=== PATIENT | male | born 1940 | race Caucasian/White ===

== ENCOUNTER → 2018-05-09 11:51 | Outpatient (CLI) | payer MEDICARE, BC, SELFPAY ==
--- NOTE | 2018-05-09 11:59 | XR_ITS ---
XR shoulder RT min 2V HISTORY: ITS.REASON: RT SHOULDER PAIN ORDERING PHYSICIAN: Renny Lee MD PATIENT AGE: 77 years Comparison: None FINDINGS: No fracture or dislocation. No lytic or blastic change. No significant arthritic change. There is minimal cortical irregularity of the greater tuberosity. Pleural-parenchymal opacification with pleural thickening is noted on the right with blunting of the right CP angle. There are no previous exams available for comparison. IMPRESSION: 1. Cortical irregularity of the greater tuberosity which may be seen with rotator cuff disease 2. Chronic changes of the right lung
== END ==
PROVIDERS: PCP Family Medicine; Visit Provider Family Medicine
DX: M25.511 Pain in right shoulder (principal)
CPT/HCPCS: 73030

== ENCOUNTER → 2019-12-23 13:37 | Outpatient (CLI) | payer MEDICARE, BC, SELFPAY ==
--- NOTE | 2019-12-23 | CA_ITS ---
APPROVED REPORT Left Lower Extremity Venous Study for DVT. [employer]: CT Indications Lower Extremity Pain: Left DVT of Lower Extremity: Left Vein Imaging CFV (L): compressive, spontaneous, phasic, augmentation SFJ (L): compressive, spontaneous, phasic, augmentation FEM (L): compressive, spontaneous, phasic, augmentation POP (L): compressive, spontaneous, phasic, augmentation DFV (L): compressive, spontaneous, phasic, augmentation PTV (L): compressive, spontaneous, phasic, augmentation GSV (L): compressive, spontaneous, phasic, augmentation SSV (L): compressive, spontaneous, phasic, augmentation Peroneals (L):compressive, spontaneous, phasic, augmentation GAS (L): compressive, spontaneous, phasic, augmentation Findings LLE negative for DVT/SVT. Vessels fully compressible. No reflux noted. Conclusion LLE negative for DVT/SVT. Vessels fully compressible. No reflux noted. Electronically signed by : Dominic Joya MD 12/23/2019 17:24:28
== END ==
PROVIDERS: PCP Family Medicine; Visit Provider Nurse Practitioner
DX: M79.662 Pain in left lower leg (principal)
CPT/HCPCS: 93971

== ENCOUNTER → 2020-01-13 09:11 | Outpatient (CLI) | payer MEDICARE, BC, SELFPAY ==
--- NOTE | 2020-01-13 | CA_ITS ---
APPROVED REPORT EXAM: Comprehensive 2D, Doppler, and color-flow Echocardiogram Tip Inserter: Daya Chery RT(R) Ht: 5 ft 8 in Wt: 148lbs BSA: 1.80 BP: 145/82 mmHg Indications: Palpitations, edema, HTN, SÁNCHEZ, hyperlipidemia, hx of CABG, pacemaker 2D Dimensions LVOT 1.93 cm (M/F) 1.5-2.5 M-Mode Dimensions RVDd 2.51 cm (0.9-2.6) LVDd 5.46 cm (3.5-5.7) LVDs 4.87 cm (3.5-5.7) IVSd 0.78 cm (0.6-1.1) PWd 0.78 cm (0.6-1.1) EF (Teich) 23.30% FS 10.80% EDV (Teich) 145.00 mL ESV (Teich) 111.20 mL LV Diastology E/A Ratio 3.24 Mitral Valve MV A Velocity 38.00 (40-130 cm/s) Left Ventricle Left atrium is moderately enlarged, left ventricle is mildly dilated, mild concentric left ventricular hypertrophy, reduced left ventricular systolic function, visually estimated ejection fraction 30%, there is marked hypokinesis involving the mid to distal septum, anterior, anterior apical and anterolateral wall. Grade 2 diastolic dysfunction seen with tissue Doppler evidence of raise left atrial pressure. Right Ventricle Right atrium and right ventricle are normal size and contractility, there is pacemaker leads in right ventricle. Aortic Valve Aortic valve is thickened and calcified without Doppler evidence of aortic stenosis, there is mild aortic insufficiency. Mitral Valve Mitral valve leaflets are minimally thickened, there is no mitral stenosis, there is moderate mitral regurgitation. Tricuspid Valve Tricuspid valve is grossly normal, there is mild tricuspid regurgitation, tricuspid regurgitation jet velocity is inadequate for calculation of the right ventricular systolic pressure. Pulmonic Valve Pulmonic valve is poorly visualized. Great Vessels Aortic root is normal size. Pericardium No significant pericardial effusion noted. Conclusion 1. Moderately in the left atrium, mildly dilated left ventricle, mild concentric left ventricular hypertrophy, severely reduced left ventricular systolic function, visually estimated ejection fraction 30% with segmental wall motion abnormality described above, grade 2 diastolic dysfunction seen with tissue Doppler evidence of raise left atrial pressure. 2. Thickened and calcified aortic valve without aortic stenosis, there is mild aortic insufficiency. 3. Moderate mitral and mild tricuspid regurgitation. 4. No significant pericardial effusion noted. Electronically signed by : Daniel Bryan, 01/14/2020 13:44:42
--- NOTE | 2020-01-13 09:58 | XR_ITS ---
PROCEDURE: XR TIBIA FIBULA LT 2V CLINICAL INDICATION: PAIN IN LT CALF COMPARISON: No exams were available for comparison FINDINGS: No fracture or dislocation. No lytic or blastic change. There is normal mineralization. The joint spaces are well-preserved. No significant degenerative/arthritic changes. No erosive changes evident. Other findings:Small clip is present along the medial distal calf with small clips also noted along the medial proximal CT. IMPRESSION: No acute findings. Dictated by: Dominic Joya MD 01/13/2020 16:36 Dominic Joya MD in [place] 01/13/2020 16:36
== END ==
PROVIDERS: PCP Family Medicine; Visit Provider Nurse Practitioner
DX: I25.5 Ischemic cardiomyopathy (principal); I50.22 Chronic systolic (congestive) heart failure; M79.662 Pain in left lower leg
CPT/HCPCS: 73590; 93306

== ENCOUNTER → 2020-03-14 10:55 | Outpatient (CLI) | payer MEDICARE, BC, SELFPAY ==
--- NOTE | 2020-03-14 11:14 | ECG_ITS ---
APPROVED REPORT Exam: Resting ECG HR:69 bpm ECG Measurements Heart Rate 69 AXES SD 368 P -29 QRSd 102 QRS 29 QT 420 T -68 QTc 450 Conclusion Sinus rhythm with sinus arrhythmia with 1st degree AV block ST/T-wave changes are unchanged since 2009 Abnormal ECG Electronically signed by : Jose Ryan, 03/14/2020 19:08:20
== END ==
PROVIDERS: PCP Family Medicine; Visit Provider Physician Assistant
DX: I48.0 Paroxysmal atrial fibrillation (principal)
CPT/HCPCS: 93005

== ENCOUNTER → 2021-01-27 08:23 | Outpatient (CLI) | payer MEDICARE, BC, SELFPAY | PROVIDERS: PCP Family Medicine; Visit Provider Family Medicine | DX: I50.22 Chronic systolic (congestive) heart failure (principal) | CPT/HCPCS: 93306 ==

== ENCOUNTER → 2021-10-25 06:14 | Outpatient (CLI) | payer MEDICARE, BC, SELFPAY ==
[2021-10-24 21:38] LABS: Alanine Aminotransferase 22 U/L (12-78); Albumin Level 3.7 g/dl (3.5-5.0); Albumin/Globulin Ratio 1.1 (1.1-1.8); Alkaline Phosphatase 189 U/L (38-126); Anion Gap 13.3 mEq/L (5-15); Aspartate Amino Transferase 40 U/L (17-59); Bilirubin,Total 1.2 mg/dl (0.2-1.3); Blood Urea Nitrogen 34 mg/dl (9-20); Carbon Dioxide 26 mmol/L (22.0-30.0); Chloride 101 mmol/L (98-107); Estimated Glomerular Filt Rate 48 ml/min (>60); GFR (African American) 59 ML/MIN (>60); Globulin 3.4 g/dL (1.3-3.2); Glucose 131 mg/dl (74-100); Potassium 4.3 mmoL/L (3.5-5.1); Sodium 136 mmol/L (136-145); Total Protein,Serum 7.1 g/dl (6.3-8.2)
== END ==
PROVIDERS: PCP Family Medicine; Visit Provider Family Medicine
DX: I50.23 Acute on chronic systolic (congestive) heart failure (principal)
CPT/HCPCS: 80053

== ENCOUNTER → 2021-11-17 12:54 | Outpatient (CLI) | payer MEDICARE, BC, SELFPAY ==
[2021-11-17 19:09] LABS: Anion Gap 14.5 mEq/L (5-15); Calcium 9.2 mg/dl (8.4-10.2); Carbon Dioxide 28 mmol/L (22.0-30.0); Chloride 92 mmol/L (98-107); Estimated Glomerular Filt Rate 41 ml/min (>60); GFR (African American) 50 ML/MIN (>60); Glucose 111 mg/dl (74-100); Potassium 3.5 mmoL/L (3.5-5.1); Sodium 131 mmol/L (136-145)
[2021-11-17 19:30] LABS: Blood Urea Nitrogen 57 mg/dl (9-20)
== END ==
PROVIDERS: PCP Family Medicine; Visit Provider Family Medicine
DX: N28.9 Disorder of kidney and ureter, unspecified (principal)
CPT/HCPCS: 80048

== ENCOUNTER 2021-11-27 17:12 | Inpatient (IN) | payer MEDICARE, BC, SELFPAY ==
[2021-11-27] VITALS (19 sets, daily range): BP systolic 93–169; BP diastolic 65–100; PULSE 69–107; RESP 16–29; TEMP 34.9–35.7; O2SAT 92–100; BMI 22.8; BMI 23.7; BMI 20.7
--- NOTE | 2021-11-27 | IR_ITS ---
APPROVED REPORT Patient Location: Emergent Contract Attorney: MALLORY Damon RT (R) PROCEDURES Left heart catheterization Left ventriculogram Selective coronary angiogram Drug-eluting stent deployment to the proximal and mid LAD Drug-eluting stent deployment to the proximal circumflex artery Drug-eluting stent deployment to the first obtuse marginal artery Angioplasty to the second obtuse marginal artery INDICATION Presumed acute ST elevation myocardial infarction, Coronary artery disease, Cardiogenic shock SCAI INDICATION Clinical history gentleman with history of AICD and apparent ischemic heart disease presents with recalcitrant abdominal discomfort nausea and diaphoresis. EKG was nondiagnostic however suggestive for an acute ischemic event given clinical presentation and the wide QRS. Based on patient's diaphoresis it was felt this patient was experiencing an ST elevation. This was the presumed diagnosis by both the emergency room physician as well as interventional cardiology. Because of this patient was acutely taken to the [facility] for planned percutaneous intervention. Informed consent was obtained prior to the procedure. COMPLICATIONS NONE Estimated Blood Loss: LESS THAN 10 ML TECHNIQUE One percent lidocaine used to anesthetize the right anterior aspect of the wrist. The right radial artery was accessed via the Seldinger technique. A 6 English sheath was placed in the right radial artery. 2.5 mg of verapamil, 800 mcg of nitroglycerin, 1mg Lidocaine and 5000 U Heparin were given through the arterial sheath. The papa catheter was also used to perform left heart catheterization, left ventriculogram and selective coronary angiogram. At the end of the diagnostic angiogram therapeutic heparin was administered. Patient had vitals consistent with cardiogenic shock as well as severe LV dysfunction. The LAD was critically diseased as was the first obtuse marginal artery. Therapeutic heparin was administered giving a therapeutic ACT and a Choice PT extra-support wire was placed down the LAD a 3 mm x 22 mm resolute [place] stent was deployed at 20 kinga in the proximal LAD. A 3.25 x 8 mm noncompliant balloon was then placed proximal in the LAD and deployed at 24 kinga. This did not reduce the stenosis all the way therefore 3.5 x 8 mm noncompliant balloon was then deployed at 24 and then 28 kinga further reducing the stenosis. KYLE-3 flow was restored. Distal to the stent lesion was still identified therefore a 2.5 x 22 mm resolute Washington stent was then placed distal to the first stent yet still overlapping it and deployed at 18 kinga. The balloon was brought back and deployed at 30 kinga to post dilate the 2 stents. After achieving excellent results the wire was placed into the first obtuse marginal artery where primary stenting could not be performed. A 2 mm balloon was used to predilate the stenosis followed by a 2.5 mm noncompliant balloon. This allowed placement of a 3 mm x 22 mm resolute Delfin stent to be deployed in the proximal circumflex artery. Following this additional dilatation was made and then a 2.5 x 12 mm resolute Delfin stent was then placed in the first obtuse marginal artery and deployed at 18 kinga. The balloon was brought back at the ostium and deployed at 24 kinga to post dilate. The LAD wire was pulled back and placed into the second obtuse marginal artery where a 2.5 x 12 mm compliant balloon was then deployed at 15 kinga to post dilate. KYLE-3 flow was present down all 3 vessels the LAD circumflex artery first and second obtuse marginal artery. After achieving excellent angiograph results it was decided to terminate the procedure due to wide patency of all vessels and excellent results. The pa
--- NOTE | 2021-11-27 17:10 | ECG_ITS ---
APPROVED REPORT Exam: Resting ECG HR:70 bpm ECG Measurements Heart Rate 70 AXES VA 340 P 233 QRSd 232 QRS -76 QT 525 T 97 QTc 545 Conclusion ELECTRONIC ATRIAL PACEMAKER ELECTRONIC VENTRICULAR PACEMAKER ABNORMAL RHYTHM ECG INTERPRETATION BASED ON A DEFAULT AGE OF 40 YEARS UNCONFIRMED REPORT Electronically signed by : Jose Ryan MD 11/28/2021 16:49:56
--- NOTE | 2021-11-27 17:14 | PC.NURSE ---
survey instrument operator paging dr. ashford
--- NOTE | 2021-11-27 17:18 | XR_ITS ---
PROCEDURE INFORMATION: Exam: XR Chest Exam date and time: 11/27/21 05:35 PM Age: 81 years old Clinical indication: Other: Syncope TECHNIQUE: Imaging protocol: Radiologic exam of the chest. Views: 1 view. COMPARISON: ABDPELW/O CT ABD PELVIS W/O CONTRAST 12/01/16 06:35 AM FINDINGS: Tubes, catheters and devices: Left subclavian pacemaker leads overlie the right atrium and right ventricle. Lungs: Biapical fibronodular scarring right greater than left. Pleuroparenchymal scarring in both lung bases. Pleural spaces: Pleural calcifications. Heart/Mediastinum: CABG. Cardiomegaly without overt CHF. Bones/joints: Unremarkable. IMPRESSION: 1. Pleuroparenchymal scarring in both lung bases. Pleural calcifications. 2. CABG. Cardiomegaly without overt CHF.
--- NOTE | 2021-11-27 17:19 | PC.NURSE ---
LUZ KLEIN speaking with Dr. Kapadia at this time.
--- NOTE | 2021-11-27 17:22 | PC.NURSE ---
Per ER MD obtain repeat EKG after soduim bicarbonate and calcium gluconate
[2021-11-27 17:35] LABS: Basophils % 0.4 % (0.1-2.0); Eosinophils # 0.1 K/mm3 (0.0-0.4); Eosinophils % 2.8 % (0.1-12.0); Hematocrit 30.9 % (42.0-52.0); Hemoglobin 9.7 g/dL (14.1-18.0); Lymphocytes # 0.9 K/mm3 (0.7-4.5); Mean Corpuscular HGB Conc 31.4 g/dL (31.8-35.4); Mean Corpuscular Volume 86.2 fl (80-94); Mean Platelet Volume 8.2 fl (7.4-10.4); Monocytes # 0.3 K/mm3 (0.1-1.0); Monocytes % 7.1 % (1.7-9.3); Neutrophils # 3.3 K/mm3 (1.8-7.8); Neutrophils % 70.8 % (37.0-80.0); Platelet Count 200 K/mm3 (142-424); Red Blood Count 3.59 M/mm3 (4.60-6.20); White Blood Count 4.7 K/mm3 (4.8-10.8)
[2021-11-27 17:42] LABS: Chloride 98 mmol/L (98-107); Potassium 3.7 mmoL/L (3.5-5.1); Sodium 135 mmol/L (136-145)
[2021-11-27 17:45] LABS: Alanine Aminotransferase 25 U/L (12-78); Albumin/Globulin Ratio 1.1 (1.1-1.8); Alkaline Phosphatase 190 U/L (38-126); Anion Gap 14.7 mEq/L (5-15); Aspartate Amino Transferase 50 U/L (17-59); Bilirubin,Total 1.6 mg/dl (0.2-1.3); Blood Urea Nitrogen 48 mg/dl (9-20); Carbon Dioxide 26 mmol/L (22.0-30.0); Estimated Glomerular Filt Rate 32 ml/min (>60); GFR (African American) 39 ML/MIN (>60); Globulin 3.6 g/dL (1.3-3.2); Total Protein,Serum 7.6 g/dl (6.3-8.2)
[2021-11-27 17:46] LABS: Calcium 8.9 mg/dl (8.4-10.2); Glucose 142 mg/dl (74-100)
--- NOTE | 2021-11-27 17:47 | HMH.EDGENADL ---
Discharge Plan Disposition Patient Disposition: Admitted As Inpatient Chief Complaint: Syncope Discharge ED Provider: Wood Ho General Adult HPI General Chief complaint: Syncope Stated complaint: found unresponsive outside Time Seen by Provider: 11/27/21 17:15 Mode of Arrival: EMS Source of Information: EMS Limitations: Altered Mental Status History of Present Illness HPI narrative: This is a 81-year-old male with history of ACS status post AICD placement, CABG, currently on Eliquis, CHF, ischemic cardiomyopathy presenting with syncopal episode. Per EMS, patient walked outside had syncopal episode around 1600, 1 hour prior to arrival. found patient, called EMS. On EMS arrival, patient was confused, but arousable. Patient denies any memory of anything that happened. EMS states the patient had epistaxis on arrival, but that resolved with pressure. Patient was quickly brought to the [facility] for further evaluation. On arrival, patient had period of unresponsiveness for approximately 30 to 45 seconds, but maintained a pulse and was confused shortly thereafter again. Related Data Home Medications Medication Instructions Recorded Confirmed apixaban 5 mg tablet (Eliquis) 5 mg PO BID 10/18/21 11/17/21 aspirin 81 mg tablet,delayed 81 mg PO DAILY 10/18/21 11/17/21 release atorvastatin 10 mg tablet 10 mg PO DAILY 10/18/21 11/17/21 carvedilol 12.5 mg tablet 12.5 mg PO BID 10/18/21 11/17/21 lisinopril 20 mg tablet 20 mg PO DAILY 10/18/21 11/17/21 Previous Rx's Medication Instructions Recorded benzonatate 150 mg capsule 150 mg PO TID PRN common cold 03/30/18 cough #14 caps furosemide 20 mg tablet 40 mg PO DAILY #60 tabs 10/24/21 metolazone 2.5 mg tablet 2.5 mg PO DAILY edema #30 tabs 10/24/21 Allergies Allergy/AdvReac Type Severity Reaction Status Date / Time No Known Allergies Allergy Verified 11/20/21 13:52 [facility] Medical History (Updated 11/27/21 @ 20:58 by Wood Ho MD) Sinusitis Social History (System 11/20/21 @ 13:52 by Hugo López) Smoking Status: Never smoker alcohol intake: current substance use type: denies use current occupational status: retired ROS Obtained: Yes unobtainable due to mental status Physical Exam General General appearance: in no apparent distress Comment: Tired, but arousable. Diaphoretic Head Head exam: normocephalic, normal inspection and other (Blood dried in right nostril, but no evidence of nasal septal hematoma) Eye Eye exam: Present normal appearance, PERRL and EOMI ENT ENT exam: Present normal exam, normal oropharynx, mucous membranes moist, TM's normal bilaterally and normal external ear exam Neck Neck exam: Present normal inspection, full ROM and trachea midline; Absent meningismus or lymphadenopathy Chest Chest inspection: Present normal inspection, symmetric chest wall rise and other (AICD left upper outer chest); Absent tenderness Respiratory Respiratory exam: Present normal lung sounds bilaterally; Absent respiratory distress Cardiovascular Cardiovascular exam: Present regular rate and normal rhythm; Absent JVD Abdominal Exam Abdominal exam: Present soft, tenderness (Diffusely, no rebound, rigidity, or guarding) and normal bowel sounds; Absent distention, guarding, rebound or rigidity Abdominal tenderness: Present epigastrium Extremities Exam Extremities exam: Present normal inspection, full ROM and normal capillary refill; Absent calf tenderness Back Exam Back exam: Present normal inspection; Absent tenderness Neurological Exam Neurological exam: Present alert; Absent oriented X3 (Oriented only to person and place) Psychiatric Psychiatric exam: Present normal affect and normal mood Skin Skin exam: Present warm, dry, intact and normal color Lymphatic Lymphatic Findings: no adenopathy Medical Decision Making Medical Records Medical records reviewed: Yes I reviewed the patient's medical records. Chencho [place]
--- NOTE | 2021-11-27 17:49 | CT_ITS ---
PROCEDURE INFORMATION: Exam: CT Cervical Spine Without Contrast Exam date and time: 11/27/21 05:55 PM Age: 81 years old Clinical indication: Injury or trauma; Other: Syncope; Additional info: Fall, on eliquis TECHNIQUE: Imaging protocol: Computed tomography of the cervical spine without contrast. Radiation optimization: All CT scans at this facility use at least one of these dose optimization techniques: automated exposure control; mA and/or kV adjustment per patient size (includes targeted exams where dose is matched to clinical indication); or iterative reconstruction. COMPARISON: CT HEAD/BRAIN WO CON 11/27/21 05:53 PM FINDINGS: Bones/joints: Reversal of usual cervical lordosis at C2-C3. C2-C3: No significant disc protrusion. No severe spinal canal stenosis. No significant neural foraminal narrowing. C3-C4: No significant disc protrusion. No severe spinal canal stenosis. No significant neural foraminal narrowing. C4-C5: No significant disc protrusion. No severe spinal canal stenosis. No significant neural foraminal narrowing. C5-C6: Disc space narrowing C5-C6. No significant disc protrusion. No severe spinal canal stenosis. No significant neural foraminal narrowing. C6-C7: Disc space narrowing C6-C7. No significant disc protrusion. No severe spinal canal stenosis. No significant neural foraminal narrowing. C7-T1: No significant disc protrusion. No severe spinal canal stenosis. No significant neural foraminal narrowing. Lungs: Lung apices are normal. Soft tissues: Unremarkable. IMPRESSION: 1. No acute traumatic findings. 2. Degenerative changes appear chronic.
--- NOTE | 2021-11-27 17:49 | CT_ITS ---
PROCEDURE INFORMATION: Exam: CT Head Without Contrast Exam date and time: 11/27/21 05:53 PM Age: 81 years old Clinical indication: Injury or trauma; Other: Syncope; Additional info: AMS, fall, on eliquis TECHNIQUE: Imaging protocol: Computed tomography of the head without contrast. Radiation optimization: All CT scans at this facility use at least one of these dose optimization techniques: automated exposure control; mA and/or kV adjustment per patient size (includes targeted exams where dose is matched to clinical indication); or iterative reconstruction. COMPARISON: No relevant prior studies available. FINDINGS: Brain: Periventricular and subcortical small vessel ischemic changes. Mild atrophy associated. No acute hemorrhage, mass effect, midline shift, or extra-axial fluid collection. Cerebral ventricles: No ventriculomegaly. Paranasal sinuses: Visualized sinuses are unremarkable. No fluid levels. Mastoid air cells: Visualized mastoid air cells are well aerated. Bones/joints: Unremarkable. No acute fracture. Soft tissues: Unremarkable. IMPRESSION: No acute intracranial abnormality.
[2021-11-27 17:54] LABS: NT Pro Brain Natriuretic Pep. 4080 pg/mL (0-450)
--- NOTE | 2021-11-27 17:57 | PC.NURSE ---
pt to CT via stretcher
[2021-11-27 17:58] LABS: Troponin I 0.03 ng/ml (0.00-0.034)
--- NOTE | 2021-11-27 18:10 | ECG_ITS ---
APPROVED REPORT Exam: Resting ECG HR:70 bpm ECG Measurements Heart Rate 70 AXES DE 346 P 236 QRSd 235 QRS -71 QT 529 T 98 QTc 549 Conclusion ELECTRONIC ATRIAL PACEMAKER ELECTRONIC VENTRICULAR PACEMAKER ABNORMAL RHYTHM ECG UNCONFIRMED REPORT Electronically signed by : Jose Ryan MD 11/28/2021 16:49:50
[2021-11-27 18:12] LABS: Creatinine Clearance Estimated 31 mL/min (50-200)
--- NOTE | 2021-11-27 18:16 | PC.NURSE ---
LUZ KLEIN speaking with dr ashford again at this time
[2021-11-27 18:18] LABS: Coronavirus 19, PCR Not Detected (NotDetected); Influenza A, PCR Not Detected (NotDetected); Influenza B, PCR Not Detected (NotDetected)
--- NOTE | 2021-11-27 18:19 | PC.NURSE ---
NIKITA Rosas calling for slab conditioner supervisor team.
--- NOTE | 2021-11-27 18:20 | PC.NURSE ---
pt placed in gown, pads placed on pt, bilateral groins shaved to prepare for hearth cath. Pt tolerated well. PT belonging placed in bag and given to .
--- NOTE | 2021-11-27 18:22 | PC.NURSE ---
1819: Spoke with Lainey Kumar RN to notify of STEMI. 1820: Spoke with Teresita Mckinley RN to notify of STEMI. 1821: Spoke with MASON Devlin to notify of STEMI.
--- NOTE | 2021-11-27 18:23 | PC.NURSE ---
Bala Ayers for ER MD
--- NOTE | 2021-11-27 18:30 | PC.NURSE ---
Warm blankets given, for low rectal temp
--- NOTE | 2021-11-27 18:41 | PC.NURSE ---
spoke with at this time, states to hold on heparin, brillinta and aspirin at this time until after heart cath in done
--- NOTE | 2021-11-27 18:50 | PC.NURSE ---
pt taken to pie bakery laborer per HS and myself. escorted to cath waiting area.
[2021-11-27 20:09] LABS: CATHL Activated Clotting Time > 400 SEC (74-125)
--- NOTE | 2021-11-27 20:38 | PC.NURSE ---
report taken from cardiac catheterization technician RN Liliana, asked if still needed ordered troponins when pt arrives to room RN said can discontinue them, awaiting pt's arrival to 217
--- NOTE | 2021-11-27 20:42 | PC.NURSE ---
PT ARRIVED TO FLOOR VIA STRETCHER FROM HEAD STOCK TRANSFER CLERK [id number]
--- NOTE | 2021-11-27 20:45 | PC.NURSE ---
temperature 94.8 rectal, placed rl hugger on pt with warm blankets and increased room temperature on thermostat
--- NOTE | 2021-11-27 21:02 | PC.NURSE ---
Sarina Galaviz home [phone], cell [phone] Marcellus Galaviz son [phone]
--- NOTE | 2021-11-27 21:30 | PC.NURSE ---
took 3mL air out of tracelet, but started bleeding so put the 3mL air back in tracelet
--- NOTE | 2021-11-27 22:00 | PC.NURSE ---
took 3mL air out of tracelet, but started bleeding so put the 3mL air back in tracelet
--- NOTE | 2021-11-27 23:00 | PC.NURSE ---
took 2 mL air out of tracelet, but started bleeding so put the 2mL air back in tracelet
[2021-11-28] VITALS (15 sets, daily range): BP systolic 90–116; BP diastolic 55–76; PULSE 69–95; RESP 20–31; TEMP 36.1–36.8; O2SAT 90–99; BMI 20.3
--- NOTE | 2021-11-28 01:19 | PC.NURSE ---
oral temperature 98.1, removed rl lucas from pt
[2021-11-28 06:43] LABS: Basophils % 0.3 % (0.1-2.0); Eosinophils % 0.7 % (0.1-12.0); Hematocrit 28.4 % (42.0-52.0); Lymphocytes # 0.9 K/mm3 (0.7-4.5); Mean Corpuscular HGB Conc 30.6 g/dL (31.8-35.4); Mean Corpuscular Hemoglobin 26.4 pg (27.0-31.2); Mean Corpuscular Volume 86.3 fl (80-94); Mean Platelet Volume 8.4 fl (7.4-10.4); Monocytes # 0.5 K/mm3 (0.1-1.0); Monocytes % 8.9 % (1.7-9.3); Neutrophils # 4.4 K/mm3 (1.8-7.8); Platelet Count 166 K/mm3 (142-424); Red Cell Distribution Width 15.2 % (11.5-17.5); White Blood Count 5.9 K/mm3 (4.8-10.8)
[2021-11-28 06:46] LABS: Hemoglobin 8.7 g/dL (14.1-18.0)
--- NOTE | 2021-11-28 07:25 | EXP.PHA.VTE ---
[facility] VTE Monitoring Patient Demographics Admission date: 11/27/21 Report Date: 11/28/21 Time: 07:25 Patient Allergies No Known Allergies Allergy (Verified 11/20/21 13:52) Height: 1.83 m Weight: 68.266 kg Current Active Problems (Updated 11/27/21 @ 20:58 by Wood Ho MD) Systolic CHF with reduced left ventricular function, NYHA class 3 (Chronic) Cardiogenic shock (Acute) VTE Risk Labs: VTE Related Lab Results Hgb 8.7 g/dL (14.1-18.0) L D 11/28/21 05:57 Hct 28.4 % (42.0-52.0) L 11/28/21 05:57 Plt Count 166 K/mm3 (142-424) 11/28/21 05:57 BUN 48 mg/dl (9-20) H 11/27/21 17:22 Creatinine 2.00 mg/dl (0.66-1.25) H 11/27/21 17:22 Estimated Creat Clear 31 mL/min (50-200) 11/27/21 17:22 Prophylaxis VTE Prophylaxis Ordered?: Yes Types of VTE Prophylaxis: TEDS Knee High Location of Applied Device: Bilateral Lower Extremeties
[2021-11-28 07:50] LABS: Chloride 96 mmol/L (98-107); Potassium 3.5 mmoL/L (3.5-5.1); Sodium 134 mmol/L (136-145)
[2021-11-28 07:53] LABS: Anion Gap 14.5 mEq/L (5-15); Blood Urea Nitrogen 50 mg/dl (9-20); Calcium 9.3 mg/dl (8.4-10.2); Carbon Dioxide 27 mmol/L (22.0-30.0); Creatinine Clearance Estimated 26 mL/min (50-200); Estimated Glomerular Filt Rate 30 ml/min (>60); GFR (African American) 37 ML/MIN (>60); Glucose 111 mg/dl (74-100)
--- NOTE | 2021-11-28 09:06 | EXP.ACUTE.PN ---
Subjective *Date: 11/28/21 *Time: 09:18 Interval history: The chart is reviewed especially with regards to cardiology consultation and cardiac catheterization. He seems to be comfortable this morning. He shows a paced heart rhythm. He is not short of breath. He has no pain. Medical Exam Vital signs and Labs for Last 24 Hours: Temp Pulse Resp BP Pulse Ox 97.8 F 70 22 99/62 L 94 L 11/28/21 04:00 11/28/21 08:00 11/28/21 06:00 11/28/21 06:00 11/28/21 08:00 Laboratory Results - last 24 hr 11/27/21 17:22: WBC 4.7 L, RBC 3.59 L, Hgb 9.7 L, Hct 30.9 L, MCV 86.2, MCH 27.0, MCHC 31.4 L, RDW 15.0, Plt Count 200, MPV 8.2, Neut % (Auto) 70.8, Lymph % (Auto) 19.0, [place] % (Auto) 7.1, Eos % (Auto) 2.8, Baso % (Auto) 0.4, Neut # (Auto) 3.3, Lymph # (Auto) 0.9, Screven # (Auto) 0.3, Eos # (Auto) 0.1, Baso # (Auto) 0.0 11/27/21 17:22: Sodium 135 L, Potassium 3.7, Chloride 98, Carbon Dioxide 26, Anion Gap 14.7, BUN 48 H, Creatinine 2.00 H, Estimated Creat Clear 31, Estimated GFR 32 L, Est GFR ( Amer) 39 L, Glucose 142 H, Calcium 8.9, Total Bilirubin 1.6 H, AST 50, ALT 25, Alkaline Phosphatase 190 H, Troponin I 0.03, NT-Pro-B Natriuret Pep 4080 H, Total Protein 7.6, Albumin 4.0, Globulin 3.6 H, Albumin/Globulin Ratio 1.1 11/27/21 17:22: SARS-CoV-2 (PCR) Not detected, Influenza A Untype (PCR) Not detected, Influenza Type B (PCR) Not detected 11/27/21 19:21: Activated Clotting Time > 400 H* 11/28/21 05:57: WBC 5.9 D, RBC 3.30 L, Hgb 8.7 L D, Hct 28.4 L, MCV 86.3, MCH 26.4 L, MCHC 30.6 L, RDW 15.2, Plt Count 166, MPV 8.4, Neut % (Auto) 74.0, Lymph % (Auto) 16.0, [place] % (Auto) 8.9, Eos % (Auto) 0.7, Baso % (Auto) 0.3, Neut # (Auto) 4.4, Lymph # (Auto) 0.9, Screven # (Auto) 0.5, Eos # (Auto) 0.0, Baso # (Auto) 0.0 11/28/21 05:57: Sodium 134 L, Potassium 3.5, Chloride 96 L, Carbon Dioxide 27, Anion Gap 14.5, BUN 50 H, Creatinine 2.10 H, Estimated Creat Clear 26, Estimated GFR 30 L, Est GFR ( Amer) 37 L, Glucose 111 H D, Calcium 9.3 I & O for Labs for Last 24 Hours: Intake & Output 11/25/21 11/26/21 11/27/21 11/28/21 11:59 11:59 11:59 11:59 Intake Total 120 / 120 Output Total 1275 / 1275 Balance -1155 / -1155 Weight 150 lb 8 oz Head: normal inspection Eyes: other (Normal) ENT: mucous membranes moist Neck: full ROM and other (Neck veins are visible because he is thin.) Respiratory: CTA bilaterally and rales (Fibrotic bibasilar) Cardiac: Reg Rate and Rhythm (Paced rhythm) and Systolic Murmur (Aortic) GI: soft and tenderness Extremities: edema Skin: intact (Dressing in place on the right wrist) Neuro: alert, awake and oriented x 3 Assessment and Plan *Assessment and plan (1) Syncope: Status: Acute Qualifiers: Syncope type: unspecified Qualified Code(s): R55 - Syncope and collapse Category: Medical Code(s): R55 - Syncope and collapse (2) Presence of combination internal cardiac defibrillator (ICD) and pacemaker: Status: Chronic Category: Medical Code(s): Z95.810 - Presence of automatic (implantable) cardiac defibrillator (3) Ischemic cardiomyopathy: Status: Chronic Category: Medical Code(s): I25.5 - Ischemic cardiomyopathy (4) Cardiogenic shock: Status: Acute Category: Medical Code(s): R57.0 - Cardiogenic shock (5) History of coronary artery bypass graft: Status: Chronic Category: Surgical Code(s): Z95.1 - Presence of aortocoronary bypass graft (6) Localized edema: Problem details: Continue present diuretic regimen. 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
--- NOTE | 2021-11-28 09:55 | EXP.CARD.CON ---
History of Present Illness History of Present Illness Consult date: 11/28/21 Requesting physician: Any Hedrick Chief complaint: syncope Additional Medical History:: Past Medical HX: - CAD S/p CAB - PAF on Eliquis - Chronic systolic heart failure with AICD in place. Sees Dr. Ochoa - HTN [facility] 11/27/2021 IMPRESSION Critical two-vessel coronary disease involving the proximal LAD and circumflex artery along with obtuse marginal artery Successful stenting the proximal to mid LAD critical disease reduced to 0% with 2 contiguous drug-eluting stents Successful stenting the proximal circumflex artery severe disease reduced to 0% followed by additional stenting into the first obtuse marginal artery reducing the critical subtotal occlusion to 0% Successful angioplasty of the second obtuse marginal artery reducing a jailed 90% stenosis to 0% Critical left ventricular dysfunction with severely elevated LVEDP and severe regional wall motion abnormality PLAN 1. Supportive care which should include dual antiplatelet therapy 2. Avoidance of IV fluids due to GENNA and cardiogenic shock 3. Brilinta 90 twice daily plus aspirin 81 mg daily 4. Supportive care 5. Depending on the results of the creatinine tomorrow it would be reasonable to start patient on Entresto while carefully monitoring creatinine levels 6. Recommend renal duplex to evaluate for renal artery stenosis 7. Echocardiogram in the morning 8. Low-dose beta-blockers once hemodynamically stable 9. Gentle diuresis due to critically elevated LVEDP.? I do anticipate the EDP will improve now that patient has been revascularized and LV dysfunction should hopefully improved from acute stenting 10. LDL less than 55 to be achieved with high intensity statin History of present illness: ER note: -This is a 81-year-old male with extensive cardiac history who is presenting with syncopal episode.? On arrival, patient normotensive, nontachycardic, alert, disoriented, has no recollection of the event.? Moving all extremities spontaneously, pupils equal and reactive to light.? Differential includes intracranial hemorrhage, cardiogenic shock, [place], PE, pneumothorax, arrhythmia, medication induced, intoxication, withdrawal, among others.? Given patient's EKG differences from most recent, cardiology consulted for evaluation.? Recommended treatment for hyperkalemia empirically with calcium gluconate 2 g, as well as 25 mill equivalent bicarb.? Patient was given these medications and repeat EKG was obtained.? Repeat EKG similar to initial without evidence of STEMI, but ventricularly paced rhythm, wide complex.? Patient has GENNA with creatinine of 2 up from 1.4 baseline, mildly uremic at 48.? BUN 4100, initial troponin 0.03.? [facility] was activated per cardiology recommendations prior to rest of labs and imaging resulting.? Patient transferred to [facility] and admitted for urgent intervention.? See cardiology note for further description and characterization of patient's likely cardiogenic shock. Cardiology consult note: - 81 year old male with above past medical hx presented to ER with above complaint of syncope. Upon presentation to ER patient's EKG showed a vpaced wide complex rhythm. Patient was taken to [facility] were he recieved stenting to LAD and Circ with angioplasty to the second obtuse marginal artery. EF was noted to be 15% and LVEDP was severely elevated at 50. Patient currently has as [employer] Dual Chamber AICD in place. This morning patient denies chest pain but reports soa. CT head negative for acute process. Repeat echo pending Labs: Creatinine 2.0 on admit, today 2.10 WBC 5.9 HBG 8.7 Sodium 134 Potassium 3.5 PFSH PFSH Medical History (Updated 11/28/21 @ 10:27 by No Abbasi, NITISH) Cholecystectomy planned Sinusitis Surgical History (Updated 11/28/21 @ 10:27 by No Abbasi, NITISH) History of inguinal hernia repair Hx of CABG Hx of transurethral resection of prostate Famil
--- NOTE | 2021-11-28 09:56 | EXP.HP ---
History of Present Illness *Admission Date: 11/27/21 *History of present illness: HPI narrative: This is a 81-year-old male with history of ACS status post AICD placement, CABG, currently on Eliquis, CHF, ischemic cardiomyopathy presenting with syncopal episode.? Per EMS, patient walked outside had syncopal episode around 1600, 1 hour prior to arrival.? found patient, called EMS.? On EMS arrival, patient was confused, but arousable.? Patient denies any memory of anything that happened.? EMS states the patient had epistaxis on arrival, but that resolved with pressure.? Patient was quickly brought to the [facility] for further evaluation.? On arrival, patient had period of unresponsiveness for approximately 30 to 45 seconds, but maintained a pulse and was confused shortly thereafter again. Medical Decision Narrative: This is a 81-year-old male with extensive cardiac history who is presenting with syncopal episode.? On arrival, patient normotensive, nontachycardic, alert, disoriented, has no recollection of the event.? Moving all extremities spontaneously, pupils equal and reactive to light.? Differential includes intracranial hemorrhage, cardiogenic shock, [place], PE, pneumothorax, arrhythmia, medication induced, intoxication, withdrawal, among others.? Given patient's EKG differences from most recent, cardiology consulted for evaluation.? Recommended treatment for hyperkalemia empirically with calcium gluconate 2 g, as well as 25 mill equivalent bicarb.? Patient was given these medications and repeat EKG was obtained.? Repeat EKG similar to initial without evidence of STEMI, but ventricularly paced rhythm, wide complex.? Patient has GENNA with creatinine of 2 up from 1.4 baseline, mildly uremic at 48.? BUN 4100, initial troponin 0.03.? Skidder was activated per cardiology recommendations prior to rest of labs and imaging resulting.? Patient transferred to [facility] and admitted for urgent intervention.? See cardiology note for further description and characterization of patient's likely cardiogenic shock. The above as per ER documentation. left cardiac cath 11/27/2021: IMPRESSION Critical two-vessel coronary disease involving the proximal LAD and circumflex artery along with obtuse marginal artery Successful stenting the proximal to mid LAD critical disease reduced to 0% with 2 contiguous drug-eluting stents Successful stenting the proximal circumflex artery severe disease reduced to 0% followed by additional stenting into the first obtuse marginal artery reducing the critical subtotal occlusion to 0% Successful angioplasty of the second obtuse marginal artery reducing a jailed 90% stenosis to 0% Critical left ventricular dysfunction with severely elevated LVEDP and severe regional wall motion abnormality This a.m. patient denies chest pain and shortness of breath. 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 He would like to go home. He currently is eating breakfast and enjoying.. PFSH PFSH Medical History (Updated 11/28/21 @ 10:27 by No Abbasi APRN) Cholecystectomy planned Sinusitis Surgical History (Updated 11/28/21 @ 10:27 by No Abbasi APRN) History of inguinal hernia repair Hx of CABG Hx of transurethral resection of prostate Family History (Updated 11/28/21 @ 10:18 by Pepper Garcia APRN) Diabetes Coronary artery disease Stroke Social History Smoking Status: Never smoker alcohol intake: current substance use type: denies use current occupational status: retired Travel in the last 8 weeks: None Review of Systems Constitutional Constitutional: Denies frequent falls, Denies headache(s) and Reports weakness Eyes Eyes: Denies change in vision (wears glasses) ENT Ears, Nose, Mouth, and Throat: Denies dizziness, Denies otalgia, Denies headache(s), Denies sore throat and Denies vertigo *Cardiovascular Cardiovascular: Denies suzanne
--- NOTE | 2021-11-28 10:08 | CA_ITS ---
APPROVED REPORT EXAM: Comprehensive 2D, Doppler, and color-flow Echocardiogram [facility] Teacher: Anne Arreaga, RCS, RVS Ht: 6 ft 0 in Wt: 150lbs BSA: 1.88 BP: 99/62 mmHg Indications: CAD, STEMI-11/27 LAD STENTS, CABG, PACER, CHF, MURMURS 2D Dimensions LVDd 5.67 cm LVEF (Visual) 7.10 % LVDs 5.49 cm LA Volume 124.80 mL Aortic Root 2.69 cm LA Volume Index 66.00 mL/m2 (M/F) 16-34 Left Atrium 4.54 cm LVOT 1.91 cm (M/F) 1.5-2.5 M-Mode Dimensions RVDd 4.50 cm (0.9-2.6) LA Diam 4.99 cm (1.9-4.0) LVDd 6.00 cm (3.5-5.7) Ao Diam 2.87 cm (2.0-3.7) LVDs 5.18 cm (3.5-5.7) IVSd 0.71 cm (0.6-1.1) PWd 0.75 cm (0.6-1.1) EF (Teich) 28.70% EPSs 2.58 cm FS 13.70% EDV (Teich) 180.00 mL TAPSE 0.99 (<1.7) ESV (Teich) 128.40 mL LV Diastology E Decel Time 107.00 (160-240 msec) E/A Ratio 1.45 MED E' 3.80 (< 7 cm/sec) MED A' 4.70 cm/s E'/MED E' Ratio 29.76 (>14) LAT E' 6.20 (<10 cm/sec) LAT A' 7.40 cm/s E/LAT E' Ratio 18.24 (>14) Aortic Valve LVOT Max 72.00 (70-110 cm/s) LVOT VTI 12.83 cm AoV Peak Erick. 222.00 (50-130 cm/s) AO Peak GR. 19.80 mmHg AO Mean GR. 10.20 (<5 mmHg) AO VTI 41.12 (18-25 cm) KAT (VTI) 0.89 (2.5-4.5 cm2) Mitral Valve MV A Velocity 78.00 (40-130 cm/s) E/A Ratio 1.45 MV Decel. Time 107.00 (160-240 ms) MV Mean Gr. 2.50 (<2mmHg) Pulmonary Valve PV Peak Velocity 56.00 (50-150 cm/s) SD End VMAX 226.00 cm/s Tricuspid Valve TR P. Velocity 357.00 cm/s RAP Estimate 10.00 mmHg RVSP 61.10 mmHg Left Ventricle Left atrium is moderately enlarged, left ventricle is moderately dilated, severe left ventricular systolic dysfunction, estimated ejection fraction 20%, left ventricle is globally hypokinetic, grade 2 diastolic dysfunction seen with tissue Doppler evidence of raise left atrial pressure. Doppler evidence of low cardiac output state is also seen. Right Ventricle Right atrium and right ventricle moderately enlarged, contractility of the right ventricle is mildly reduced, there is a AICD lead seen in the right ventricle. Aortic Valve Aortic valve is thickened and calcified leaflets continue to display mobility, the aortic outflow velocity is mildly increased with mean gradient across aortic valve of 10 mmHg, however the valve area is calculated at 0.9 cm??? likely due to low cardiac output state. There is no significant aortic insufficiency. Mitral Valve Mitral valve leaflets are minimally thickened, there is mild mitral regurgitation. Tricuspid Valve Tricuspid valve is minimally thickened, there is severe tricuspid regurgitation, calculated right ventricular systolic pressure 61 mmHg. Pulmonic Valve Pulmonic valve is poorly visualized. Great Vessels Aortic root is normal size. Inferior vena cava is dilated without significant inspiratory collapse. Pericardium No significant pericardial effusion noted. Conclusion 1. Biatrial enlargement, dilated left ventricle, severe reduced left ventricular systolic function, estimated ejection fraction 20%, left ventricle is globally hypokinetic. Grade 2 diastolic dysfunction seen with tissue Doppler evidence of intraventricular pressure. 2. Thickened and calcified aortic valve leaflet continues to display mobility, valve area is calculated at 0.9 cm???, this is likely secondary to low cardiac output state, unlikely severe aortic stenosis. 3. Mild mitral and severe tricuspid regurg
--- NOTE | 2021-11-28 10:33 | PC.NURSE ---
Rounded on pt, cleaned and straightened room. Echo being performed at this time, no needs voiced at this time.
--- NOTE | 2021-11-28 10:44 | CA_ITS ---
FINAL REPORT TECHNIQUE: Grayscale, color Doppler and duplex Doppler ultrasound of the kidneys, aorta and renal arteries was performed. Multiple velocities were measured. CLINICAL HISTORY: hilda, CAD, Dilated cardiomyopathy with EF %20. Hypotensive FINDINGS: Aorta velocity: 45 cm/sec Right kidney: 11.7 cm. No evidence of hydronephrosis or mass. Right intrarenal RI: 0.83 Right renal artery velocity: 134 cm/sec. Right RAR (Renal artery-Aortic Ratio): 2.93 Left Kidney: 11.9 cm. No evidence of hydronephrosis or mass. Left intrarenal RI: 0.78 Left renal artery velocity: 122 cm/sec. Left RAR (Renal Artery-Aortic Ratio): 2.67 Note is made of a small to moderate amount of ascites in the right upper quadrant. IMPRESSION: No evidence of significant renal artery stenosis. Small to moderate amount of right upper quadrant ascites. CT angiogram or postcontrast MR angiogram would be more sensitive for evaluation of possible renal artery stenosis. Reviewed, Interpreted and Dictated by Jonathon Valladares III, MD Transcribed by Raza Bean Authenticated and [facility]
--- NOTE | 2021-11-28 11:39 | PC.NURSE ---
spoke with admissions to relay patient had been step down since admission.
--- NOTE | 2021-11-28 12:09 | HMH.PHAINT1 ---
Pharmacy Intervention Comments: MEDICATION RECONCILIATION COMPLETED ON PATIENT USING EXTERNAL FILL HISTORY FROM PHARMACY AND LIST FROM [facility] OFFICE. -GENA SARGENTD
--- NOTE | 2021-11-28 14:09 | PC.NURSE ---
rounded on patient. extensive teaching with patient and family over medications, side effects and cost. encouraged them to not just quit medications because of cost, to speak with md about other options. educated on the first 30 days of brilinta we give, and this nurse ensured clinic pharmacy had this order. educated on post cath wrist care. encouraged them to ring out with any other questions. warm blanket obtained for patient.
--- NOTE | 2021-11-28 14:46 | PC.NURSE ---
called cardiology office to request diet order for pt.
--- NOTE | 2021-11-28 18:05 | PC.NURSE ---
pt has had family present all shift. nad noted. lungs are clear, bowel sounds are active in all quads. no drainage or hematoma noted at cath site. pt is a/o x4 pt is a standby when ambulating. pt is compliant with asking for assistance to walking to the restroom.
[2021-11-29] VITALS: BP 107/54; PULSE 70; PULSE 71; RESP 18; TEMP 36.7; O2SAT 97
[2021-11-29 04:00] VITALS: BP 115/67; PULSE 70; RESP 16; TEMP 36.6; O2SAT 96
[2021-11-29 04:08] VITALS: BMI 23.6
--- NOTE | 2021-11-29 07:04 | EXP.HP ---
History of Present Illness *Admission Date: 11/27/21 *History of present illness: HPI narrative: This is a 81-year-old male with history of ACS status post AICD placement, CABG, currently on Eliquis, CHF, ischemic cardiomyopathy presenting with syncopal episode.? Per EMS, patient walked outside had syncopal episode around 1600, 1 hour prior to arrival.? found patient, called EMS.? On EMS arrival, patient was confused, but arousable.? Patient denies any memory of anything that happened.? EMS states the patient had epistaxis on arrival, but that resolved with pressure.? Patient was quickly brought to the [facility] for further evaluation.? On arrival, patient had period of unresponsiveness for approximately 30 to 45 seconds, but maintained a pulse and was confused shortly thereafter again. Medical Decision Narrative: This is a 81-year-old male with extensive cardiac history who is presenting with syncopal episode.? On arrival, patient normotensive, nontachycardic, alert, disoriented, has no recollection of the event.? Moving all extremities spontaneously, pupils equal and reactive to light.? Differential includes intracranial hemorrhage, cardiogenic shock, [place], PE, pneumothorax, arrhythmia, medication induced, intoxication, withdrawal, among others.? Given patient's EKG differences from most recent, cardiology consulted for evaluation.? Recommended treatment for hyperkalemia empirically with calcium gluconate 2 g, as well as 25 mill equivalent bicarb.? Patient was given these medications and repeat EKG was obtained.? Repeat EKG similar to initial without evidence of STEMI, but ventricularly paced rhythm, wide complex.? Patient has GENNA with creatinine of 2 up from 1.4 baseline, mildly uremic at 48.? BUN 4100, initial troponin 0.03.? Executive [facility] was activated per cardiology recommendations prior to rest of labs and imaging resulting.? Patient transferred to [facility] and admitted for urgent intervention.? See cardiology note for further description and characterization of patient's likely cardiogenic shock. The above as per ER documentation. left cardiac cath 11/27/2021: IMPRESSION Critical two-vessel coronary disease involving the proximal LAD and circumflex artery along with obtuse marginal artery Successful stenting the proximal to mid LAD critical disease reduced to 0% with 2 contiguous drug-eluting stents Successful stenting the proximal circumflex artery severe disease reduced to 0% followed by additional stenting into the first obtuse marginal artery reducing the critical subtotal occlusion to 0% Successful angioplasty of the second obtuse marginal artery reducing a jailed 90% stenosis to 0% Critical left ventricular dysfunction with severely elevated LVEDP and severe regional wall motion abnormality This a.m. patient denies chest pain and shortness of breath. 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 He would like to go home. He currently is eating breakfast and enjoying.. PFSH PFSH Medical History (Updated 11/28/21 @ 10:27 by No Abbasi APRN) Cholecystectomy planned Sinusitis Surgical History (Updated 11/28/21 @ 10:27 by No Abbasi APRN) History of inguinal hernia repair Hx of CABG Hx of transurethral resection of prostate Family History (Updated 11/28/21 @ 10:18 by Pepper Garcia APRN) Diabetes Coronary artery disease Stroke Social History Smoking Status: Never smoker alcohol intake: current substance use type: denies use current occupational status: retired Travel in the last 8 weeks: None Review of Systems Constitutional Constitutional: Denies frequent falls, Denies headache(s) and Reports weakness ENT Ears, Nose, Mouth, and Throat: Denies dizziness, Denies headache(s) and Denies vertigo *Cardiovascular Cardiovascular: Reports syncope *Neurologic Neurologic: Reports system reviewed and no additional complaints, exc
[2021-11-29 08:00] VITALS: BP 114/46; PULSE 70; PULSE 73; RESP 16; TEMP 36.9; O2SAT 91
--- NOTE | 2021-11-29 08:50 | EXP.ACUTE.PN ---
Subjective *Date: 11/29/21 *Time: 08:51 Interval history: The patient did not sleep that well, but is stable and ready for discharge. He had an eco yesterday that showed EF=20% which is c/w past history. Apparently it was done AFTER the cath. Will need outpatient follow-up cath. Entresto has not been initiated. BTW:I did see and examine the patient yesterday 11/28/21, but at this time it seems that addendums to notes are not possible through the revised Expanse System. Medical Exam Vital signs and Labs for Last 24 Hours: Temp Pulse Resp BP Pulse Ox 98.4 F 70 16 114/46 L 91 L 11/29/21 08:00 11/29/21 08:00 11/29/21 08:00 11/29/21 08:00 11/29/21 08:00 I & O for Labs for Last 24 Hours: Intake & Output 11/26/21 11/27/21 11/28/21 11/29/21 11:59 11:59 11:59 11:59 Intake Total 480 / 480 480 / 480 Output Total 1974 / 1974 1300 / 1300 Balance -1495 / -1495 -820 / -820 Weight 150 lb 8 oz 155 lb 11.2 oz Head: normocephalic ENT: mucous membranes moist Neck: normal inspection Respiratory: decreased breath sounds and rales (fibrotic basilar) Cardiac: Reg Rate and Rhythm (paced) GI: soft and tenderness Extremities: edema (controlled with support stockings) Skin: intact Neuro: Grossly Intact Assessment and Plan *Assessment and plan (1) Syncope: Status: Acute Qualifiers: Syncope type: unspecified Qualified Code(s): R55 - Syncope and collapse Category: Medical Code(s): R55 - Syncope and collapse (2) Systolic CHF with reduced left ventricular function, NYHA class 3: Status: Chronic Category: Medical Code(s): I50.20 - Unspecified systolic (congestive) heart failure (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 Status: Chronic Category: Medical Code(s): R60.0 - Localized edema (5) History of coronary artery bypass graft: Status: Chronic Category: Surgical Code(s): Z95.1 - Presence of aortocoronary bypass graft (6) Presence of combination internal cardiac defibrillator (ICD) and pacemaker: Status: Chronic Category: Medical Code(s): Z95.810 - Presence of automatic (implantable) cardiac defibrillator (7) Ischemic cardiomyopathy: Status: Chronic Category: Medical Code(s): I25.5 - Ischemic cardiomyopathy (8) Status post left heart catheterization: Status: Acute Category: Medical Code(s): Z98.890 - Other specified postprocedural states (9) Stented coronary artery: Status: Acute Category: Surgical Code(s): Z95.5 - Presence of coronary angioplasty implant and graft Plan Cardiology following; documented plan as below: PLAN 1. Supportive care which should include dual antiplatelet therapy 2. Avoidance of IV fluids due to GENNA and cardiogenic shock 3. Brilinta 90 twice daily plus aspirin 81 mg daily 4. Supportive care 5. Depending on the results of the creatinine tomorrow it would be reasonable to start patient on Entresto while carefully monitoring creatinine levels 6. Recommend renal duplex to evaluate for renal artery stenosis 7. Echocardiogram in the morning 8. Low-dose beta-blockers once hemodynamically stable 9. Gentle diuresis due to critically elevated LVEDP.? I do anticipate the EDP will improve now that patient has been revascularized and LV dysfunction should hopefully improved from acute stenting 10. LDL less than 55 to be achieved with high intensity statin Has FU appt with Dr. Lowry 12/01/2021 Assessment and plan all Dx Plan of Treatment: Discharge today, appt next week in [place].
--- NOTE | 2021-11-29 09:32 | PC.NURSE ---
notified lab that CMP was entered @ 9am. Cardiology waiting for Cr results before making med adjustments so that PCP can discharge home.
[2021-11-29 10:14] LABS: Chloride 96 mmol/L (98-107); Potassium 3.8 mmoL/L (3.5-5.1); Sodium 135 mmol/L (136-145)
[2021-11-29 10:16] LABS: Alanine Aminotransferase 29 U/L (12-78); Aspartate Amino Transferase 56 U/L (17-59); Blood Urea Nitrogen 47 mg/dl (9-20); Creatinine Clearance Estimated 31 mL/min (50-200); Estimated Glomerular Filt Rate 36 ml/min (>60); GFR (African American) 44 ML/MIN (>60)
[2021-11-29 10:17] LABS: Albumin Level 4.1 g/dl (3.5-5.0); Albumin/Globulin Ratio 1.1 (1.1-1.8); Alkaline Phosphatase 157 U/L (38-126); Anion Gap 13.8 mEq/L (5-15); Bilirubin,Total 2.4 mg/dl (0.2-1.3); Calcium 9.9 mg/dl (8.4-10.2); Carbon Dioxide 29 mmol/L (22.0-30.0); Globulin 3.8 g/dL (1.3-3.2); Glucose 133 mg/dl (74-100); Total Protein,Serum 7.9 g/dl (6.3-8.2)
--- NOTE | 2021-11-29 10:28 | EXP.CARD.PN ---
Subjective Subjective Date: 11/29/21 Time: 08:00 Principal diagnosis: stemi Interval history: Doing well, denies chest pain or soa. Creatinine has improved to 1.80. BP 114/46, pulse 70 Exam Data for Last 24 hours Vital signs and Labs for Last 24 Hours: Temp Pulse Resp BP Pulse Ox 98.4 F 70 16 114/46 L 91 L 11/29/21 08:00 11/29/21 08:00 11/29/21 08:00 11/29/21 08:00 11/29/21 08:00 Laboratory Results - last 24 hr 11/29/21 : Sodium 135 L, Potassium 3.8, Chloride 96 L, Carbon Dioxide 29, Anion Gap 13.8, BUN 47 H, Creatinine 1.80 H, Estimated Creat Clear 31, Estimated GFR 36 L, Est GFR ( Amer) 44 L, Glucose 133 H, Calcium 9.9, Total Bilirubin 2.4 H, AST 56, ALT 29, Alkaline Phosphatase 157 H, Total Protein 7.9, Albumin 4.1, Globulin 3.8 H, Albumin/Globulin Ratio 1.1 I & O for Last 24 hours: Intake & Output 11/26/21 11/27/21 11/28/21 11/29/21 23:59 23:59 23:59 23:59 Intake Total 720 / 720 240 / 240 Output Total 525 / 525 2150 / 2150 600 / 600 Balance -525 / -525 -1430 / -1430 -360 / -360 Weight 153 lb 5 oz 150 lb 8 oz 155 lb 11.2 oz Constitutional Constitutional: no acute distress *Routine Respiratory Exam Respiratory: Present CTA bilaterally and symmetric chest movement *Routine Cardiovascular Exam Cardiovascular: Present RRR, Normal S1 and Normal S2 *Routine Abdominal Exam Abdominal: Present soft and normoactive bowel sounds; Absent tenderness *Routine Extremities Exam Extremities: Present full ROM and normal capillary refill; Absent edema *Routine Skin Exam Skin: Present intact, dry and warm Detailed Neck Exam: Thyroids Thyroid: Absent bruit Progress Note: A&P Assessment and plan (1) Syncope: Status: Acute (2) Systolic CHF with reduced left ventricular function, NYHA class 3: Status: Chronic (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 Status: Chronic (5) History of coronary artery bypass graft: Status: Chronic (6) Presence of combination internal cardiac defibrillator (ICD) and pacemaker: Status: Chronic (7) Ischemic cardiomyopathy: Status: Chronic (8) Status post left heart catheterization: Status: Acute (9) Stented coronary artery: Status: Acute Assessment and Plan Assessment and Plan for All Diagnoses:: CAD s/p stenting and CABG -Continue Aspirin 81mg QD, Brilinta 90mg BID, Crestor 40mg QD. BP too low for BB at this time. Cardiogenic Shock-resolved -Currently stable. BP 104/66, heart rate 70. No fluids due to Elevated LVEDP 11/29- BP improved to 114/46. Chronic systolic heart failure NYHA III-IV -Per Dr. Kapadia patient needs BiVentricular AICD (LVEF is 15, QRs 235). I spoke with Dr. Ochoa's EP professional benefits sales consultant, patient currently has Biot[employer] Dual Chamber AICD. He has follow up with Dr. Ochoa on Dec 01 to discuss upgrade. -BP too low for arb/arni/BB/diuretics at this time. -Echo at [facility] December 2020 EF 20%. During [facility] EF 15 percent. Repeat echo today 11/28/2021 EF 20, global hypokinsis, mild to mod MR. 11/29- With improvement of BP and creatinine can start arni, bb, and diuretics. Severely Elevated LVEDP -LVEDP 50 -Lasix and aldactone PAF -Vpaced currently -Continue eliquis at lower renal adjusted dose 2.5mg BID GENNA -Creatinine up to 2.10 today, avoid nephrotoxic agents -Renal artery ultrasound negative. 11/29- Improved to 1.80 CV stable for dc home. Please have patient follow up with Dr. Ochoa for discussion of upgrade to biventricular AICD. Has appointment with him Dec 01. Continue cardiac meds as below. Needs follow up with our office in 2 weeks. We will add aldactone at that time based on labs. CMP prior to follow up. Aspirin 81mg QD Brilinta 90mg BID atorvastatin 40mg QD Eliquis 2.5mg BID Lasix 40 QD Entresto BID-Hold for systolic < 110 Coreg 3.125 BID
--- NOTE | 2021-11-29 10:34 | HMH.PHACL ---
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 PATIENT VERBALIZED UNDERSTANDING AND HAD NO QUESTIONS AT THIS TIME. -LILY GARCIA, PHARMD
--- NOTE | 2021-11-29 12:14 | PC.NURSE ---
arrived to take pt home
--- NOTE | 2021-11-29 20:12 | EXP.DC.SUM ---
General Admission date:: 11/27/21 Discharge date: 11/29/21 HPI HPI HPI: This is a 81-year-old male with history of ACS status post AICD placement, CABG, currently on Eliquis, CHF, ischemic cardiomyopathy presenting with syncopal episode.? Per EMS, patient walked outside had syncopal episode around 1600, 1 hour prior to arrival.? found patient, called EMS.? On EMS arrival, patient was confused, but arousable.? Patient denies any memory of anything that happened.? EMS states the patient had epistaxis on arrival, but that resolved with pressure.? Patient was quickly brought to the [facility] for further evaluation.? On arrival, patient had period of unresponsiveness for approximately 30 to 45 seconds, but maintained a pulse and was confused shortly thereafter again. Medical Decision Narrative: This is a 81-year-old male with extensive cardiac history who is presenting with syncopal episode.? On arrival, patient normotensive, nontachycardic, alert, disoriented, has no recollection of the event.? Moving all extremities spontaneously, pupils equal and reactive to light.? Differential includes intracranial hemorrhage, cardiogenic shock, MS, PE, pneumothorax, arrhythmia, medication induced, intoxication, withdrawal, among others.? Given patient's EKG differences from most recent, cardiology consulted for evaluation.? Recommended treatment for hyperkalemia empirically with calcium gluconate 2 g, as well as 25 mill equivalent bicarb.? Patient was given these medications and repeat EKG was obtained.? Repeat EKG similar to initial without evidence of STEMI, but ventricularly paced rhythm, wide complex.? Patient has GENNA with creatinine of 2 up from 1.4 baseline, mildly uremic at 48.? BUN 4100, initial troponin 0.03.? Avionics Electronics Technician was activated per cardiology recommendations prior to rest of labs and imaging resulting.? Patient transferred to Avionics Electronics Technician and admitted for urgent intervention.? See cardiology note for further description and characterization of patient's likely cardiogenic shock. The above as per ER documentation. left cardiac cath 11/27/2021: IMPRESSION Critical two-vessel coronary disease involving the proximal LAD and circumflex artery along with obtuse marginal artery Successful stenting the proximal to mid LAD critical disease reduced to 0% with 2 contiguous drug-eluting stents Successful stenting the proximal circumflex artery severe disease reduced to 0% followed by additional stenting into the first obtuse marginal artery reducing the critical subtotal occlusion to 0% Successful angioplasty of the second obtuse marginal artery reducing a jailed 90% stenosis to 0% Critical left ventricular dysfunction with severely elevated LVEDP and severe regional wall motion abnormality In the a.m. patient denied chest pain and shortness of breath.? 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 He would like to go home.? He currently was eating breakfast and enjoying.. Hospital Course Hospital Course Hospital Course: Patient was taken directly to the Avionics Electronics Technician from the emergency room where he received stenting to the LAD and circumflex with angioplasty to the second obtuse marginal artery. Ejection fraction was noted to be 50%; left ventricular end-diastolic pressure was severely elevated at 50. Patient was noted to have a Biot[employer] dual-chamber AICD in place. CT of the head was negative for acute process. CARDIOLOGY PLAN FOLLOWS: 1. Supportive care which should include dual antiplatelet therapy 2. Avoidance of IV fluids due to GENNA and cardiogenic shock 3. Brilinta 90 twice daily plus aspirin 81 mg daily 4. Supportive care 5. Depending on the results of the creatinine tomorrow it would be reasonable to start patient on Entresto while carefully monitoring creatinine levels 6. Recommend renal duplex to evaluate for renal artery stenosis 7. Echocardiogram in the morning 8. Low-dose beta-blockers once hemodynamically stable 9. Gentle d
--- NOTE | 2021-11-30 13:25 | CARE MANAGER ---
Contacted patient related to hospital discharge. 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 He denies any questions or concerns. LM Olson
== END 2021-11-29 12:32 | disposition home or self-care (01) | DRG 246 ==
LOC: ER 18:22 → CATHLAB 18:26 → 2ND 18:32
PROVIDERS: Nurse Practitioner; Admitting Provider Family Medicine; Emergency Provider Emergency Medicine; PCP Family Medicine; Referring Provider Internal Medicine; Visit Provider Family Medicine
PROC: 027237Z Dilation of Coronary Artery, Three Arteries with Four or More Drug-eluting Intraluminal Devices, Percutaneous Approach (ICD-10-PCS; principal; 2021-11-27 18:40)
DX: I21.3 ST elevation (STEMI) myocardial infarction of unspecified site (principal); R57.0 Cardiogenic shock; I50.22 Chronic systolic (congestive) heart failure; N17.9 Acute kidney failure, unspecified; I25.10 Atherosclerotic heart disease of native coronary artery without angina pectoris; Z95.810 Presence of automatic (implantable) cardiac defibrillator; I25.5 Ischemic cardiomyopathy; Z95.1 Presence of aortocoronary bypass graft; Z79.01 Long term (current) use of anticoagulants; I48.0 Paroxysmal atrial fibrillation; Z95.5 Presence of coronary angioplasty implant and graft; Z79.899 Other long term (current) drug therapy; I34.0 Nonrheumatic mitral (valve) insufficiency
CPT/HCPCS: 36415; 70450; 71045; 72125; 80048; 80053; 83880; 84484; 85025; 85347; 92920; 92928; 92929; 92941; 93005; 93306; 93458; 93976; 99152; 99153; 99285; C1725; C1769; C1874; C1876; C9600; C9601; C9606; C9803; J1644; J2405; Q9967; U0003; U0005

== ENCOUNTER → 2021-12-05 07:29 | Outpatient (CLI) | payer MEDICARE, BC, SELFPAY ==
[2021-12-05 20:39] LABS: Alanine Aminotransferase 22 U/L (12-78); Albumin Level 3.4 g/dl (3.5-5.0); Alkaline Phosphatase 160 U/L (38-126); Anion Gap 8.9 mEq/L (5-15); Aspartate Amino Transferase 42 U/L (17-59); Bilirubin,Total 1.8 mg/dl (0.2-1.3); Blood Urea Nitrogen 26 mg/dl (9-20); Calcium 8.8 mg/dl (8.4-10.2); Carbon Dioxide 32 mmol/L (22.0-30.0); Chloride 94 mmol/L (98-107); Estimated Glomerular Filt Rate 58 ml/min (>60); GFR (African American) 70 ML/MIN (>60); Globulin 3.4 g/dL (1.3-3.2); Glucose 109 mg/dl (74-100); Potassium 3.9 mmoL/L (3.5-5.1); Sodium 131 mmol/L (136-145); Total Protein,Serum 6.8 g/dl (6.3-8.2)
[2021-12-05 20:41] LABS: Basophils % 0.5 % (0.1-2.0); Eosinophils # 0.1 K/mm3 (0.0-0.4); Eosinophils % 1.4 % (0.1-12.0); Hematocrit 29.7 % (42.0-52.0); Hemoglobin 9.3 g/dL (14.1-18.0); Lymphocytes # 1.1 K/mm3 (0.7-4.5); Mean Corpuscular HGB Conc 31.4 g/dL (31.8-35.4); Mean Corpuscular Hemoglobin 27.2 pg (27.0-31.2); Mean Corpuscular Volume 86.9 fl (80-94); Mean Platelet Volume 9.1 fl (7.4-10.4); Monocytes # 0.6 K/mm3 (0.1-1.0); Monocytes % 9.4 % (1.7-9.3); Neutrophils # 4.7 K/mm3 (1.8-7.8); Neutrophils % 71.7 % (37.0-80.0); Platelet Count 287 K/mm3 (142-424); Red Blood Count 3.42 M/mm3 (4.60-6.20); White Blood Count 6.5 K/mm3 (4.8-10.8)
== END ==
PROVIDERS: PCP Family Medicine; Visit Provider Family Medicine
DX: I50.20 Unspecified systolic (congestive) heart failure (principal)
CPT/HCPCS: 80053; 85025

== ENCOUNTER 2021-12-18 15:15 | Inpatient (IN) | payer MEDICARE, BC, SELFPAY ==
[2021-12-18] VITALS (25 sets, daily range): BP systolic 79–154; BP diastolic 42–69; PULSE 69–80; RESP 15–20; TEMP 36.7–37.1; O2SAT 95–100; BMI 22.4
[2021-12-18 14:18] LABS: Chloride 89 mmol/L (98-107); Potassium 4.5 mmoL/L (3.5-5.1); Sodium 127 mmol/L (136-145)
[2021-12-18 14:21] LABS: Alanine Aminotransferase 22 U/L (12-78); Albumin Level 3.5 g/dl (3.5-5.0); Alkaline Phosphatase 135 U/L (38-126); Anion Gap 18.5 mEq/L (5-15); Aspartate Amino Transferase 43 U/L (17-59); Bilirubin,Direct 0.9 mg/dl (0.0-0.4); Bilirubin,Indirect 0.5 mg/dL (0.0-0.9); Bilirubin,Total 1.4 mg/dl (0.2-1.3); Bilirubin,Unconjugated 0.5 mg/dL (0.0-1.1); Blood Urea Nitrogen 70 mg/dl (9-20); Calcium 8.9 mg/dl (8.4-10.2); Carbon Dioxide 24 mmol/L (22.0-30.0); Estimated Glomerular Filt Rate 39 ml/min (>60); GFR (African American) 47 ML/MIN (>60); Glucose 112 mg/dl (74-100); Total Protein,Serum 6.8 g/dl (6.3-8.2)
[2021-12-18 14:22] LABS: Magnesium 1.9 mg/dl (1.6-2.3)
[2021-12-18 14:28] LABS: Basophils % 0.3 % (0.1-2.0); Eosinophils % 0.2 % (0.1-12.0); Lymphocytes # 1.1 K/mm3 (0.7-4.5); Lymphocytes % 15.7 % (10-50); Mean Corpuscular HGB Conc 32.1 g/dL (31.8-35.4); Mean Corpuscular Hemoglobin 27.9 pg (27.0-31.2); Mean Corpuscular Volume 86.8 fl (80-94); Mean Platelet Volume 9.2 fl (7.4-10.4); Monocytes # 0.4 K/mm3 (0.1-1.0); Monocytes % 5.7 % (1.7-9.3); Neutrophils # 5.3 K/mm3 (1.8-7.8); Neutrophils % 78.1 % (37.0-80.0); Platelet Count 268 K/mm3 (142-424); Red Blood Count 2.25 M/mm3 (4.60-6.20); Red Cell Distribution Width 17.9 % (11.5-17.5); White Blood Count 6.7 K/mm3 (4.8-10.8)
[2021-12-18 14:54] LABS: Hemoglobin 6.3 g/dL (14.1-18.0)
[2021-12-18 14:55] LABS: Hematocrit 19.5 % (42.0-52.0)
--- NOTE | 2021-12-18 15:27 | PC.NURSE ---
patient arrived to floor from admissions in wheelchair
[2021-12-18 15:51] LABS: Coronavirus 19, PCR Not Detected (NotDetected); Influenza A, PCR Not Detected (NotDetected); Influenza B, PCR Not Detected (NotDetected)
--- NOTE | 2021-12-18 15:54 | XR_ITS ---
FINAL REPORT CLINICAL HISTORY: sob COMPARISON: November 27, 2021 FINDINGS: Moderate cardiomegaly is noted. There is a left subclavian pacemaker. There has been prior median sternotomy. There is patchy airspace opacity in the right lung base. There is abnormal pleural thickening in the inferior portions of the bilateral hemant thoraces. IMPRESSION: No change in patchy right lung base opacity and abnormal pleural thickening in the inferior bilateral hemant thoraces. Reviewed, Interpreted and Dictated by Dane Quinn MD Transcribed by Raza Bean Authenticated and . [facility]
--- NOTE | 2021-12-18 16:01 | EXP.CARD.PN ---
Subjective Subjective Date: 12/18/21 Time: 16:01 Principal diagnosis: anemia Exam Data for Last 24 hours Vital signs and Labs for Last 24 Hours: Temp Pulse Resp BP Pulse Ox 98.1 F 70 20 100/55 L 95 12/18/21 15:56 12/18/21 15:56 12/18/21 15:56 12/18/21 15:56 12/18/21 15:56 Laboratory Results - last 24 hr 12/18/21 13:43: WBC 6.7, RBC 2.25 L, Hgb 6.3 L*, Hct 19.5 L*, MCV 86.8, MCH 27.9, MCHC 32.1, RDW 17.9 H, Plt Count 268, MPV 9.2, Neut % (Auto) 78.1, Lymph % (Auto) 15.7, Woods % (Auto) 5.7, Eos % (Auto) 0.2, Baso % (Auto) 0.3, Neut # (Auto) 5.3, Lymph # (Auto) 1.1, Woods # (Auto) 0.4, Eos # (Auto) 0.0, Baso # (Auto) 0.0 12/18/21 13:43: Sodium 127 L, Potassium 4.5, Chloride 89 L, Carbon Dioxide 24, Anion Gap 18.5 H, BUN 70 H, Creatinine 1.70 H, Estimated GFR 39 L, Est GFR ( Amer) 47 L, Glucose 112 H, Calcium 8.9, Magnesium 1.9, Total Bilirubin 1.4 H, Direct Bilirubin 0.9 H, Conjugated Bilirubin 0.0, Indirect Bilirubin 0.5, Unconjugated Bilirubin 0.5, AST 43, ALT 22, Alkaline Phosphatase 135 H, Total Protein 6.8, Albumin 3.5 I & O for Last 24 hours: Intake & Output 12/16/21 12/17/21 12/18/21 12/19/21 11:59 11:59 11:59 11:59 Output Total 0 / 0 Balance 0 / 0 Weight 147 lb 5 oz Progress Note: A&P Assessment and plan (1) Bloody stools: Status: Acute (2) Anemia: Status: Acute (3) Dyspnea: Status: Acute (4) Jaundice: Status: Acute (5) Pale: Status: Acute (6) CAD (coronary artery disease): Status: Acute (7) Chronic systolic heart failure: Status: Acute (8) AICD (automatic cardioverter/defibrillator) present: Status: Acute (9) Elevated left ventricular end-diastolic pressure (LVEDP): Status: Acute (10) Hyperlipidemia: Status: Acute (11) Hypertension: Status: Acute (12) Ischemic cardiomyopathy: Status: Chronic (13) Presence of combination internal cardiac defibrillator (ICD) and pacemaker: Status: Chronic Assessment and Plan Assessment and Plan for All Diagnoses:: Patient here for sob Denies cp & pressure Has had excessive sweating Bowels not moving good SOB with activity & when laying down Dizziness & lightheadedness when laying down Swelling stomach, feet & legs Denies numbness Fatigue-all he wants to do is sleep Lack of energy CAD is present and likely stable. ROXY to LAD, circ, and first OM, severely elevated LVEDP. Hx of CABG. DAPT with ASA and Brilinta. BP low. Patient weight up 11 lbs A-fib is pacing.A/C with Eliquis. AICD in place and followed by Dr. Evans, he recently saw him last Saturday (12.01.21) and he did not discuss the upgrade of the device with the patient. Will leave this up to Violeta. Chronic systolic heart failure NYHA class II is stable, EF 20% LDL goal is < 55, LDL is not on file. Pale,jaundice, states he is having black stools, dyspnea. PLAN: BMP/CBC/Thyroid profile/Liver Lipid Profile Stop Lasix Start Torsemide 40 mg daily Stop Eliquis Addendum: Hgb 6.3 Hct 19.5 Cr 1.7 Na+ 127 Will admit the patient to the hospital for anemia and CHF. Discussed admission with Ryley who is agreeable in admitting pt. Will type and cross 4 units PRBCs. Transfuse 3 units. 1 unit on hold. Milrinone drip at 0.125 Lasix 40 mg IV BID. IV PPI CXR Occult stool studies and iron studies. RTC in 1 week from admission
[2021-12-18 16:12] LABS: Reticulocyte % (Auto) 6.2 % (0.9-3.2)
--- NOTE | 2021-12-18 16:19 | EXP.HP ---
History of Present Illness *Admission Date: 12/18/21 *Reason for visit:: Anemia; shortness of breath. *History of present illness: Mr. Galaviz is an 81-year-old male patient with an extensive cardiac history to include a massive heart attack in 2000 cardiac bypass surgery x2, pacemaker with defibrillator, recent admission to [facility] with cardiac cath on 11/27/2021 with placement of several stents with angioplasty, chronic systolic heart failure, ischemic cardiomyopathy, who presented to the office of Dr. Kapadia, contestant coordinator, with progressive shortness of breath and leg edema and stomach swelling. He denies shortness of breath. He reported having black stools, nausea but no vomiting. He has not been eating or drinking well. He started wearing his PAULINE hose again today after being off for about 3 to 4 days. He has had a decreased in urinary output at home. He also describes along with his increasing shortness of breath, dizziness, sweating, fatigue and wanting to sleep all the time with no energy. With exam in the office of Dr. Kapadia he was found to have had an 11 pound weight gain. Blood pressure was 90/46. O2 sats were 100% on room air. He had lab work done which showed hemoglobin of 6.3 and hematocrit of 19.5, creatinine was 1.7 and sodium was low at 127. Thus he was directly admitted to the services of Dr. Hedrick for administration of blood and diuresis. Cardiology will continue to follow. 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 Myocardial Infarction PAF (paroxysmal atrial fibrillation) Sinusitis Syncope Surgical History AICD (automatic cardioverter/defibrillator) present History of inguinal hernia repair Hx of CABG Hx of transurethral resection of prostate Family History Other Coronary artery disease Diabetes Stroke Social History Smoking Status: Never smoker alcohol intake: current substance use type: denies use current occupational status: retired Travel in the last 8 weeks: None Review of Systems Constitutional Constitutional: Reports excessive sweating, Reports fatigue, Denies frequent falls, Denies headache(s), Reports poor appetite, Reports lethargy, Reports weakness and Reports weight gain Eyes Eyes: Reports change in vision ENT Ears, Nose, Mouth, and Throat: Reports dizziness, Denies otalgia, Denies headache(s) and Denies sore throat *Cardiovascular Cardiovascular: Denies chest pain, Reports dyspnea, Reports leg edema, Reports lightheadedness, Reports orthopnea and Denies syncope *Respiratory Respiratory: Reports cough, Reports dyspnea and Denies hemoptysis *Gastrointestinal Gastrointestinal: Denies abdominal pain, Denies dyspepsia, Denies hematemesis, Denies hematochezia, Reports melena, Reports nausea and Denies vomiting *Genitourinary Genitourinary: Denies difficulty urinating *Musculoskeletal Musculoskeletal: Denies abnormal gait and Reports muscle weakness *Neurologic Neurologic: Denies abnormal gait, Denies abnormal speech, Denies convulsions, Reports dizziness, Denies frequent falls, Denies headache(s), Denies syncope and Reports weakness Endocrine Endocrine: Reports excessive sweating and Reports fatigue Meds Home Medications and Allergies Home Medications Medication Instructions Recorded Confirmed Type aspirin 81 mg tablet,delayed 81 mg PO DAILY HEART HEALTH 10/18/21 12/18/21 History release atorvastatin 40 mg tablet 40 mg PO DAILY #30 tabs 11/29/21 12/18/21 Rx carvedilol 3.125 mg tablet 3.125 mg PO BID #60 tabs 11/29/21 12/18/21 Rx
[2021-12-18 18:30] LABS: Iron 25 ug/dL (49-181)
[2021-12-18 18:39] LABS: Total Iron Binding Capacity 318 ug/dL (261-462)
[2021-12-18 19:06] LABS: Ferritin 32.7 ng/ml (17.9-464)
[2021-12-18 19:40] LABS: Vitamin B12 773 pg/mL (239-931)
[2021-12-18 20:21] LABS: Folate > 20.00 ng/mL
[2021-12-19] VITALS (31 sets, daily range): BP systolic 79–101; BP diastolic 36–58; PULSE 68–76; RESP 16–22; TEMP 36.3–37.1; O2SAT 94–98; BMI 23.8; BMI 23.7
[2021-12-19 03:29] LABS: Basophils % 0.3 % (0.1-2.0); Eosinophils # 0.1 K/mm3 (0.0-0.4); Eosinophils % 1.5 % (0.1-12.0); Hematocrit 26.7 % (42.0-52.0); Lymphocytes % 12.4 % (10-50); Mean Corpuscular HGB Conc 33.1 g/dL (31.8-35.4); Mean Corpuscular Hemoglobin 29.3 pg (27.0-31.2); Mean Corpuscular Volume 88.3 fl (80-94); Mean Platelet Volume 8.9 fl (7.4-10.4); Monocytes # 0.8 K/mm3 (0.1-1.0); Monocytes % 9.5 % (1.7-9.3); Neutrophils # 6.2 K/mm3 (1.8-7.8); Neutrophils % 76.3 % (37.0-80.0); Platelet Count 224 K/mm3 (142-424); Red Blood Count 3.02 M/mm3 (4.60-6.20); Red Cell Distribution Width 16.7 % (11.5-17.5); White Blood Count 8.1 K/mm3 (4.8-10.8)
[2021-12-19 03:35] LABS: Chloride 91 mmol/L (98-107); Sodium 126 mmol/L (136-145)
[2021-12-19 03:36] LABS: Hemoglobin 8.8 g/dL (14.1-18.0)
[2021-12-19 03:38] LABS: Blood Urea Nitrogen 71 mg/dl (9-20); Calcium 8.4 mg/dl (8.4-10.2); Carbon Dioxide 23 mmol/L (22.0-30.0); Chol/HDL Ratio 5.1 (1-3.5); Cholesterol 76 mg/dl (140-200); Creatinine Clearance Estimated 31 mL/min (50-200); Estimated Glomerular Filt Rate 39 ml/min (>60); GFR (African American) 47 ML/MIN (>60); Glucose 99 mg/dl (74-100); HDL Cholesterol 15 mg/dl (40-60); Triglycerides 65 mg/dl (30-150); VLDL Cholesterol 13 mg/dL (0-40)
[2021-12-19 03:48] LABS: Direct LDL Cholesterol 46.36 mg/dL (100-129)
--- NOTE | 2021-12-19 07:55 | EXP.PHA.VTE ---
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) CAD (coronary artery disease) (Acute) Chronic systolic heart failure (Acute) AICD (automatic cardioverter/defibrillator) present (Acute) Elevated left ventricular end-diastolic pressure (LVEDP) (Acute) Hyperlipidemia (Acute) Hypertension (Acute) Stented coronary artery (Acute) Status post left heart catheterization (Acute) History of coronary artery bypass graft (Chronic) Presence of combination internal cardiac defibrillator (ICD) and pacemaker (Chronic) Ischemic cardiomyopathy (Chronic) VTE Risk Labs: VTE Related Lab Results Hgb 8.8 g/dL (14.1-18.0) L D 12/19/21 03:25 Hct 26.7 % (42.0-52.0) L 12/19/21 03:25 Plt Count 224 K/mm3 (142-424) 12/19/21 03:25 BUN 71 mg/dl (9-20) H 12/19/21 03:25 Creatinine 1.70 mg/dl (0.66-1.25) H 12/19/21 03:25 Estimated Creat Clear 31 mL/min (50-200) 12/19/21 03:25 Was VTE Risk Assessment Performed: Yes VTE Score: 5 VTE Risk Level: Low Risk Prophylaxis VTE Prophylaxis Ordered?: Yes Types of VTE Prophylaxis: TEDS Knee High Location of Applied Device: Bilateral Lower Extremeties
--- NOTE | 2021-12-19 08:46 | EXP.PN ---
Subjective *Date: 12/20/21 *Time: 16:22 Interval history: Patient states he is feeling somewhat better this morning. He has less dizziness and shortness of breath. He has walked to the bathroom and tolerated the ambulation better. He did have a stool this morning and color was black. He denies chest pain. He did sleep a little bit at intervals between nursing checks while receiving 3 units of packed red blood cells. Hemoglobin this morning is 8.8 with a hematocrit of 26.7. Blood chemistries show sodium of 126 with a potassium of 4. BUN is 71 with a creatinine of 1.7. Iron is low at 25. Chest x-ray yesterday showed no change in patchy right lung base opacity and abnormal pleural thickening in the inferior bilateral hemothoraces. Patient remains on milrinone drip. Systolic blood pressure is in the 80s and low 90s. Exam Data for Last 24 hours Vital signs and Labs for Last 24 Hours: Temp Pulse Resp BP Pulse Ox 97.9 F 70 18 80/54 L 96 12/19/21 04:00 12/19/21 06:00 12/19/21 06:00 12/19/21 06:00 12/19/21 06:00 Laboratory Results - last 24 hr 12/18/21 13:43: WBC 6.7, RBC 2.25 L, Hgb 6.3 L*, Hct 19.5 L*, MCV 86.8, MCH 27.9, MCHC 32.1, RDW 17.9 H, Plt Count 268, MPV 9.2, Neut % (Auto) 78.1, Lymph % (Auto) 15.7, [place] % (Auto) 5.7, Eos % (Auto) 0.2, Baso % (Auto) 0.3, Neut # (Auto) 5.3, Lymph # (Auto) 1.1, [place] # (Auto) 0.4, Eos # (Auto) 0.0, Baso # (Auto) 0.0 12/18/21 13:43: Sodium 127 L, Potassium 4.5, Chloride 89 L, Carbon Dioxide 24, Anion Gap 18.5 H, BUN 70 H, Creatinine 1.70 H, Estimated GFR 39 L, Est GFR ( Amer) 47 L, Glucose 112 H, Calcium 8.9, Magnesium 1.9, Total Bilirubin 1.4 H, Direct Bilirubin 0.9 H, Conjugated Bilirubin 0.0, Indirect Bilirubin 0.5, Unconjugated Bilirubin 0.5, AST 43, ALT 22, Alkaline Phosphatase 135 H, Total Protein 6.8, Albumin 3.5 12/18/21 13:48: Blood Type Confirm O Positive 12/18/21 15:45: SARS-CoV-2 (PCR) Not detected, Influenza A Untype (PCR) Not detected, Influenza Type B (PCR) Not detected 12/18/21 16:05: Retic Count (auto) 6.2 H 12/18/21 16:05: Iron 25 L, TIBC 318, Iron Saturation 7.82820 L, Ferritin 32.7, Vitamin B12 773, Folate > 20.00 12/18/21 16:05: Blood Type O Positive, Antibody Screen Negative, Crossmatch (AHG) See Detail 12/19/21 03:25: Triglycerides 65, Cholesterol 76 L, LDL Cholesterol Direct 46.36 L, VLDL Cholesterol 13, HDL Cholesterol 15 L, Cholesterol/HDL Ratio 5.1 H 12/19/21 03:25: WBC 8.1, RBC 3.02 L D, Hgb 8.8 L D, Hct 26.7 L, MCV 88.3, MCH 29.3, MCHC 33.1, RDW 16.7, Plt Count 224, MPV 8.9, Neut % (Auto) 76.3, Lymph % (Auto) 12.4, [place] % (Auto) 9.5 H, Eos % (Auto) 1.5, Baso % (Auto) 0.3, Neut # (Auto) 6.2, Lymph # (Auto) 1.0, [place] # (Auto) 0.8, Eos # (Auto) 0.1, Baso # (Auto) 0.0 12/19/21 03:25: Sodium 126 L, Potassium 4.0, Chloride 91 L, Carbon Dioxide 23, Anion Gap 16.0 H, BUN 71 H, Creatinine 1.70 H, Estimated Creat Clear 31, Estimated GFR 39 L, Est GFR ( Amer) 47 L, Glucose 99, Calcium 8.4 I & O for Last 24 hours: Intake & Output 12/16/21 12/17/21 12/18/21 12/19/21 11:59 11:59 11:59 11:59 Intake Total 1368 / 1368 Output Total 1100 / 1100 Balance 268 / 268 Weight 157 lb Constitutional Constitutional: no acute distress and thin Comments: Sitting up in the bed and color is a little better this morning. *Routine Respiratory Exam Respiratory: Present crackles (Few bibasilar crackles) and diminished air movement *Routine Cardiovascular Exam Cardiovascular: Present RRR (Monitor showing paced rhythm) *Routine Abdominal Exam Abdominal: Present soft and normoactive bowel sounds Comments: Abdomen is rounded *Routine Extremities Exam Extremities: Present edema and PAULINE stockings *Routine Neurological Exam Neurological: Present alert and oriented X3 Assessment and Plan *Assessment and plan (1) Melena: Status: Acute Category: Medical Code(s): K92.1 - Melena (2) Anemia: Status: Acute Category: Medical Co
[2021-12-19 09:10] LABS: Basophils % 0.2 % (0.1-2.0); Eosinophils # 0.2 K/mm3 (0.0-0.4); Eosinophils % 1.9 % (0.1-12.0); Hematocrit 26.4 % (42.0-52.0); Hemoglobin 8.8 g/dL (14.1-18.0); Lymphocytes # 0.9 K/mm3 (0.7-4.5); Lymphocytes % 10.1 % (10-50); Mean Corpuscular HGB Conc 33.2 g/dL (31.8-35.4); Mean Corpuscular Hemoglobin 29.2 pg (27.0-31.2); Mean Corpuscular Volume 87.7 fl (80-94); Mean Platelet Volume 8.4 fl (7.4-10.4); Monocytes # 0.8 K/mm3 (0.1-1.0); Monocytes % 8.9 % (1.7-9.3); Neutrophils # 6.7 K/mm3 (1.8-7.8); Neutrophils % 78.9 % (37.0-80.0); Platelet Count 219 K/mm3 (142-424); White Blood Count 8.5 K/mm3 (4.8-10.8)
--- NOTE | 2021-12-19 09:25 | EXP.ACUTE.PN ---
Subjective *Date: 12/19/21 *Time: 09:25 Interval history: The patient received 3 units of packed red blood cells last night. He has a fourth available. He states that he feels better. On exam he does have some bibasilar rales and some leg edema. He needs some Lasix this morning and should receive the additional unit of packed red blood cells. Medical Exam Vital signs and Labs for Last 24 Hours: Temp Pulse Resp BP Pulse Ox 97.7 F 70 18 80/54 L 96 12/19/21 08:00 12/19/21 06:00 12/19/21 06:00 12/19/21 06:00 12/19/21 06:00 Laboratory Results - last 24 hr 12/18/21 13:43: WBC 6.7, RBC 2.25 L, Hgb 6.3 L*, Hct 19.5 L*, MCV 86.8, MCH 27.9, MCHC 32.1, RDW 17.9 H, Plt Count 268, MPV 9.2, Neut % (Auto) 78.1, Lymph % (Auto) 15.7, [place] % (Auto) 5.7, Eos % (Auto) 0.2, Baso % (Auto) 0.3, Neut # (Auto) 5.3, Lymph # (Auto) 1.1, [place] # (Auto) 0.4, Eos # (Auto) 0.0, Baso # (Auto) 0.0 12/18/21 13:43: Sodium 127 L, Potassium 4.5, Chloride 89 L, Carbon Dioxide 24, Anion Gap 18.5 H, BUN 70 H, Creatinine 1.70 H, Estimated GFR 39 L, Est GFR ( Amer) 47 L, Glucose 112 H, Calcium 8.9, Magnesium 1.9, Total Bilirubin 1.4 H, Direct Bilirubin 0.9 H, Conjugated Bilirubin 0.0, Indirect Bilirubin 0.5, Unconjugated Bilirubin 0.5, AST 43, ALT 22, Alkaline Phosphatase 135 H, Total Protein 6.8, Albumin 3.5 12/18/21 13:48: Blood Type Confirm O Positive 12/18/21 15:45: SARS-CoV-2 (PCR) Not detected, Influenza A Untype (PCR) Not detected, Influenza Type B (PCR) Not detected 12/18/21 16:05: Retic Count (auto) 6.2 H 12/18/21 16:05: Iron 25 L, TIBC 318, Iron Saturation 7.01821 L, Ferritin 32.7, Vitamin B12 773, Folate > 20.00 12/18/21 16:05: Blood Type O Positive, Antibody Screen Negative, Crossmatch (AHG) See Detail 12/19/21 03:25: Triglycerides 65, Cholesterol 76 L, LDL Cholesterol Direct 46.36 L, VLDL Cholesterol 13, HDL Cholesterol 15 L, Cholesterol/HDL Ratio 5.1 H 12/19/21 03:25: WBC 8.1, RBC 3.02 L D, Hgb 8.8 L D, Hct 26.7 L, MCV 88.3, MCH 29.3, MCHC 33.1, RDW 16.7, Plt Count 224, MPV 8.9, Neut % (Auto) 76.3, Lymph % (Auto) 12.4, [place] % (Auto) 9.5 H, Eos % (Auto) 1.5, Baso % (Auto) 0.3, Neut # (Auto) 6.2, Lymph # (Auto) 1.0, [place] # (Auto) 0.8, Eos # (Auto) 0.1, Baso # (Auto) 0.0 12/19/21 03:25: Sodium 126 L, Potassium 4.0, Chloride 91 L, Carbon Dioxide 23, Anion Gap 16.0 H, BUN 71 H, Creatinine 1.70 H, Estimated Creat Clear 31, Estimated GFR 39 L, Est GFR ( Amer) 47 L, Glucose 99, Calcium 8.4 12/19/21 09:02: WBC 8.5, RBC 3.00 L, Hgb 8.8 L, Hct 26.4 L, MCV 87.7, MCH 29.2, MCHC 33.2, RDW 17.0, Plt Count 219, MPV 8.4, Neut % (Auto) 78.9, Lymph % (Auto) 10.1, [place] % (Auto) 8.9, Eos % (Auto) 1.9, Baso % (Auto) 0.2, Neut # (Auto) 6.7, Lymph # (Auto) 0.9, [place] # (Auto) 0.8, Eos # (Auto) 0.2, Baso # (Auto) 0.0 I & O for Labs for Last 24 Hours: Intake & Output 12/16/21 12/17/21 12/18/21 12/19/21 11:59 11:59 11:59 11:59 Intake Total 1608 / 1608 Output Total 1100 / 1100 Balance 508 / 508 Weight 157 lb Head: Present normocephalic Neck: Present normal inspection (No JVD noted) Respiratory: Present decreased breath sounds and rales (Bibasilar); Absent respiratory distress Cardiac: Present Reg Rate and Rhythm (Pacemaker) GI: Present soft; Absent tenderness or rigidity Rectal (male): Present deferred (male): Present deferred Extremities: Present edema (2+) Skin: Present intact Neuro: Present alert, awake and oriented x 3 Assessment and Plan *Assessment and plan (1) Anemia: Status: Acute Category: Medical Code(s): D64.9 - Anemia, unspecified (2) 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
--- NOTE | 2021-12-19 10:33 | PC.NURSE ---
Addendum entered by Lena Reynolds RN 12/19/21 14:12: [id number] called office for to see if Dr Hedrick had been given message about LAsix for pt. staff states that they will call back. [phone] called office about message about lasix. per staff wants pt to have a total of 80mg lasix. Original Note: called and clarified with Dr Hedrick if he wanted the pt to have 40mg or 80mg of lasix this am. message left with office [phone]
--- NOTE | 2021-12-19 10:55 | EXP.CARD.CON ---
History of Present Illness History of Present Illness Consult date: 12/19/21 Requesting physician: Any Hedrick Chief complaint: soa, melena, weakness, abnormal labs Additional Medical History:: Past medical Hx - CAD S/p CABG and stenting - PAF on Eliquis - Chronic systolic heart failure with AICD in place. Sees Dr. Ochoa -?[facility] 11/27/2021 IMPRESSION Critical two-vessel coronary disease involving the proximal LAD and circumflex artery along with obtuse marginal artery Successful stenting the proximal to mid LAD critical disease reduced to 0% with 2 contiguous drug-eluting stents Successful stenting the proximal circumflex artery severe disease reduced to 0% followed by additional stenting into the first obtuse marginal artery reducing the critical subtotal occlusion to 0% Successful angioplasty of the second obtuse marginal artery reducing a jailed 90% stenosis to 0% Critical left ventricular dysfunction with severely elevated LVEDP and severe regional wall motion abnormality PLAN 1. Supportive care which should include dual antiplatelet therapy 2. Avoidance of IV fluids due to GENNA and cardiogenic shock 3. Brilinta 90 twice daily plus aspirin 81 mg daily 4. Supportive care 5. Depending on the results of the creatinine tomorrow it would be reasonable to start patient on Entresto while carefully monitoring creatinine levels 6. Recommend renal duplex to evaluate for renal artery stenosis 7. Echocardiogram in the morning 8. Low-dose beta-blockers once hemodynamically stable 9. Gentle diuresis due to critically elevated LVEDP.? I do anticipate the EDP will improve now that patient has been revascularized and LV dysfunction should hopefully improved from acute stenting 10. LDL less than 55 to be achieved with high intensity statin Echo 11/28/2021 Conclusion 1.? Biatrial enlargement, dilated left ventricle, severe reduced left ventricular systolic function, estimated ejection fraction 20%, left ventricle is globally hypokinetic.? Grade 2 diastolic dysfunction seen with tissue Doppler evidence of intraventricular pressure. 2.? Thickened and calcified aortic valve leaflet continues to display mobility, valve area is calculated at 0.9 cm???, this is likely secondary to low cardiac output state, unlikely severe aortic stenosis. 3.? Mild mitral and severe tricuspid regurgitation, calculated right ventricular systolic pressure is 61 mmHg. 4.? No significant pericardial effusion. 5.? Inferior vena cava is dilated without significant inspiratory collapse. History of present illness: 81 year old white male presented to Dr. Shotwells office yesterday with complaint of worsening and progressive soa, LE edema, abdominal swelling and melena. Patient was sent for labs which resulted as follows: Hgb 6.3, creatinine 1.7, sodium was 127. On presentation to office patient was hypotensive with bp 90/46. patient was directly admitted to Dr. Hedrick. Patient recieved 3 units of PRBC last night and 4th is pending. Patient reports has had melena x 3 weeks, denies abdominal pain or vomiting. Reports feeling much better today. Currently on milrinone and protonix drips. BP remains low with systolic 80s. 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
--- NOTE | 2021-12-19 12:02 | CA_ITS ---
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 2D Dimensions Aortic Root 1.91 cm M: 3.1 - 3.7 LVOT 2.00 cm (M/F) 1.5-2.5 M-Mode Dimensions RVDd 3.11 cm (0.9-2.6) LVDd 5.35 cm (3.5-5.7) LVDs 4.98 cm (3.5-5.7) IVSd 0.77 cm (0.6-1.1) PWd 0.80 cm (0.6-1.1) EF (Teich) 15.30% FS 6.90% EDV (Teich) 138.30 mL ESV (Teich) 117.10 mL LV Diastology E Decel Time 170.00 (160-240 msec) E/A Ratio 1.9 MED E' 4.70 (< 7 cm/sec) E'/MED E' Ratio 24.34 (>14) LAT E' 7.10 (<10 cm/sec) E/LAT E' Ratio 16.11 (>14) Aortic Valve LVOT Max 125.00 (70-110 cm/s) LVOT VTI 22.59 cm AoV Peak Erick. 242.00 (50-130 cm/s) AO Peak GR. 23.50 mmHg AO Mean GR. 11.60 (<5 mmHg) AO VTI 42.90 (18-25 cm) KAT (VTI) 1.65 (2.5-4.5 cm2) Mitral Valve MV E Max Erick. 114.00 (40-130 cm/s) MV A Velocity 60.00 (40-130 cm/s) E/A Ratio 1.92 MV Decel. Time 170.00 (160-240 ms) MV PHT 50.00 ms Left Ventricle Left atrium is moderately enlarged, left ventricle is moderately dilated, severe left ventricular systolic dysfunction, estimated ejection fraction 20 to 25% left ventricle is globally hypokinetic, grade 2 diastolic dysfunction seen with tissue Doppler evidence of raise left atrial pressure. Right Ventricle Right atrium and right ventricle are mildly enlarged with normal contractility, AICD lead seen in the right ventricle. Aortic Valve Aortic valve is thickened and calcified leaflets display mobility, the maximum aortic outflow velocity study 2.7 m/s, resulting in a mean gradient across aortic valve is 14 mmHg, valve area is calculated 1.6 cm, represents mild aortic stenosis. There is no significant aortic insufficiency seen. Mitral Valve Mitral valve has mitral calcification, there is no significant mitral inflow obstruction, there is moderate mitral regurgitation. Tricuspid Valve Tricuspid valve grossly normal, there is mild tricuspid regurgitation, tricuspid regurgitation jet velocity is inadequate for calculation of the right ventricular systolic pressure. Pulmonic Valve Pulmonic valve is poorly visualized. Great Vessels Aortic root is normal size. Inferior vena cava is poorly visualized. Pericardium No significant pericardial effusion noted. Conclusion 1. Dilated left ventricle seen with his left ventricular systolic function, estimated ejection fraction 20-25% left ventricle is globally hypokinetic, grade 2 diastolic dysfunction seen with tissue Doppler evidence of raise left atrial pressure. 2. Thickened and calcified aortic valve, the aortic valve area calculated in the study is 1.6 cm 5 which represents mild aortic stenosis, previously reported aortic valve 8.9 cm??? is likely secondary to low-flow low gradient pseudo aortic stenosis. Aortic valve is thickened and calcified leaflet continue to display mobility. 3. Moderate mitral and mild tricuspid regurgitation. 4. No significant pericardial effusion. 5. Inferior vena cava is poorly visualized. Electronically signed by : Daniel Bryan MD 12/19/2021 18:46:31
--- NOTE | 2021-12-19 12:03 | EXP.SURG.CON ---
History of Present Illness *Admission Date: 12/18/21 *History of present illness: This is an 81-year-old gentleman seen in consultation from cardiology and primary care for possible endoscopic evaluation of gastrointestinal hemorrhage. He was admitted yesterday with a hemoglobin of 6.3. He is scheduled to have 1/4 unit of packed red blood cells. His most recent hemoglobin was 8.8 (after 3 units). He does describe intermittent melena. Below is forwarded from admission H&P: Mr. Galaviz is an 81-year-old male patient with an extensive cardiac history to include a massive heart attack in 2000 cardiac bypass surgery x2, pacemaker with defibrillator, recent admission to [facility] with cardiac cath on 11/27/2021 with placement of several stents with angioplasty, chronic systolic heart failure, ischemic cardiomyopathy, who presented to the office of Dr. Kapadia, ward clerk, with progressive shortness of breath and leg edema and stomach swelling. He denies shortness of breath. He reported having black stools, nausea but no vomiting. He has not been eating or drinking well. He started wearing his PAULINE hose again today after being off for about 3 to 4 days. He has had a decreased in urinary output at home. He also describes along with his increasing shortness of breath, dizziness, sweating, fatigue and wanting to sleep all the time with no energy. With exam in the office of Dr. Kapadia he was found to have had an 11 pound weight gain. Blood pressure was 90/46. O2 sats were 100% on room air. He had lab work done which showed hemoglobin of 6.3 and hematocrit of 19.5, creatinine was 1.7 and sodium was low at 127. Thus he was directly admitted to the services of Dr. Hedrick for administration of blood and diuresis. Cardiology will continue to follow. 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 Myocardial Infarction PAF (paroxysmal atrial fibrillation) Sinusitis Syncope Surgical History AICD (automatic cardioverter/defibrillator) present History of inguinal hernia repair Hx of CABG Hx of transurethral resection of prostate Family History Other Coronary artery disease Diabetes Stroke Social History Smoking Status: Never smoker alcohol intake: current substance use type: denies use current occupational status: retired Travel in the last 8 weeks: None Review of Systems Constitutional Constitutional: Denies frequent falls, Denies headache(s) and Reports weakness ENT Ears, Nose, Mouth, and Throat: Reports dizziness and Denies headache(s) *Cardiovascular Cardiovascular: Denies syncope *Musculoskeletal Musculoskeletal: Denies abnormal gait *Neurologic Neurologic: Denies abnormal gait, Denies abnormal speech, Denies convulsions, Reports dizziness, Denies frequent falls, Denies headache(s), Denies syncope and Reports weakness Meds Home Medications and Allergies Home Medications Medication Instructions Recorded Confirmed Type aspirin 81 mg tablet,delayed 81 mg PO DAILY [facility] 10/18/21 12/18/21 History release atorvastatin 40 mg tablet 40 mg PO DAILY #30 tabs 11/29/21 12/18/21 Rx carvedilol 3.125 mg tablet 3.125 mg PO BID #60 tabs 11/29/21 12/18/21 Rx ticagrelor 90 mg tablet (Brilinta) 90 mg PO BID #60 tabs 11/29/21 12/18/21 Rx apixaban 2.5 mg tablet (Eliquis) 2.5 mg PO BID Blood 12/18/21 12/18/21 History thinner/defibrillator ferrous
--- NOTE | 2021-12-19 12:11 | HMH.PROCNOTE ---
[facility] Procedure Note Date: 12/19/21 Time: 12:11 Procedure Note:: Anesthesia consulted by Dr. Tyler. Patient deemed unstable at this time by anesthesia. Significant hypotension, cardiogenic shock, severe hyponatremia and hx of LA cause patient to be at significantly higher risk for anesthesia complications during procedure. From an anesthesia standpoint, hyponatremia and stabilization of blood pressure need to be addressed prior to procedure. We appreciate Dr. Tyler's consult.
--- NOTE | 2021-12-19 14:15 | PC.NURSE ---
Addendum entered by Lena Reynolds RN 12/19/21 14:32: new orders: hold entresto, lasix and stop milrinone drip. pt needs to stay in stepdown at this time. Original Note: Scottie Sarabia in cardiology hold the following medications: entresto lasix carvedilol 1400
--- NOTE | 2021-12-19 14:30 | PC.NURSE ---
ROUNDED ON PATIENT. VERIFIED BLOOD WITH LESLIE. PATIENT HAS NO CONCERNS OR QUESTIONS. STATES HE FEELS OKAY. CALL LIGHT IN REACH. ENCOURAGED HIM TO RING OUT NEEDED
[2021-12-19 16:01] LABS: Hematocrit 29.1 % (42.0-52.0); Hemoglobin 9.5 g/dL (14.1-18.0)
[2021-12-20] VITALS (20 sets, daily range): BP systolic 88–106; BP diastolic 47–70; PULSE 61–77; RESP 12–20; TEMP 35.6–36.5; O2SAT 93–98; BMI 23.7
--- NOTE | 2021-12-20 | IR_ITS ---
APPROVED REPORT Patient Location: Outpatient PROCEDURES Right internal jugular vein access Right heart catheterization INDICATION Pulmonary hypertension, Systolic congestive heart failure, Acute kidney injury, Severe hyponatremia, Acute blood loss, Indeterminate volume status Informed consent was obtained prior to the procedure. COMPLICATIONS none Estimated Blood Loss: less 10 ml TECHNIQUE One percent lidocaine was used to anesthetize the right anterior aspect of the neck. A activities director scouting needle was used to identify the right internal jugular vein. Following this a larger cannulation needle was used to cannulate the right internal jugular vein and a wire was passed into the vein. Prior to the 7 Serbian sheath being inserted the wire was confirmed under fluoroscopic guidance to be in the inferior vena cava. A 7 Serbian sheath was introduced and a [place]Ry catheter was floated using hemodynamic waveforms in the pulmonary artery, right ventricle , and right atrium. Saturations were obtained in the pulmonary artery and the right atrium. At the end of the procedure the patient was transferred to the postop holding area in stable condition for sheath removal. ANGIOGRAPHIC RESULTS Right atrial pressure 25 mmHg Pulmonary pressure 90/45 mmHg Pulmonary occlusion pressure 30 mmHg Right atrial saturation 65% Pulmonary saturation 66% Aortic saturation 98% Hemoglobin 9.9 Cardiac output 5.4 L/min per Dustin IMPRESSION Severe to critical pulmonary hypertension Biventricular congestive heart failure Ongoing acute kidney injury likely secondary to recent acute blood loss accompanied by hypotension PLAN 1. Restart milrinone 0.125 mcg/kg/min 2. Patient likely is experiencing an GENNA secondary to the hypotension. It is doubtful diuretics will be efficacious at this point until the GENNA resolves, which will likely take 48 to 96 hours 3. In the meantime supportive care. 4. Once creatinine starts to improve restart IV diuretics 5. Hold IV fluids at this time Electronically signed by : Javier Kapadia MD 12/20/2021 13:58:17
[2021-12-20 06:21] LABS: MANUAL DIFFERENTIAL MANUAL DIFFERENTIAL (MANUAL DIFF)
[2021-12-20 06:30] LABS: Basophils % 0.3 % (0.1-2.0); Eosinophils % 0.5 % (0.1-12.0); Hematocrit 30.6 % (42.0-52.0); Hemoglobin 9.9 g/dL (14.1-18.0); Lymphocytes # 0.9 K/mm3 (0.7-4.5); Lymphocytes % 11.2 % (10-50); Mean Corpuscular HGB Conc 32.3 g/dL (31.8-35.4); Mean Corpuscular Hemoglobin 28.7 pg (27.0-31.2); Mean Corpuscular Volume 88.8 fl (80-94); Mean Platelet Volume 8.5 fl (7.4-10.4); Monocytes # 0.8 K/mm3 (0.1-1.0); Monocytes % 9.3 % (1.7-9.3); Neutrophils # 6.4 K/mm3 (1.8-7.8); Neutrophils % 78.7 % (37.0-80.0); Platelet Count 217 K/mm3 (142-424); Red Blood Count 3.44 M/mm3 (4.60-6.20); Red Cell Distribution Width 17.4 % (11.5-17.5); White Blood Count 8.2 K/mm3 (4.8-10.8)
[2021-12-20 06:40] LABS: Blood Urea Nitrogen 69 mg/dl (9-20); Calcium 8.4 mg/dl (8.4-10.2); Carbon Dioxide 22 mmol/L (22.0-30.0); Chloride 91 mmol/L (98-107); Creatinine Clearance Estimated 31 mL/min (50-200); Estimated Glomerular Filt Rate 36 ml/min (>60); GFR (African American) 44 ML/MIN (>60); Glucose 102 mg/dl (74-100); Sodium 125 mmol/L (136-145)
[2021-12-20 08:05] LABS: Lymphocytes % 9 % (10-50); Monocytes % 11 % (2-9); Neutrophils % 80 % (42-76); Total Cells Counted 100
[2021-12-20 08:06] LABS: Platelet Estimate Normal; RBC Morphology Normal
--- NOTE | 2021-12-20 08:33 | EXP.SURG.PN ---
Subjective Patient reports: other Narrative: Epistaxis (via right nares) noted overnight. Currently with packing secured. Exam Data for Last 24 hours Vital signs and Labs for Last 24 Hours: Temp Pulse Resp BP Pulse Ox 97.7 F 70 16 100/70 L 94 L 12/20/21 08:22 12/20/21 08:00 12/20/21 08:00 12/20/21 08:00 12/20/21 08:00 Laboratory Results - last 24 hr 12/18/21 16:05: Blood Type O Positive, Antibody Screen Negative, Crossmatch (AHG) See Detail 12/19/21 09:02: WBC 8.5, RBC 3.00 L, Hgb 8.8 L, Hct 26.4 L, MCV 87.7, MCH 29.2, MCHC 33.2, RDW 17.0, Plt Count 219, MPV 8.4, Neut % (Auto) 78.9, Lymph % (Auto) 10.1, [place] % (Auto) 8.9, Eos % (Auto) 1.9, Baso % (Auto) 0.2, Neut # (Auto) 6.7, Lymph # (Auto) 0.9, [place] # (Auto) 0.8, Eos # (Auto) 0.2, Baso # (Auto) 0.0 12/19/21 15:45: Hgb 9.5 L, Hct 29.1 L 12/20/21 05:48: Sodium 125 L, Potassium 4.0, Chloride 91 L, Carbon Dioxide 22, Anion Gap 16.0 H, BUN 69 H, Creatinine 1.80 H, Estimated Creat Clear 31, Estimated GFR 36 L, Est GFR ( Amer) 44 L, Glucose 102 H, Calcium 8.4 12/20/21 05:48: WBC 8.2, RBC 3.44 L, Hgb 9.9 L, Hct 30.6 L, MCV 88.8, MCH 28.7, MCHC 32.3, RDW 17.4, Plt Count 217, MPV 8.5, Neut % (Auto) 78.7, Lymph % (Auto) 11.2, [place] % (Auto) 9.3, Eos % (Auto) 0.5, Baso % (Auto) 0.3, Neut # (Auto) 6.4, Lymph # (Auto) 0.9, [place] # (Auto) 0.8, Eos # (Auto) 0.0, Baso # (Auto) 0.0, Total Counted 100, Neutrophils % (Manual) 80 H, Lymphocytes % (Manual) 9 L, Monocytes % (Manual) 11 H, Platelet Estimate Normal, RBC Morphology Normal I & O for Last 24 hours: Intake & Output 12/17/21 12/18/21 12/19/21 12/20/21 11:59 11:59 11:59 11:59 Intake Total 1608 / 1608 1300 / 1300 Output Total 1100 / 1100 2150 / 2150 Balance 508 / 508 -850 / -850 Weight 157 lb 156 lb 6.4 oz Constitutional Constitutional: no acute distress *Routine HEENT Exam ENT: Present other (Right nares packing in place) *Routine Respiratory Exam Respiratory: Absent respiratory distress *Routine Cardiovascular Exam Cardiovascular: Absent tachycardia Progress Note: A&P Assessment and plan (1) Anemia: Status: Acute Assessment and plan: Hemoglobin 9.9 this AM. Currently, the risks associated with sedation for endoscopic evaluation likely outweigh any benefit. (2) Melena: Status: Acute Assessment and plan: Continue proton pump inhibition May benefit from Carafate May benefit from Cytotec (3) Epistaxis: Status: Acute (4) Hypotension: Status: Acute (5) Chronic systolic heart failure: Status: Acute (6) CAD (coronary artery disease): Status: Acute (7) Afib: Status: Acute (8) Severe aortic stenosis: Status: Acute
--- NOTE | 2021-12-20 08:33 | EXP.PN ---
Subjective *Date: 12/20/21 *Time: 16:23 Interval history: Patient awakened about 2 AM with a nosebleed. Right nostril has been packed. There are some bloody drainage down the back of his throat. He is hungry this morning and would like to eat breakfast. He states his breathing is somewhat better. He denies chest pain. He had no further bowel movements yesterday or today thus far. He is voiding QS. He appears to be diuresing. Hemoglobin is stable this morning at 9.9 with hematocrit of 30.6. Sodium remains low at 125 with a potassium of 4. BUN is 69 and creatinine is 1.8. He was seen by anesthesia for possible EGD today. They felt he was too unstable due to blood pressure and hyponatremia. Exam Data for Last 24 hours Vital signs and Labs for Last 24 Hours: Temp Pulse Resp BP Pulse Ox 97.7 F 70 16 100/70 L 94 L 12/20/21 08:22 12/20/21 08:00 12/20/21 08:00 12/20/21 08:00 12/20/21 08:00 Laboratory Results - last 24 hr 12/18/21 16:05: Blood Type O Positive, Antibody Screen Negative, Crossmatch (AHG) See Detail 12/19/21 09:02: WBC 8.5, RBC 3.00 L, Hgb 8.8 L, Hct 26.4 L, MCV 87.7, MCH 29.2, MCHC 33.2, RDW 17.0, Plt Count 219, MPV 8.4, Neut % (Auto) 78.9, Lymph % (Auto) 10.1, [place] % (Auto) 8.9, Eos % (Auto) 1.9, Baso % (Auto) 0.2, Neut # (Auto) 6.7, Lymph # (Auto) 0.9, [place] # (Auto) 0.8, Eos # (Auto) 0.2, Baso # (Auto) 0.0 12/19/21 15:45: Hgb 9.5 L, Hct 29.1 L 12/20/21 05:48: Sodium 125 L, Potassium 4.0, Chloride 91 L, Carbon Dioxide 22, Anion Gap 16.0 H, BUN 69 H, Creatinine 1.80 H, Estimated Creat Clear 31, Estimated GFR 36 L, Est GFR ( Amer) 44 L, Glucose 102 H, Calcium 8.4 12/20/21 05:48: WBC 8.2, RBC 3.44 L, Hgb 9.9 L, Hct 30.6 L, MCV 88.8, MCH 28.7, MCHC 32.3, RDW 17.4, Plt Count 217, MPV 8.5, Neut % (Auto) 78.7, Lymph % (Auto) 11.2, [place] % (Auto) 9.3, Eos % (Auto) 0.5, Baso % (Auto) 0.3, Neut # (Auto) 6.4, Lymph # (Auto) 0.9, [place] # (Auto) 0.8, Eos # (Auto) 0.0, Baso # (Auto) 0.0, Total Counted 100, Neutrophils % (Manual) 80 H, Lymphocytes % (Manual) 9 L, Monocytes % (Manual) 11 H, Platelet Estimate Normal, RBC Morphology Normal I & O for Last 24 hours: Intake & Output 12/17/21 12/18/21 12/19/21 12/20/21 11:59 11:59 11:59 11:59 Intake Total 1608 / 1608 1300 / 1300 Output Total 1100 / 1100 2150 / 2150 Balance 508 / 508 -850 / -850 Weight 157 lb 156 lb 6.4 oz Constitutional Constitutional: no acute distress Comments: Sitting up in the bed and trying to eat breakfast around nasal packing. *Routine HEENT Exam ENT: Absent nares patent (Right nares with packing and no noticeable active bleeding.) *Routine Respiratory Exam Respiratory: Present crackles (Few right basilar crackles) *Routine Cardiovascular Exam Cardiovascular: Present RRR (Paced rhythm) *Routine Abdominal Exam Abdominal: Present soft, normoactive bowel sounds and distended; Absent tenderness *Routine Extremities Exam Extremities: Present edema (Bilateral pitting leg edema) *Routine Neurological Exam Neurological: Present alert and oriented X3 Assessment and Plan *Assessment and plan (1) Epistaxis: Status: Acute Category: Medical Code(s): R04.0 - Epistaxis (2) Severe aortic stenosis: Status: Acute Category: Medical Code(s): I35.0 - Nonrheumatic aortic (valve) stenosis (3) HLD (hyperlipidemia): Status: Acute Category: Medical Code(s): E78.5 - Hyperlipidemia, unspecified (4) CAD (coronary artery disease): Status: Acute Category: Medical Code(s): I25.10 - Atherosclerotic heart disease of [place] coronary artery without angina pectoris (5) Afib: Status: Acute Category: Medical Code(s): I48.91 - Unspecified atrial fibrillation (6) Chronic systolic heart failure: Status: Acute Category: Medical Code(s): I50.22 - Chronic systolic (congestive) heart failure (7) Hypotension: Status: Acute Category
--- NOTE | 2021-12-20 08:39 | EXP.CARD.PN ---
Subjective Subjective Date: 12/20/21 Time: 08:00 Principal diagnosis: anemia Interval history: Patient doing well today, sitting up, denies chest pain or soa. Reports nose bleed that started last night. Right nare is currently packed. BP up to 100/70. +1 bilateral LE edema noted to legs. Hgb 9.9 and stable. Sodium 125 creatinine up to 1.8. Echo 12/20/2021 Conclusion 1.? Dilated left ventricle seen with his left ventricular systolic function, estimated ejection fraction 20-25% left ventricle is globally hypokinetic, grade 2 diastolic dysfunction seen with tissue Doppler evidence of raise left atrial pressure. 2.? Thickened and calcified aortic valve, the aortic valve area calculated in the study is 1.6 cm 5 which represents mild aortic stenosis, previously reported aortic valve 8.9 cm??? 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 Aortic valve is thickened and calcified leaflet continue to display mobility. 3.? Moderate mitral and mild tricuspid regurgitation. 4.? No significant pericardial effusion. 5.? Inferior vena cava is poorly visualized. Exam Data for Last 24 hours Vital signs and Labs for Last 24 Hours: Temp Pulse Resp BP Pulse Ox 97.7 F 70 16 100/70 L 94 L 12/20/21 08:22 12/20/21 08:00 12/20/21 08:00 12/20/21 08:00 12/20/21 08:00 Laboratory Results - last 24 hr 12/18/21 16:05: Blood Type O Positive, Antibody Screen Negative, Crossmatch (AHG) See Detail 12/19/21 09:02: WBC 8.5, RBC 3.00 L, Hgb 8.8 L, Hct 26.4 L, MCV 87.7, MCH 29.2, MCHC 33.2, RDW 17.0, Plt Count 219, MPV 8.4, Neut % (Auto) 78.9, Lymph % (Auto) 10.1, [place] % (Auto) 8.9, Eos % (Auto) 1.9, Baso % (Auto) 0.2, Neut # (Auto) 6.7, Lymph # (Auto) 0.9, [place] # (Auto) 0.8, Eos # (Auto) 0.2, Baso # (Auto) 0.0 12/19/21 15:45: Hgb 9.5 L, Hct 29.1 L 12/20/21 05:48: Sodium 125 L, Potassium 4.0, Chloride 91 L, Carbon Dioxide 22, Anion Gap 16.0 H, BUN 69 H, Creatinine 1.80 H, Estimated Creat Clear 31, Estimated GFR 36 L, Est GFR ( Amer) 44 L, Glucose 102 H, Calcium 8.4 12/20/21 05:48: WBC 8.2, RBC 3.44 L, Hgb 9.9 L, Hct 30.6 L, MCV 88.8, MCH 28.7, MCHC 32.3, RDW 17.4, Plt Count 217, MPV 8.5, Neut % (Auto) 78.7, Lymph % (Auto) 11.2, [place] % (Auto) 9.3, Eos % (Auto) 0.5, Baso % (Auto) 0.3, Neut # (Auto) 6.4, Lymph # (Auto) 0.9, [place] # (Auto) 0.8, Eos # (Auto) 0.0, Baso # (Auto) 0.0, Total Counted 100, Neutrophils % (Manual) 80 H, Lymphocytes % (Manual) 9 L, Monocytes % (Manual) 11 H, Platelet Estimate Normal, RBC Morphology Normal I & O for Last 24 hours: Intake & Output 12/17/21 12/18/21 12/19/21 12/20/21 23:59 23:59 23:59 23:59 Intake Total 490 / 490 2178 / 2178 240 / 240 Output Total 0 / 600 2150 / 2750 1100 / 1100 Balance 490 / -110 28 / -572 -860 / -860 Weight 147 lb 5 oz 156 lb 8.451 oz 156 lb 6.4 oz Constitutional Constitutional: no acute distress *Routine Respiratory Exam Respiratory: Present CTA bilaterally and symmetric chest movement *Routine Cardiovascular Exam Cardiovascular: Present RRR, Normal S1 and Normal S2 Comments: +1 bilateral LE edema noted *Routine Abdominal Exam Abdominal: Present soft and normoactive bowel sounds; Absent tenderness *Routine Extremities Exam Extremities: Present full ROM and normal capillary refill; Absent edema *Routine Skin Exam Skin: Present intact, dry and warm Detailed Neck Exam: Thyroids Thyroid: Absent bruit Progress Note: A&P Assessment and plan (1) Anemia: Status: Acute (2) Melena: Status: Acute (3) Epistaxis: Status: Acute (4) Hypotension: Status: Acute (5) Chronic systolic heart failure: Status: Acute (6) CAD (coronary artery disease): Status: Acute (7) Afib: Status: Acute (8) Severe aortic stenosis: Status: Acute Assessment and Plan Assessment and Plan for All Diagnoses:: ?Chronic systolic heart failure s/p AICD -EF 20% -BP remains low. Hold Entresto due to low bp. can continue BB.? 12/20- Plan for
[2021-12-20 11:13] LABS: Transferrin 372 mg/dL (149-313)
--- NOTE | 2021-12-20 13:15 | PC.NURSE ---
pt to cathlab
--- NOTE | 2021-12-20 14:20 | PC.NURSE ---
back from [facility]
--- NOTE | 2021-12-20 14:31 | PC.NURSE ---
Milrinone gtt restarted @ 0.125mcg/kg/min per Fernando Abbasi
[2021-12-20 14:35] LABS: CATHL Arterial O2 SAT 66 % (90-100); CATHL Venous O2 SAT 65 % (75-80)
--- NOTE | 2021-12-20 16:24 | P.PN_ITS ---
Subjective *Date: 12/20/21 *Time: 16:24 Interval history: RHC REPORT IMPRESSION: Severe to critical pulmonary hypertension Biventricular congestive heart failure Ongoing acute kidney injury likely secondary to recent acute blood loss accompanied by hypotension PLAN 1. Restart milrinone 0.125 mcg/kg/min 2. Patient likely is experiencing an GENNA secondary to the hypotension.? It is doubtful diuretics will be efficacious at this point until the GENNA resolves, which will likely take 48 to 96 hours 3. In the meantime supportive care. 4. Once creatinine starts to improve restart IV diuretics 5. Hold IV fluids for now. Medical Exam Vital signs and Labs for Last 24 Hours: Temp Pulse Resp BP Pulse Ox 97.5 F L 75 20 100/61 L 95 12/20/21 11:00 12/20/21 10:00 12/20/21 10:00 12/20/21 10:00 12/20/21 10:00 Laboratory Results - last 24 hr 12/18/21 16:05: Transferrin 372 H 12/20/21 01:51: ABG O2 Sat (Measured) 66 L, POC VBG O2 Sat (Alia) 65 L 12/20/21 05:48: Sodium 125 L, Potassium 4.0, Chloride 91 L, Carbon Dioxide 22, Anion Gap 16.0 H, BUN 69 H, Creatinine 1.80 H, Estimated Creat Clear 31, Estimat ed GFR 36 L, Est GFR ( Amer) 44 L, Glucose 102 H, Calcium 8.4 12/20/21 05:48: WBC 8.2, RBC 3.44 L, Hgb 9.9 L, Hct 30.6 L, MCV 88.8, MCH 28.7, MCHC 32.3, RDW 17.4, Plt Count 217, MPV 8.5, Neut % (Auto) 78.7, Lymph % (Auto) 11.2, [place] % (Auto) 9.3, Eos % (Auto) 0.5, Baso % (Auto) 0.3, Neut # (Auto) 6.4, Lymph # (Auto) 0.9, [place] # (Auto) 0.8, Eos # (Auto) 0.0, Baso # (Auto) 0.0, Total Counted 100, Neutrophils % (Manual) 80 H, Lymphocytes % (Manual) 9 L, Monocytes % (Manual) 11 H, Platelet Estimate Normal, RBC Morphology Normal I & O for Labs for Last 24 Hours: Intake & Output 12/18/21 12/19/21 12/20/21 12/21/21 11:59 11:59 11:59 11:59 Intake Total 1608 / 1608 1300 / 1300 0 / 0 Output Total 1100 / 1100 2400 / 2400 175 / 175 Balance 508 / 508 -1100 / -1100 -175 / -175 Weight 157 lb 156 lb 6.4 oz Assessment and Plan *Assessment and plan (1) Chronic systolic heart failure: Status: Acute Category: Medical Code(s): I50.22 - Chronic systolic (congestive) heart failure (2) Pulmonary hypertension: Status: Acute Category: Medical Code(s): I27.20 - Pulmonary hypertension, unspecified (3) GENNA (acute kidney injury): Status: Acute Category: Medical Code(s): N17.9 - Acute kidney failure, unspecified Plan As above.
--- NOTE | 2021-12-20 18:43 | PC.NURSE ---
shift summary: GCS 15. Pt has done well this shift. Underwent right heart cath. Is paced on tele with rate 70. Mild hypotension with SBP 90s. Milrinone gtt restarted @ 0.125mcg/kg/min. No issues noted. Protonix gtt infusing @ 10mg/hr. Pt had nose bleed early this morning. No bleeding noted since returning from label maker. No BM this shift. No hematuria. No n/v. O2 sat high 90s on RA.
[2021-12-21] VITALS (8 sets, daily range): BP systolic 84–132; BP diastolic 47–57; PULSE 68–75; RESP 17–31; TEMP 36.4–36.6; O2SAT 94–95; BMI 23.7
--- NOTE | 2021-12-21 06:36 | PC.NURSE ---
Pt A&O x3. Remains on milrinone gtt @ 0.125 mcg/kg/min. Protonix @ 10 ml/hr. Pt denies any discomfort. States he has not had a BM for 3 days. No bleeding noted this shift. Pt has voided x1. VSS. Call light at bedside.
--- NOTE | 2021-12-21 08:54 | EXP.CARD.PN ---
Subjective Subjective Date: 12/21/21 Time: 08:00 Principal diagnosis: anemia, chf Interval history: S/p RHC, see report below. Remains on milrinone. Reports increased urine output yesterday. Denies chest pain or soa. BP 88/50. Bilateral 2+ LE edema noted. AM creatinine down to 1.7, sodium increased to 127. Hgb 8.9 ANGIOGRAPHIC RESULTS Right atrial pressure 25 mmHg Pulmonary pressure 90/45 mmHg Pulmonary occlusion pressure 30 mmHg Right atrial saturation 65% Pulmonary saturation 66% Aortic saturation 98% Hemoglobin 9.9 Cardiac output 5.4 L/min per Dustin IMPRESSION Severe to critical pulmonary hypertension Biventricular congestive heart failure Ongoing acute kidney injury likely secondary to recent acute blood loss accompanied by hypotension PLAN 1. Restart milrinone 0.125 mcg/kg/min 2. Patient likely is experiencing an GENNA secondary to the hypotension.? It is doubtful diuretics will be efficacious at this point until the GENNA resolves, which will likely take 48 to 96 hours 3. In the meantime supportive care. 4. Once creatinine starts to improve restart IV diuretics 5. Hold IV fluids at this time Exam Data for Last 24 hours Vital signs and Labs for Last 24 Hours: Temp Pulse Resp BP Pulse Ox 97.6 F 70 19 88/50 L 95 12/21/21 07:45 12/21/21 06:00 12/21/21 06:00 12/21/21 06:00 12/21/21 06:00 Laboratory Results - last 24 hr 12/18/21 16:05: Transferrin 372 H 12/20/21 01:51: ABG O2 Sat (Measured) 66 L, POC VBG O2 Sat (Alia) 65 L I & O for Last 24 hours: Intake & Output 12/18/21 12/19/21 12/20/21 12/21/21 23:59 23:59 23:59 23:59 Intake Total 490 / 490 2178 / 2178 921 / 921 432 / 432 Output Total 0 / 600 2150 / 2750 2600 / 2600 100 / 100 Balance 490 / -110 28 / -572 -1679 / -1679 332 / 332 Weight 147 lb 5 oz 156 lb 8.451 oz 156 lb 6.4 oz 156 lb 6.405 oz Constitutional Constitutional: no acute distress *Routine Respiratory Exam Respiratory: Present CTA bilaterally and symmetric chest movement *Routine Cardiovascular Exam Cardiovascular: Present Normal S1 and Normal S2 *Routine Abdominal Exam Abdominal: Present soft and normoactive bowel sounds; Absent tenderness *Routine Extremities Exam Extremities: Present full ROM and normal capillary refill; Absent edema Comments: 2+ LE edema *Routine Skin Exam Skin: Present intact, dry and warm Detailed Neck Exam: Thyroids Thyroid: Absent bruit Progress Note: A&P Assessment and plan (1) Chronic systolic heart failure: Status: Acute (2) Pulmonary hypertension: Status: Acute (3) GENNA (acute kidney injury): Status: Acute Assessment and Plan Assessment and Plan for All Diagnoses:: ?Chronic systolic heart failure s/p AICD -EF 20% -BP remains low. Hold Entresto due to low bp. can continue BB.? 12/20- Plan for Right heart cath today 12/21- S/p RHC, see report above. Biventricular congestive heart failure noted. Continue Milrinone. BP remains low, hold entresto and diuretics at this time per Dr. Kapadia. Please place compression stockings back on patient for 2+ pitting edema Hypotension -Hold lasix, entresto. can continue BB -stop milrinone 12/20-Improved and stable at 100/70. 12/21- 92/53. continue milrinone per Dr. Kapadia Mild aortic stenosis-stable -aortic valve calculated at 0.9cm, mean gradient across aortic valve is 10. Dr. Kapadia requesting repeat echo looking at valve while on milrinone drip. -Repeat echo aortic valve 1.6mm- see report above CAD-Stable -Stable, see recent [facility] above -Continue Brilinta, statin, and BB. Aspirin on hold due to GI bleed. Melena/anemia-epistaxis -Holding eliquis -Hgb s/p transfusion 8.8. 4th PRBC pending transfusion -Surgery consult completed. Plan for endoscopic eval once stable. -Continue protonix drip 12/20- Nose bleed noted over the night, packing in place 12/21- No further melena or epistaxis reported PAF -Continue BB. Eliquis on hold due to GI bleed. 12/21 Remains nsr. Cont
--- NOTE | 2021-12-21 09:24 | EXP.ACUTE.PN ---
Subjective *Date: 12/21/21 *Time: 11:02 Interval history: Patient states he is feeling well today. He denies any chest pain and states that he only gets short of breath if he gets up and moves. He slept well last night and is eating well. He remains on a milrinone drip. Medical Exam Vital signs and Labs for Last 24 Hours: Temp Pulse Resp BP Pulse Ox 97.6 F 70 19 88/50 L 95 12/21/21 07:45 12/21/21 06:00 12/21/21 06:00 12/21/21 06:00 12/21/21 06:00 Laboratory Results - last 24 hr 12/18/21 16:05: Transferrin 372 H 12/20/21 01:51: ABG O2 Sat (Measured) 66 L, POC VBG O2 Sat (Alia) 65 L I & O for Labs for Last 24 Hours: Intake & Output 12/18/21 12/19/21 12/20/21 12/21/21 11:59 11:59 11:59 11:59 Intake Total 1608 / 1608 1300 / 1300 1113 / 1113 Output Total 1100 / 1100 2400 / 2400 1350 / 1350 Balance 508 / 508 -1100 / -1100 -237 / -237 Weight 157 lb 156 lb 6.4 oz 156 lb 6.405 oz Head: Present normocephalic Neck: Present normal inspection (No JVD noted) Respiratory: Present decreased breath sounds and rales (Bibasilar); Absent respiratory distress Cardiac: Present Reg Rate and Rhythm (Pacemaker) GI: Present soft; Absent tenderness or rigidity Rectal (male): Present deferred (male): Present deferred Extremities: Present edema (2+) Skin: Present intact Neuro: Present alert, awake and oriented x 3 Assessment and Plan *Assessment and plan (1) Anemia: Status: Acute Category: Medical Code(s): D64.9 - Anemia, unspecified (2) Systolic CHF with reduced left ventricular function, NYHA class 3: Status: Chronic Category: Medical Code(s): I50.20 - Unspecified systolic (congestive) heart failure (3) Severe aortic stenosis: Status: Acute Category: Medical Code(s): I35.0 - Nonrheumatic aortic (valve) stenosis (4) HLD (hyperlipidemia): Status: Acute Category: Medical Code(s): E78.5 - Hyperlipidemia, unspecified (5) CAD (coronary artery disease): Status: Acute Category: Medical Code(s): I25.10 - Atherosclerotic heart disease of [place] coronary artery without angina pectoris (6) Afib: Status: Acute Category: Medical Code(s): I48.91 - Unspecified atrial fibrillation (7) Chronic systolic heart failure: Status: Acute Category: Medical Code(s): I50.22 - Chronic systolic (congestive) heart failure (8) Hypotension: Status: Acute Category: Medical Code(s): I95.9 - Hypotension, unspecified (9) Melena: Status: Acute Category: Medical Code(s): K92.1 - Melena (10) AICD (automatic cardioverter/defibrillator) present: Status: Acute Category: Surgical Code(s): Z95.810 - Presence of automatic (implantable) cardiac defibrillator (11) Elevated left ventricular end-diastolic pressure (LVEDP): Status: Acute Category: Medical Code(s): R94.30 - Abnormal result of cardiovascular function study, unspecified (12) Hyponatremia: Status: Acute Category: Medical Code(s): E87.1 - Hypo-osmolality and hyponatremia Plan Right heart cath showed severe to critical pulmonary hypertension with biventricular congestive heart failure and ongoing kidney injury likely secondary to recent acute blood loss accompanied by hypotension. The patient was restarted on milrinone. Cardiology felt once his creatinine improves, he can restart IV diuretics. His blood pressure has remained low, therefore they are holding Entresto and Lasix. He will have a repeat echo. They will continue to hold Eliquis due to GI bleed and the need for blood transfusion. He had a normal bowel movement this morning. There was no melena and his epistaxis has resolved. Assessment and plan all Dx Assessment and Plan All Dx:: Patient seen and examined. Concur with above. Bleeding appears to have stopped. H&H is stable. Will continue to follow
[2021-12-21 10:22] LABS: Basophils % 0.3 % (0.1-2.0); Eosinophils # 0.1 K/mm3 (0.0-0.4); Eosinophils % 1.6 % (0.1-12.0); Hematocrit 28.2 % (42.0-52.0); Hemoglobin 8.9 g/dL (14.1-18.0); Lymphocytes # 0.7 K/mm3 (0.7-4.5); Lymphocytes % 9.9 % (10-50); Mean Corpuscular HGB Conc 31.6 g/dL (31.8-35.4); Mean Corpuscular Hemoglobin 28.9 pg (27.0-31.2); Mean Corpuscular Volume 91.5 fl (80-94); Monocytes # 0.8 K/mm3 (0.1-1.0); Monocytes % 11.2 % (1.7-9.3); Neutrophils # 5.8 K/mm3 (1.8-7.8); Platelet Count 228 K/mm3 (142-424); Red Blood Count 3.09 M/mm3 (4.60-6.20); Red Cell Distribution Width 17.8 % (11.5-17.5); White Blood Count 7.5 K/mm3 (4.8-10.8)
[2021-12-21 10:30] LABS: Chloride 92 mmol/L (98-107)
[2021-12-21 10:31] LABS: Sodium 127 mmol/L (136-145)
[2021-12-21 10:34] LABS: Blood Urea Nitrogen 62 mg/dl (9-20); Calcium 8.3 mg/dl (8.4-10.2); Carbon Dioxide 24 mmol/L (22.0-30.0); Creatinine Clearance Estimated 33 mL/min (50-200); Estimated Glomerular Filt Rate 39 ml/min (>60); GFR (African American) 47 ML/MIN (>60); Glucose 113 mg/dl (74-100)
--- NOTE | 2021-12-21 11:15 | PC.NURSE ---
Milrinone gtt STOPPED per cardiology
--- NOTE | 2021-12-22 10:42 | CARE MANAGER ---
Spoke with patient related to hospital discharge. He states he is doing okay but still having swelling. He is taking diuretic and stopped medications he was directed to hold. He is aware of follow up appointments. Denies any other questions or concerns. LM Olson
--- NOTE | 2021-12-22 21:57 | EXP.DC.SUM ---
General Admission date:: 12/18/21 Discharge date: 12/21/21 HPI HPI HPI: Mr. Galaviz is an 81-year-old male patient with an extensive cardiac history to include a massive heart attack in 2000 cardiac bypass surgery x2, pacemaker with defibrillator, recent admission to [facility] with cardiac cath on 11/27/2021 with placement of several stents with angioplasty, chronic systolic heart failure, ischemic cardiomyopathy, who presented to the office of Dr. Kapadia, lead shipper, with progressive shortness of breath and leg edema and stomach swelling.? He denies shortness of breath.? He reported having black stools, nausea but no vomiting.? He has not been eating or drinking well. ? He started wearing his PAULINE hose again today after being off for about 3 to 4 days.? He has had a decreased in urinary output at home.? He also describes along with his increasing shortness of breath, dizziness, sweating, fatigue and wanting to sleep all the time with no energy.? With exam in the office of Dr. Kapadia he was found to have had an 11 pound weight gain.? Blood pressure was 90/46.? O2 sats were 100% on room air.? He? had lab work done which showed hemoglobin of 6.3 and hematocrit of 19.5, creatinine was 1.7 and sodium was low at 127.? Thus he was directly admitted to the services of Dr. Hedrick for administration of blood and diuresis.? Cardiology will continue to follow. Hospital Course Hospital Course Hospital Course: The patient was transfused with 3 units of packed red blood cells and started on a milrinone drip. 40 mg of IV Lasix was ordered twice daily as per cardiology. He did feel better after his transfusion and had less dizziness and shortness of breath. He was able to ambulate. He continued to have some black-colored stools. His H&H did improve, but was still low. He was given additional packed red blood cells. His blood chemistry showed a low sodium of 126 with a potassium of 4. Iron was low and creatinine was 1.7. Chest x-ray showed no change in a patchy right lung base opacity and abnormal pleural thickening in the inferior bilateral hemothoraces. He remained on milrinone drip with systolic pressures in the 80s and low 90s. After his transfusions, he had rales and leg edema. Additional Lasix was ordered. Cardiology saw the patient in consultation. His Entresto was held due to low blood pressure and his Lasix was held as well. His milrinone drip was stopped. His Eliquis was held as well due to his anemia. Surgery was consulted and he was continued on a Protonix drip. He was seen in consultation by Dr. Tyler who wanted him kept n.p.o. for an EGD. He then began having a nosebleed and his right nostril had to be packed. His hemoglobin remained stable, but his sodium remained low. He was seen by anesthesia for possible EGD and they felt he was too unstable due to his low blood pressure and hyponatremia. The patient had a repeat echo while he had been on the milrinone drip which showed an EF of 20 to 25% with grade 2 diastolic dysfunction. He also had mild aortic stenosis. Cardiology wanted to perform a right heart cath. His right heart cath showed severe to critical pulmonary hypertension, biventricular congestive heart failure, ongoing acute kidney injury likely secondary to recent acute blood loss accompanied by hypotension. Cardiology restarted his milrinone drip and felt he was experiencing acute kidney injury secondary to the hypotension. They were doubtful diuretics would be efficacious until his acute kidney injury resolved, which would likely take 48 to 96 hours. They recommended supportive care and once his creatinine started to improve, they would restart IV diuretics. By 12/21/2021, the patient was feeling well. He denied any chest pain and only had shortness of breath with activity. He slept well and was eating well and remains on a milrinone drip. He did have a normal bowel movement and there was no melena. His epist
== END 2021-12-21 13:05 | disposition home or self-care (01) | DRG 811 ==
LOC: 2ND 15:16
PROVIDERS: Family Medicine; Internal Medicine; Nurse Practitioner Family; Surgery; Admitting Provider Family Medicine; PCP Family Medicine; Visit Provider Family Medicine
PROC: 0DJ08ZZ Inspection of Upper Intestinal Tract, Via Natural or Artificial Opening Endoscopic (ICD-10-PCS; CPT 43235; principal; 2021-12-20 07:30)
PROC: 4A023N6 Measurement of Cardiac Sampling and Pressure, Right Heart, Percutaneous Approach (ICD-10-PCS; principal; 2021-12-20 10:00)
DX: D64.9 Anemia, unspecified (principal); R57.0 Cardiogenic shock; I50.22 Chronic systolic (congestive) heart failure; R17 Unspecified jaundice; I48.20 Chronic atrial fibrillation, unspecified; E87.1 Hypo-osmolality and hyponatremia; N17.9 Acute kidney failure, unspecified; E78.5 Hyperlipidemia, unspecified; I25.10 Atherosclerotic heart disease of native coronary artery without angina pectoris; I25.5 Ischemic cardiomyopathy; R94.30 Abnormal result of cardiovascular function study, unspecified; Z95.1 Presence of aortocoronary bypass graft; Z95.5 Presence of coronary angioplasty implant and graft; Z95.810 Presence of automatic (implantable) cardiac defibrillator; I11.0 Hypertensive heart disease with heart failure; I25.2 Old myocardial infarction; Z79.01 Long term (current) use of anticoagulants; I27.20 Pulmonary hypertension, unspecified; I50.82 Biventricular heart failure; R04.0 Epistaxis; I35.0 Nonrheumatic aortic (valve) stenosis; I48.0 Paroxysmal atrial fibrillation
CPT/HCPCS: 30901; 36415; 71045; 80048; 80061; 80076; 82607; 82728; 82746; 82810; 83540; 83550; 83735; 84466; 85007; 85014; 85018; 85025; 85044; 85048; 85049; 86850; 93306; 93451; 99152; C1894; C9803; J1644; J2260; P9016; U0003; U0005

== ENCOUNTER → 2021-12-25 07:31 | Outpatient (CLI) | payer MEDICARE, BC, SELFPAY ==
[2021-12-25 08:19] LABS: Basophils # 0.1 K/mm3 (0-0.2); Basophils % 0.6 % (0.1-2.0); Eosinophils # 0.2 K/mm3 (0.0-0.4); Hematocrit 32.9 % (42.0-52.0); Hemoglobin 10.3 g/dL (14.1-18.0); Lymphocytes % 13.1 % (10-50); Mean Corpuscular HGB Conc 31.3 g/dL (31.8-35.4); Mean Corpuscular Hemoglobin 28.6 pg (27.0-31.2); Mean Corpuscular Volume 91.3 fl (80-94); Mean Platelet Volume 7.8 fl (7.4-10.4); Monocytes # 0.7 K/mm3 (0.1-1.0); Monocytes % 8.9 % (1.7-9.3); Neutrophils # 5.7 K/mm3 (1.8-7.8); Neutrophils % 75.4 % (37.0-80.0); Platelet Count 353 K/mm3 (142-424); White Blood Count 7.6 K/mm3 (4.8-10.8)
[2021-12-25 08:29] LABS: Anion Gap 15.2 mEq/L (5-15); Blood Urea Nitrogen 37 mg/dl (9-20); Calcium 8.6 mg/dl (8.4-10.2); Carbon Dioxide 27 mmol/L (22.0-30.0); Chloride 92 mmol/L (98-107); Estimated Glomerular Filt Rate 53 ml/min (>60); GFR (African American) 64 ML/MIN (>60); Glucose 116 mg/dl (74-100); Potassium 4.2 mmoL/L (3.5-5.1); Sodium 130 mmol/L (136-145)
== END ==
PROVIDERS: PCP Family Medicine; Visit Provider Family Medicine
DX: N17.9 Acute kidney failure, unspecified (principal); D64.9 Anemia, unspecified
CPT/HCPCS: 36415; 80048; 85025

== ENCOUNTER → 2022-01-01 11:21 | Outpatient (CLI) | payer MEDICARE, BC, SELFPAY ==
[2022-01-01 12:01] LABS: Basophils % 0.3 % (0.1-2.0); Eosinophils # 0.1 K/mm3 (0.0-0.4); Hematocrit 33.1 % (42.0-52.0); Hemoglobin 10.7 g/dL (14.1-18.0); Lymphocytes # 0.7 K/mm3 (0.7-4.5); Lymphocytes % 10.8 % (10-50); Mean Corpuscular HGB Conc 32.3 g/dL (31.8-35.4); Mean Corpuscular Hemoglobin 28.9 pg (27.0-31.2); Mean Corpuscular Volume 89.4 fl (80-94); Mean Platelet Volume 8.7 fl (7.4-10.4); Monocytes # 0.5 K/mm3 (0.1-1.0); Monocytes % 7.1 % (1.7-9.3); Neutrophils # 5.5 K/mm3 (1.8-7.8); Neutrophils % 80.8 % (37.0-80.0); Platelet Count 313 K/mm3 (142-424); Red Cell Distribution Width 16.8 % (11.5-17.5); White Blood Count 6.8 K/mm3 (4.8-10.8)
[2022-01-01 12:38] LABS: Anion Gap 15.2 mEq/L (5-15); Blood Urea Nitrogen 30 mg/dl (9-20); Calcium 8.4 mg/dl (8.4-10.2); Carbon Dioxide 28 mmol/L (22.0-30.0); Chloride 88 mmol/L (98-107); Estimated Glomerular Filt Rate 53 ml/min (>60); GFR (African American) 64 ML/MIN (>60); Glucose 105 mg/dl (74-100); Potassium 4.2 mmoL/L (3.5-5.1); Sodium 127 mmol/L (136-145)
== END ==
PROVIDERS: PCP Family Medicine; Visit Provider Internal Medicine
DX: I50.20 Unspecified systolic (congestive) heart failure (principal); R60.0 Localized edema; R06.00 Dyspnea, unspecified
CPT/HCPCS: 36415; 80048; 85025; C9803; U0003; U0005

== ENCOUNTER 2022-01-03 13:55 | Inpatient (IN) | payer MEDICARE, OTHER, BC, SELFPAY ==
[2022-01-03] VITALS (17 sets, daily range): BP systolic 96–124; BP diastolic 54–71; PULSE 69–95; RESP 16–20; TEMP 35.7–36.7; O2SAT 96–100; BMI 23.8; BMI 26.2
--- NOTE | 2022-01-03 | IR_ITS ---
APPROVED REPORT Patient Location: Outpatient Core Carrier: MALLORY Brantley RT (R) PROCEDURES 1. Pocket Revision 2. Placement of left ventricular sensing pacing lead into the coronary sinus. 3. Explantation of old AICD device 4. Permanent cardiac resynchronization therapy with ICD implantation/biventricular pacemaker. INDICATION Systolic Congestive Heart Failure, ejection <35%, Wide QRS > 120 ms, [place] Heart Association Class 3 Congestive Heart Failure Informed consent was obtained prior to the procedure. Estimated Blood Loss: LESS THAN 10 ML TECHNIQUE 1% lidocaine with epinephrine used to anesthetize the left anterior aspect of the chest. Scalpel was used to make the initial cutaneous incision and to dissect down into the fascia. The generator was removed from the existing pocket. Existing leads detached from generator and attached to new generator. Digital manipulation was required along with intermittent usage of scalpel in order to revise the pocket. Left subclavian vein was accessed and wire inserted, 9.5 fr sheath inserted over the wire. Under fluoroscopic guidance the coronary sinus was cannulated and confirmed with an injection of contrast. An 0.014 wire was then placed distally in the inferior posterior segment of the left ventricle via the coronary sinus and the left ventricular lead was advanced. After achieving excellent thresholds and interrogation numbers the sheath was then peeled away and the lead was then secured into place using silk suture. Ancef was used to flush the pocket. The generator was then secured into place by heavy silk suture. Monocryl was used to close the subcutaneous layers while ellen were used to close the subcutaneous layers while ellen were used to close the cutaneous layer. A pressure dressing was placed and the patient was transferred to the postop holding area in stable condition for postoperative care. Patient was initially managed using an LMA along with sedation. Shortly after starting the procedure and after the pacemaker was removed from the pocket O2 saturations dropped and patient's blood pressure dropped. Epinephrine was initially given and patient continued to be bagged. Eventually it was decided by anesthesia to proceed with endotracheal intubation. There appeared to be loss of blood pressure therefore chest compressions were given and epinephrine was also given for hemodynamic support, patient responded well to endotracheal intubation chest compressions and epinephrine and then became hemodynamically stable on his own. The procedure proceeded without additional issues and the LV lead was easily and quickly placed via the coronary sinus with excellent thresholds. Blood pressure was becoming more labile toward the end of the procedure therefore epinephrine drip was started along with Levophed for hemodynamic support with plans to admit patient for supportive care INTERROGATION Generator Model number: Alejandra X4 FASHION EDITOR-D, G138 Generator Serial number: [id number] Chronic Right Atrial lead P-wave: 1.0 mV Impedence: 282 Ohms Threshold: 1.0 V Current: 2.5 mA Chronic Right Ventricuar Lead R-wave: 0.0 mV Impedence: 1015 Ohms Threshold: 1.5V@0.4ms Current: 1.5 mA Left Ventricular lead model number: CHANDANA X4 Straight, 4671, 86cm Left Ventricular lead serial number: [id number] R-wave: 15.0 mV Impedence: 690 Ohms Threshold: 2.5V@1.0ms Current: mA Pacing Parameters: Mode: DDDR Base/Max Track: 70/130 bpm ICD Rate Cutoffs: VT: 170 bpm. 2.5 sec, ATP, 41Jx1, 41Jx1, 41Jx4 VF: 200 bpm. 2.5 sec, Quick convert, 41Jx1, 41Jx1, 41Jx6 No diaphragmatic stimulation at 10 volts.
--- NOTE | 2022-01-03 09:04 | XR_ITS ---
FINAL REPORT CLINICAL HISTORY: Confirm pacemaker/AID placement COMPARISON: 12/18/2021 FINDINGS: SINGLE-VIEW CHEST There is cardiomegaly. The patient is status post median sternotomy. Left subclavian ICD is present. New endotracheal tube tip terminates in the midthoracic trachea. There are persistent bilateral pulmonary opacities worrisome for pneumonia. Small pleural effusions are noted. There is no pneumothorax. IMPRESSION: Lines and tubes as above. Persistent pulmonary opacities worrisome for pneumonia. Small pleural effusions. Reviewed, Interpreted and Dictated by Jonathon Valladares III, MD Transcribed by Pepper Oviedo Authenticated and [facility]
--- NOTE | 2022-01-03 10:00 | SUR.OPER ---
Pt has small sore noted on his coccyx, stated he has had that since the last night he was in the hospital.
--- NOTE | 2022-01-03 11:01 | P.PN_ITS ---
[facility] Medical History GENNA (acute kidney injury) Anemia CAD (coronary artery disease) Cholecystectomy planned Chronic systolic heart failure Elevated left ventricular end-diastolic pressure (LVEDP) Hyperlipidemia Hypertension MCC current use of anticoagulant therapy Myocardial Infarction PAF (paroxysmal atrial fibrillation) Pulmonary hypertension Sinusitis Syncope Surgical History AICD (automatic cardioverter/defibrillator) present History of inguinal hernia repair Hx of CABG Hx of transurethral resection of prostate Family History Other Coronary artery disease Diabetes Stroke Social History Smoking Status: Never smoker alcohol intake: current substance use type: denies use current occupational status: retired Travel in the last 8 weeks: None [facility] Anesthesia Checklist Patient Identification Patient Identification: Arm Band Structural Data Admitted From: Home Planned Operative Procedure/s: Biventricular Pacemaker Upgrade Consent for Planned Operative Procedure(s) Verified: Yes Verified Documents: Surgical Consent and History and Physical NPO Status Verified Time NPO: 00:00 Additional verifications Anesthesia Reactions: No Airway Assessment C-Spine Mobility Assessed: Yes TMJ Mobility Assessed: Yes Dentition: Good Dentition Neurological Assessment Level of Consciousness: Awake and Alert Anesthesia Plan Anesthesia Risk discussed: Yes Anesthesia Plan: Verified ASA Class: IV Anesthesia Type: MAC
[2022-01-03 13:51] LABS: ABG Base Excess 0.7 mmol/L (-2.4-2.3); ABG HCO3 25.1 mmhg (22.0-26.0); ABG Oxygen Saturation 77 % (90-100); ABG PCO2 39.2 mmhg (35.0-45.0); ABG PH 7.42 mmol/L (7.35-7.45); ABG TCO2 26.3 mmhg (23-27); Oxygen 100 %
[2022-01-03 13:52] LABS: ABG PO2 43.4 mmhg (80-100)
--- NOTE | 2022-01-03 14:14 | SUR.PHASEII ---
1318: ABG results reported to Dr. Kapadia
--- NOTE | 2022-01-03 14:20 | CA_ITS ---
APPROVED REPORT EXAM: Limited 2D Echocardiogram Retail Training Manager: Cora Rice RVT Ht: 5 ft 9 in Wt: 161lbs BSA: 1.88 BP: 93/60 mmHg Indications: EF CHECK,S/P BI-V PLACEMENT,S/P CODE-PT INTUBATED,EF OF 20-25% ON 12/19/21,CARDIOGENIC SHOCK M-Mode Dimensions RVDd 2.12 cm (0.9-2.6) LA Diam 6.25 cm (1.9-4.0) LVDd 5.72 cm (3.5-5.7) Ao Diam 2.97 cm (2.0-3.7) LVDs 5.12 cm (3.5-5.7) IVSd 0.27 cm (0.6-1.1) PWd 0.61 cm (0.6-1.1) EF (Teich) 22.60% FS 10.50% EDV (Teich) 161.30 mL ESV (Teich) 124.90 mL Conclusion 1. Limited echocardiogram was obtained to evaluate left ventricular systolic function, left ventricle is mildly dilated, there is severe left ventricular systolic dysfunction, estimated ejection fraction 20%, left ventricle is globally hypokinetic. 2. AICD or pacemaker lead seen in right ventricle. 3. No significant pericardial effusion noted. Electronically signed by : Daniel Bryan MD 01/04/2022 06:33:24
--- NOTE | 2022-01-03 14:24 | PC.NURSE ---
patient arrived by stretcher from laboratory technical specialist
--- NOTE | 2022-01-03 14:25 | EXP.CARD.CON ---
History of Present Illness History of Present Illness Consult date: 01/03/22 Requesting physician: Renny Lee Chief complaint: cardiac arrest Additional Medical History:: Past medical Hx -CAD S/p CABG and stenting -PAF on Eliquis which is currently on hold due to reoccuring GI bleed and nose bleed -Chronic systolic heart failure with upgrade of device to BiV AICD on 01/03/2022 -HTN -Chronic anemia -severe pulmonary HTN -recent GENNA [facility] 11/27/2021 IMPRESSION Critical two-vessel coronary disease involving the proximal LAD and circumflex artery along with obtuse marginal artery Successful stenting the proximal to mid LAD critical disease reduced to 0% with 2 contiguous drug-eluting stents Successful stenting the proximal circumflex artery severe disease reduced to 0% followed by additional stenting into the first obtuse marginal artery reducing the critical subtotal occlusion to 0% Successful angioplasty of the second obtuse marginal artery reducing a jailed 90% stenosis to 0% Critical left ventricular dysfunction with severely elevated LVEDP and severe regional wall motion abnormality PLAN 1. Supportive care which should include dual antiplatelet therapy 2. Avoidance of IV fluids due to GENNA and cardiogenic shock 3. Brilinta 90 twice daily plus aspirin 81 mg daily 4. Supportive care 5. Depending on the results of the creatinine tomorrow it would be reasonable to start patient on Entresto while carefully monitoring creatinine levels 6. Recommend renal duplex to evaluate for renal artery stenosis 7. Echocardiogram in the morning 8. Low-dose beta-blockers once hemodynamically stable 9. Gentle diuresis due to critically elevated LVEDP.? I do anticipate the EDP will improve now that patient has been revascularized and LV dysfunction should hopefully improved from acute stenting 10. LDL less than 55 to be achieved with high intensity statin Echo 12/19/2021 Conclusion 1.? Dilated left ventricle seen with his left ventricular systolic function, estimated ejection fraction 20-25% left ventricle is globally hypokinetic, grade 2 diastolic dysfunction seen with tissue Doppler evidence of raise left atrial pressure. 2.? Thickened and calcified aortic valve, the aortic valve area calculated in the study is 1.6 cm 5 which represents mild aortic stenosis, previously reported aortic valve 8.9 cm??? 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 Aortic valve is thickened and calcified leaflet continue to display mobility. 3.? Moderate mitral and mild tricuspid regurgitation. 4.? No significant pericardial effusion. 5.? Inferior vena cava is poorly visualized. 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 Restart milrinone 0.125 mcg/kg/min 2. Patient likely is experiencing an GENNA secondary to the hypotension.? It is doubtful diuretics will be efficacious at this point until the GENNA resolves, which will likely take 48 to 96 hours 3. In the meantime supportive care. 4. Once creatinine starts to improve restart IV diuretics 5. Hold IV fluids at this time History of present illness: 81 year old white male with above past medical hx presented to hospital for outpatient scheduled upgrade of AICD to BiVentricular AICD. Shortly after receiving anesthesia patient started to decline requiring intubation and short period of cpr, see analytical lab technician report. ROSC was achieved and upgrade of device was completed. Patient currently remains intubated and on Levo and Epi drip. Patient was recently admitted to hospital for GENNA,
--- NOTE | 2022-01-03 14:30 | SUR.OPER ---
Pt coded during procedure. See merg report for information regarding code blue and see code flow sheet. Pt immediately taken from the lab to 2nd floor via stretcher with report given to Dorie Bach at bedside.
[2022-01-03 14:32] LABS: ABG HCO3 24.2 mmhg (22.0-26.0); ABG Oxygen Saturation 98 % (90-100); ABG PCO2 42.8 mmhg (35.0-45.0); ABG PH 7.37 mmol/L (7.35-7.45); ABG PO2 141.9 mmhg (80-100); ABG TCO2 25.6 mmhg (23-27)
[2022-01-03 14:36] LABS: Oxygen 100 %; Source ALINE
--- NOTE | 2022-01-03 16:01 | EXP.PULM.CON ---
History of Present Illness History of present illness: Mr. Galaviz is a 81-year-old male signal history of CAD, CHF EF 20 to 25%, A. fib, pulmonary hypertension with a wedge 25 presented for an elective procedure for biventricular pacemaker installation, had a a hypoxic event followed by cardiac arrest status post CPR with return of circulation needing intubation mechanical ventilator and pressor support and pulmonary was called for further management. 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 Myocardial Infarction On mechanically assisted ventilation PAF (paroxysmal atrial fibrillation) Pulmonary hypertension Shock Sinusitis Syncope Surgical History AICD (automatic cardioverter/defibrillator) present History of inguinal hernia repair Hx of CABG Hx of transurethral resection of prostate Family History Other Coronary artery disease Diabetes Stroke Social History Smoking Status: Never smoker alcohol intake: current substance use type: denies use current occupational status: retired Travel in the last 8 weeks: None Review of Systems Constitutional Constitutional: Reports weakness *Neurologic Neurologic: Reports weakness Pulmonology Exam Inpatient Vital signs and Labs for Last 24 Hours: Temp Pulse Resp BP Pulse Ox FiO2 96.2 F L 89 16 113/58 L 100 40 01/03/22 14:34 01/03/22 14:34 01/03/22 14:34 01/03/22 14:34 01/03/22 14:34 01/03/22 15:30 Laboratory Results - last 24 hr 01/03/22 13:10: Specimen Source a- line, O2 % 100, ABG pH 7.42, ABG pCO2 39.2, ABG pO2 43.4 L, ABG HCO3 25.1, ABG Total CO2 26.3, ABG O2 Saturation 77 L*, ABG Base Excess 0.7 01/03/22 14:20: Specimen Source [place], O2 % 100, ABG pH 7.37, ABG pCO2 42.8, ABG pO2 141.9 H, ABG HCO3 24.2, ABG Total CO2 25.6, ABG O2 Saturation 98, ABG Base Excess -1.0 I & O for Labs for Last 24 Hours: Intake & Output 12/31/21 01/01/22 01/02/22 01/03/22 23:59 23:59 23:59 23:59 Output Total 150 / 150 Balance -150 / -150 Weight 170 lb 3 oz Head: Present normocephalic and atraumatic ENT: Present normal exam and normal oropharynx Neck: Present normal inspection Respiratory: Present patient mechanically ventilated, crackles, diminished air movement and symmetric chest movement; Absent wheezes Comment:: Hematoma around pacemaker site Cardiac: Present Irregularly Regular, S1/S2, Tachycardia and radial pulses present GI: Present soft and distention; Absent tenderness or guarding Skin: Present intact; Absent cyanosis or jaundice Neuro: Absent alert, awake or oriented x 3 Extremities: Present normal inspection and edema; Absent clubbing or cyanosis Psychiatric: Present normal affect and cooperative Meds Home Medications and Allergies Home Medications Medication Instructions Recorded Confirmed Type aspirin 81 mg tablet,delayed 81 mg PO DAILY [facility] 10/18/21 01/01/22 History release ticagrelor 90 mg tablet (Brilinta) 90 mg PO BID #60 tabs 11/29/21 01/01/22 Rx apixaban 2.5 mg tablet (Eliquis) 2.5 mg PO BID Blood 12/18/21 01/01/22 History thinner/defibrillator ferrous sulfate 325 mg (65 mg 325 mg PO BID Iron Supplement 12/18/21 01/01/22 History iron) tablet herbal drugs 2 tab PO BID Supplement 12/18/21 01/01/22 History atorvastatin 40 mg tablet 40 mg PO DAILY #90 tabs 12/27/21 01/01/22 Rx carvedilol 3.125 mg tablet 3.125 mg PO BID #180 tabs 12/27/21 01/01/22 Rx bumetanide 2 mg tablet 2 mg PO DAILY #90 tabs 01/01/22 Rx mupirocin 2 % topical
--- NOTE | 2022-01-03 16:16 | CA_ITS ---
FINAL REPORT TECHNIQUE: Grayscale and color Doppler ultrasound images with graded compression of the deep venous system were obtained from the groin to the calf veins bilaterally. CLINICAL HISTORY: Hypoxia, Dilated Cardiomyopathy- Heart failure, edema FINDINGS: Technically limited study. The visualized deep venous system is normal. There is no evidence of DVT. Flow and compressibility are normal. IMPRESSION: No evidence of left or right lower extremity DVT. Reviewed, Interpreted and Dictated by Jonathon Valladares III, MD Transcribed by Raza Bean Authenticated and [facility]
[2022-01-03 16:21] LABS: Basophils % 0.2 % (0.1-2.0); Eosinophils % 0.5 % (0.1-12.0); Hematocrit 32.5 % (42.0-52.0); Hemoglobin 10.5 g/dL (14.1-18.0); Lymphocytes # 0.7 K/mm3 (0.7-4.5); Lymphocytes % 7.5 % (10-50); Mean Corpuscular HGB Conc 32.2 g/dL (31.8-35.4); Mean Corpuscular Hemoglobin 28.7 pg (27.0-31.2); Mean Platelet Volume 8.2 fl (7.4-10.4); Monocytes # 0.4 K/mm3 (0.1-1.0); Monocytes % 3.9 % (1.7-9.3); Neutrophils # 8.2 K/mm3 (1.8-7.8); Platelet Count 341 K/mm3 (142-424); Red Blood Count 3.66 M/mm3 (4.60-6.20); White Blood Count 9.4 K/mm3 (4.8-10.8)
[2022-01-03 16:23] LABS: Chloride 94 mmol/L (98-107); Potassium 3.6 mmoL/L (3.5-5.1); Sodium 132 mmol/L (136-145)
[2022-01-03 16:25] LABS: Alanine Aminotransferase 34 U/L (12-78); Alkaline Phosphatase 174 U/L (38-126); Aspartate Amino Transferase 75 U/L (17-59); Bilirubin,Total 1.6 mg/dl (0.2-1.3); Blood Urea Nitrogen 28 mg/dl (9-20); Creatinine Clearance Estimated 47 mL/min (50-200); Estimated Glomerular Filt Rate 53 ml/min (>60); GFR (African American) 64 ML/MIN (>60)
[2022-01-03 16:26] LABS: Albumin Level 3.2 g/dl (3.5-5.0); Anion Gap 15.6 mEq/L (5-15); Calcium 8.1 mg/dl (8.4-10.2); Carbon Dioxide 26 mmol/L (22.0-30.0); Globulin 3.2 g/dL (1.3-3.2); Glucose 98 mg/dl (74-100); Magnesium 1.8 mg/dl (1.6-2.3); Phosphorous 4.3 mg/dl (2.5-4.5); Total Protein,Serum 6.4 g/dl (6.3-8.2)
[2022-01-03 16:35] LABS: MANUAL DIFFERENTIAL MANUAL DIFFERENTIAL (MANUAL DIFF)
--- NOTE | 2022-01-03 16:51 | EXP.HP ---
History of Present Illness *Admission Date: 01/03/22 *Reason for visit:: Cardiac arrest during pacemaker placement *History of present illness: 81 year old white male with above below medical hx presented to hospital for outpatient scheduled upgrade of AICD to BiVentricular AICD. Shortly after receiving anesthesia patient started to decline requiring intubation and short period of cpr, see lab aid report. ROSC was achieved and upgrade of device was completed. Patient currently remains intubated and on Levo and Epi drip. Patient was recently admitted to hospital for GENNA, acute GI bleed, cardiogenic shock, and acute on chronic chf exacerbation requiring milrinone drip.? Patient had follow up visit with Dr. Evans post discharge in which he was suppose to discuss upgrade of device to biventricular AICD but it was never discussed per patient and his at last visit. During last office visit patient and agreed to upgrade device at this facility as the patient was still having exacerbation of symptoms at that time. Patient is currently intubated on levo and epi.? ? [facility] 11/27/2021 IMPRESSION Critical two-vessel coronary disease involving the proximal LAD and circumflex artery along with obtuse marginal artery Successful stenting the proximal to mid LAD critical disease reduced to 0% with 2 contiguous drug-eluting stents Successful stenting the proximal circumflex artery severe disease reduced to 0% followed by additional stenting into the first obtuse marginal artery reducing the critical subtotal occlusion to 0% Successful angioplasty of the second obtuse marginal artery reducing a jailed 90% stenosis to 0% Critical left ventricular dysfunction with severely elevated LVEDP and severe regional wall motion abnormality PLAN 1. Supportive care which should include dual antiplatelet therapy 2. Avoidance of IV fluids due to GENNA and cardiogenic shock 3. Brilinta 90 twice daily plus aspirin 81 mg daily 4. Supportive care 5. Depending on the results of the creatinine tomorrow it would be reasonable to start patient on Entresto while carefully monitoring creatinine levels 6. Recommend renal duplex to evaluate for renal artery stenosis 7. Echocardiogram in the morning 8. Low-dose beta-blockers once hemodynamically stable 9. Gentle diuresis due to critically elevated LVEDP.? I do anticipate the EDP will improve now that patient has been revascularized and LV dysfunction should hopefully improved from acute stenting 10. LDL less than 55 to be achieved with high intensity statin Echo 12/19/2021 Conclusion 1.? Dilated left ventricle seen with his left ventricular systolic function, estimated ejection fraction 20-25% left ventricle is globally hypokinetic, grade 2 diastolic dysfunction seen with tissue Doppler evidence of raise left atrial pressure. 2.? Thickened and calcified aortic valve, the aortic valve area calculated in the study is 1.6 cm 5 which represents mild aortic stenosis, previously reported aortic valve 8.9 cm??? 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 Aortic valve is thickened and calcified leaflet continue to display mobility. 3.? Moderate mitral and mild tricuspid regurgitation. 4.? No significant pericardial effusion. 5.? Inferior vena cava is poorly visualized. 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 Restart milrinone 0.125 mcg/kg/min 2. Patient likely is experiencing an GENNA secondary to the hypotension.? It is doubtful diuretics will be efficacious at this point until the GENNA reso
[2022-01-03 17:03] LABS: Eosinophils % 1 % (0-3); Lymphocytes % 8 % (10-50); Neutrophils % 91 % (42-76); Total Cells Counted 100
[2022-01-03 17:04] LABS: Acanthocytes 1+; Ovalocytes 1+; Platelet Estimate Normal
[2022-01-03 17:17] LABS: Microscopic, Urine URINE MICROSCOPIC (MICROSCOPIC)
[2022-01-03 17:19] LABS: Appearance,Urine CLEAR (Clear); Bilirubin,Urine Negative (Negative); Blood, Urine TRACE-I (Negative); Color,Urine YELLOW (Yellow); Glucose,Urine (UA) Negative (Negative); Ketones,Urine Negative (Negative); Leukocyte Esterase,Urine Negative (Negative); Nitrate,Urine Negative (Negative); PH,Urine 5.5 (5.0-8.5); Protein,Urine 2+ (Negative); Urobilinogen,Urine 0.2 EU/dl (0.2)
[2022-01-03 17:35] LABS: Amorphous Sediment,Urine Trace /lpf; Bacteria,Urine 2+ /lpf; Squamous Epithelial Cell,Urine Occasional #/hpf (0-5)
--- NOTE | 2022-01-03 17:54 | PC.NURSE ---
pt was placed on fentanyl drip along with being on epi and levophed drips. pt lungs contain crackles in raul bases, bowel sounds hypoactive. upon arrival to unit pt rectal temp was noted to be 96.2. at 1730 temp had risen to 97.5 rectal. family is at bedside. during assessment pt pupils noted to be 2-3 mm and non reactive. pt has hematoma to left upper chest at pacer insertion site. Dr Kapadia has inspected site twice since arrival on unit. pt has art line to left wrist with significant oozing noted. Dr Kapadia notified at 1627. Dr Kapadia states to attempt to wean pt off of pressors (levo needs weaned before weaning of epi per MD), states that his pressures are higher now and causing the bleeding/oozing. pt has 2-3+ pitting edema noted to ble. since arrival to unit pt has been noted to have jerking mvmts of raul arm and shoulder areas with curlng in of bilateral hands. Chloe Garrido and Sophie aPrk all aware of mvmt of arms/hands.
--- NOTE | 2022-01-03 18:43 | PC.NURSE ---
Dressing changed to pacemaker site, Dr Hedrick present at bedside. pressure dressing applied.
--- NOTE | 2022-01-03 18:59 | PC.WOUNDNOTE ---
STAGE 2 NOTED TO THE COCCYX PACEMAKER SITE PACEMAKER SITE
[2022-01-03 19:00] LABS: Adenovirus,PCR Not Detected (NotDetected); Bordetella Pertussis Not Detected (NotDetected); Chlamydophila Pneumoniae, PCR Not Detected (NotDetected); Coronavirus 19, PCR Not Detected (NotDetected); Coronavirus 229E Not Detected (NotDetected); Coronavirus NL63 Not Detected (NotDetected); Coronavirus OC43 Not Detected (NotDetected); Coronovirus HKU1,PCR Not Detected (NotDetected); Human Metapneumovirus Not Detected (NotDetected); Influenza A, PCR Not Detected (NotDetected); Influenza AH1, 2009 Not Detected (NotDetected); Influenza AH1, PCR Not Detected (NotDetected); Influenza AH3,PCR Not Detected (NotDetected); Influenza B, PCR Not Detected (NotDetected); Mycoplasma Pneumoniae, PCR Not Detected (NotDetected); Parainfluenza 1, PCR Not Detected (NotDetected); Parainfluenza 2, PCR Not Detected (NotDetected); Parainfluenza 3, PCR Not Detected (NotDetected); Parainfluenza 4, PCR Not Detected (NotDetected); Respiratory Syncytial Virus Not Detected (NotDetected); Rhinovirus/Enterovirus Not Detected (NotDetected)
[2022-01-04] VITALS (34 sets, daily range): BP systolic 91–126; BP diastolic 47–65; PULSE 60–99; RESP 18; TEMP 36.7–38; O2SAT 99–100; BMI 27.2
--- NOTE | 2022-01-04 00:33 | PC.WOUNDNOTE ---
coccyx stage 2
--- NOTE | 2022-01-04 06:00 | XR_ITS ---
PROCEDURE INFORMATION: Exam: XR Chest Exam date and time: 01/04/2022 5:46 AM Age: 81 years old Clinical indication: Device placement; Ett placement (vent status); Patient HX: Et placement, og tube placement; Additional info: Intubation TECHNIQUE: Imaging protocol: Radiologic exam of the chest. Views: 1 view. COMPARISON: CR XR CHEST PORTABLE 01/03/2022 3:30 PM FINDINGS: Tubes, catheters and devices: Endotracheal tube terminates approximately 6.5 cm above the ying. NG tube passes into the pelvis. Cardiac rhythm maintenance device is in place. Lungs: Similar patchy bilateral airspace opacities. Pleural spaces: Unremarkable. No pleural effusion. No pneumothorax. Heart/Mediastinum: Cardiomegaly. Bones/joints: Status post median sternotomy. IMPRESSION: 1. Similar patchy bilateral airspace opacities. 2. Endotracheal tube terminates approximately 6.5 cm above the ying.
[2022-01-04 06:24] LABS: Basophils # 0.1 K/mm3 (0-0.2); Basophils % 0.9 % (0.1-2.0); Eosinophils % 0.5 % (0.1-12.0); Hematocrit 28.7 % (42.0-52.0); Lymphocytes # 1.1 K/mm3 (0.7-4.5); Lymphocytes % 13.7 % (10-50); Mean Corpuscular HGB Conc 32.6 g/dL (31.8-35.4); Mean Corpuscular Hemoglobin 28.6 pg (27.0-31.2); Mean Corpuscular Volume 87.6 fl (80-94); Mean Platelet Volume 8.2 fl (7.4-10.4); Monocytes # 0.7 K/mm3 (0.1-1.0); Monocytes % 8.6 % (1.7-9.3); Neutrophils % 76.3 % (37.0-80.0); Platelet Count 279 K/mm3 (142-424); Red Blood Count 3.28 M/mm3 (4.60-6.20); Red Cell Distribution Width 17.3 % (11.5-17.5); White Blood Count 7.9 K/mm3 (4.8-10.8)
[2022-01-04 06:28] LABS: Chloride 96 mmol/L (98-107); Potassium 3.5 mmoL/L (3.5-5.1); Sodium 132 mmol/L (136-145)
--- NOTE | 2022-01-04 06:28 | PC.NURSE ---
Vent settings are as follows: AC, FiO2 40%, TV 420, R 18, PEEP 5. Levophed is currently on standby. Epi @ 3 mcg/min. Pt bathed, Turned/repositioned. Oral care and suctioning provided. Pt remains on fentanyl gtt currently @ 40 mcg/hr. Has opened eyes at times. Pupils sluggish to respond to light. (R) eye appears to be 2 mm. (L) eye 3 mm. Eyes appear glazed. Pt gravitates to the left this AM. Pt noted to lift left arm during suction. F/C draining to bedside with clear, dark yellow urine. 3+ BLE. No BM this shift. Stage 2 noted to coccyx. Telemetry reveals paced rhythm. Family has remained at bedside t/o night.
[2022-01-04 06:31] LABS: Alanine Aminotransferase 30 U/L (12-78); Albumin Level 2.8 g/dl (3.5-5.0); Albumin/Globulin Ratio 0.9 (1.1-1.8); Alkaline Phosphatase 140 U/L (38-126); Anion Gap 13.5 mEq/L (5-15); Aspartate Amino Transferase 72 U/L (17-59); Bilirubin,Total 1.6 mg/dl (0.2-1.3); Blood Urea Nitrogen 32 mg/dl (9-20); Carbon Dioxide 26 mmol/L (22.0-30.0); Creatinine Clearance Estimated 45 mL/min (50-200); Estimated Glomerular Filt Rate 48 ml/min (>60); GFR (African American) 59 ML/MIN (>60); Total Protein,Serum 5.8 g/dl (6.3-8.2)
[2022-01-04 06:32] LABS: Calcium 7.9 mg/dl (8.4-10.2); Glucose 98 mg/dl (74-100); Hemoglobin 9.4 g/dL (14.1-18.0)
--- NOTE | 2022-01-04 07:04 | PC.NURSE ---
Epi titrated up to 4 mcg/min.
[2022-01-04 08:16] LABS: ABG Base Excess 0.8 mmol/L (-2.4-2.3); ABG HCO3 24.3 mmhg (22.0-26.0); ABG Oxygen Saturation 99 % (90-100); ABG PCO2 33.2 mmhg (35.0-45.0); ABG PH 7.48 mmol/L (7.35-7.45); ABG PO2 148.9 mmhg (80-100); ABG TCO2 25.3 mmhg (23-27)
--- NOTE | 2022-01-04 08:27 | PC.WOUNDNOTE ---
Stage II coccyx
[2022-01-04 08:31] LABS: Oxygen 40 %; PEEP 5; Source ALINE; Tidal Volume 420; Vent Rate 18
--- NOTE | 2022-01-04 08:50 | ECG_ITS ---
APPROVED REPORT Exam: Resting ECG HR:72 bpm ECG Measurements Heart Rate 72 AXES UT 206 P 212 QRSd 164 QRS 225 QT 455 T 48 QTc 479 Conclusion ELECTRONIC ATRIAL PACEMAKER ELECTRONIC VENTRICULAR PACEMAKER ABNORMAL RHYTHM ECG UNCONFIRMED REPORT Electronically signed by : Jose Ryan MD 01/06/2022 17:43:26
--- NOTE | 2022-01-04 08:51 | PC.NURSE ---
0830- Fentanyl turned off at this time per MD request.
--- NOTE | 2022-01-04 08:54 | EXP.ACUTE.PN ---
Subjective *Date: 01/04/22 *Time: 08:54 Interval history: Patient is off of the Levophed drip this morning and remains on an epinephrine drip. He is currently on fentanyl and cardiology wants to wean this to see if he will wake up. Medical Exam Vital signs and Labs for Last 24 Hours: Temp Pulse Resp BP Pulse Ox FiO2 100.4 F H 78 18 102/50 L 99 40 01/04/22 08:00 01/04/22 08:00 01/04/22 08:00 01/04/22 08:00 01/04/22 08:00 01/04/22 08:00 Laboratory Results - last 24 hr 01/03/22 13:10: Specimen Source a- line, O2 % 100, ABG pH 7.42, ABG pCO2 39.2, ABG pO2 43.4 L, ABG HCO3 25.1, ABG Total CO2 26.3, ABG O2 Saturation 77 L*, ABG Base Excess 0.7 01/03/22 14:20: Specimen Source [place], O2 % 100, ABG pH 7.37, ABG pCO2 42.8, ABG pO2 141.9 H, ABG HCO3 24.2, ABG Total CO2 25.6, ABG O2 Saturation 98, ABG Base Excess -1.0 01/03/22 15:15: Urine Color Yellow, Urine Appearance Clear, Urine pH 5.5, Ur Specific [place] 1.020, Urine Protein 2+, Urine Glucose (UA) Negative, Urine Ketones Negative, Urine Blood Trace-i, Urine Nitrate Negative, Urine Bilirubin Negative, Urine Urobilinogen 0.2, Ur Leukocyte Esterase Negative, Urine RBC 5-10, Urine WBC 3-5, Ur Squamous Epith Cells Occasional, Amorphous Sediment Trace, Urine Bacteria 2+ 01/03/22 15:55: WBC 9.4 D, RBC 3.66 L, Hgb 10.5 L, Hct 32.5 L, MCV 89.0, MCH 28.7, MCHC 32.2, RDW 17.0, Plt Count 341, MPV 8.2, Neut % (Auto) 88.0 H, Lymph % (Auto) 7.5 L, [place] % (Auto) 3.9, Eos % (Auto) 0.5, Baso % (Auto) 0.2, Neut # (Auto) 8.2 H, Lymph # (Auto) 0.7, [place] # (Auto) 0.4, Eos # (Auto) 0.0, Baso # (Auto) 0.0, Total Counted 100, Neutrophils % (Manual) 91 H, Lymphocytes % (Manual) 8 L, Eosinophils % (Manual) 1, Platelet Estimate Normal, Ovalocytes 1+, Acanthocytes (Spur) 1+ 01/03/22 15:55: Sodium 132 L, Potassium 3.6, Chloride 94 L, Carbon Dioxide 26, Anion Gap 15.6 H, BUN 28 H, Creatinine 1.30 H, Estimated Creat Clear 47, Estimated GFR 53 L, Est GFR ( Amer) 64, Glucose 98, Calcium 8.1 L, Phosphorus 4.3, Magnesium 1.8, Total Bilirubin 1.6 H, AST 75 H, ALT 34, Alkaline Phosphatase 174 H, Total Protein 6.4, Albumin 3.2 L, Globulin 3.2, Albumin/Globulin Ratio 1.0 L 01/03/22 16:00: Chlamy pneumoniae PCR Not detected, Adenovirus (PCR) Not detected, B. pertussis DNA (PCR) Not detected, Coronavirus OC43 (PCR) Not detected, Coronavirus HKU1 (PCR) Not detected, Coronavirus 229E (PCR) Not detected, SARS-CoV-2 (PCR) Not detected, Coronavirus NL63 (PCR) Not detected, Human Metapneumovir PCR Not detected, Influenza A (H1) PCR Not detected, Influ A (H1N1/09) PCR Not detected, Influenza A (H3) PCR Not detected, Influenza Type A (PCR) Not detected, Influenza Type B (PCR) Not detected, M. pneumoniae (PCR) Not detected, Parainfluenza 1 (PCR) Not detected, Parainfluenza 2 (PCR) Not detected, Parainfluenza 3 (PCR) Not detected, Parainfluenza 4 (PCR) Not detected, RSV (PCR) Not detected, Entero/Rhino (PCR) Not detected 01/04/22 06:00: Specimen Source [place], O2 % 40, ABG pH 7.48 H, ABG pCO2 33.2 L, ABG pO2 148.9 H, ABG HCO3 24.3, ABG Total CO2 25.3, ABG O2 Saturation 99, ABG Base Excess 0.8, Dominic Test N/a, Vent Rate 18, Tidal Volume 420, PEEP 5 01/04/22 06:05: WBC 7.9, RBC 3.28 L, Hgb 9.4 L D, Hct 28.7 L, MCV 87.6, MCH 28.6, MCHC 32.6, RDW 17.3, Plt Count 279, MPV 8.2, Neut % (Auto) 76.3, Lymph % (Auto) 13.7, [place] % (Auto) 8.6, Eos % (Auto) 0.5, Baso % (Auto) 0.9, Neut # (Auto) 6.0, Lymph # (Auto) 1.1, [place] # (Auto) 0.7, Eos # (Auto) 0.0, Baso # (Auto) 0.1 01/04/22 06:05: Sodium 132 L, Potassium 3.5, Chloride 96 L, Carbon Dioxide 26, Anion Gap 13.5, BUN 32 H, Creatinine 1.40 H, Estimated Creat Clear 45, Estimated GFR 48 L, Est GFR ( Amer) 59, Glucose 98, Calcium 7.9 L, Total Bilirubin 1.6 H, AST 72 H, ALT 30, Alkaline Phosphatase 140 H, Total Protein 5.8 L, Albumin 2.8 L D, Globulin 3.0, Albumin/Globulin Ratio 0.9 L I & O for Labs for Last 24 Hours: Intake & Output 01/01/22 01/02/22 01/03/22 01/04/22 11:59 11:59 11:59 11:59 Intake Total
--- NOTE | 2022-01-04 09:24 | EXP.CARD.PN ---
Subjective Subjective Date: 01/04/22 Time: 08:00 Principal diagnosis: s/p cardiac arrest and AICD upgrade Interval history: Remains intubated on epi drip. Fentanyl was given as needed last night and is currently off. Barely responding to painful stimuli, concern for posturing. Chest x-ray shows bilateral interstitial changes which appear chronic. ET tube 6.5 cm above the ying. 3+ pitting LE edema noted, right greater then left. Left anterior wall hematoma improving. EKG is paced rhythm. Good UOP noted. Morning labs as follow: Hgb 9.4, sodium 132, creatinine 1.4, GFR 48. Blood gas pH 7.48, PCO2 33.2, ABG pO2 148.9, HCO3 24.3, O2 sat 99%. Exam Data for Last 24 hours Vital signs and Labs for Last 24 Hours: Temp Pulse Resp BP Pulse Ox FiO2 100.4 F H 81 18 110/50 L 100 40 01/04/22 08:00 01/04/22 09:00 01/04/22 09:00 01/04/22 09:00 01/04/22 09:00 01/04/22 09:00 Laboratory Results - last 24 hr 01/03/22 13:10: Specimen Source a- line, O2 % 100, ABG pH 7.42, ABG pCO2 39.2, ABG pO2 43.4 L, ABG HCO3 25.1, ABG Total CO2 26.3, ABG O2 Saturation 77 L*, ABG Base Excess 0.7 01/03/22 14:20: Specimen Source [place], O2 % 100, ABG pH 7.37, ABG pCO2 42.8, ABG pO2 141.9 H, ABG HCO3 24.2, ABG Total CO2 25.6, ABG O2 Saturation 98, ABG Base Excess -1.0 01/03/22 15:15: Urine Color Yellow, Urine Appearance Clear, Urine pH 5.5, Ur Specific [place] 1.020, Urine Protein 2+, Urine Glucose (UA) Negative, Urine Ketones Negative, Urine Blood Trace-i, Urine Nitrate Negative, Urine Bilirubin Negative, Urine Urobilinogen 0.2, Ur Leukocyte Esterase Negative, Urine RBC 5-10, Urine WBC 3-5, Ur Squamous Epith Cells Occasional, Amorphous Sediment Trace, Urine Bacteria 2+ 01/03/22 15:55: WBC 9.4 D, RBC 3.66 L, Hgb 10.5 L, Hct 32.5 L, MCV 89.0, MCH 28.7, MCHC 32.2, RDW 17.0, Plt Count 341, MPV 8.2, Neut % (Auto) 88.0 H, Lymph % (Auto) 7.5 L, [place] % (Auto) 3.9, Eos % (Auto) 0.5, Baso % (Auto) 0.2, Neut # (Auto) 8.2 H, Lymph # (Auto) 0.7, [place] # (Auto) 0.4, Eos # (Auto) 0.0, Baso # (Auto) 0.0, Total Counted 100, Neutrophils % (Manual) 91 H, Lymphocytes % (Manual) 8 L, Eosinophils % (Manual) 1, Platelet Estimate Normal, Ovalocytes 1+, Acanthocytes (Spur) 1+ 01/03/22 15:55: Sodium 132 L, Potassium 3.6, Chloride 94 L, Carbon Dioxide 26, Anion Gap 15.6 H, BUN 28 H, Creatinine 1.30 H, Estimated Creat Clear 47, Estimated GFR 53 L, Est GFR ( Amer) 64, Glucose 98, Calcium 8.1 L, Phosphorus 4.3, Magnesium 1.8, Total Bilirubin 1.6 H, AST 75 H, ALT 34, Alkaline Phosphatase 174 H, Total Protein 6.4, Albumin 3.2 L, Globulin 3.2, Albumin/Globulin Ratio 1.0 L 01/03/22 16:00: Chlamy pneumoniae PCR Not detected, Adenovirus (PCR) Not detected, B. pertussis DNA (PCR) Not detected, Coronavirus OC43 (PCR) Not detected, Coronavirus HKU1 (PCR) Not detected, Coronavirus 229E (PCR) Not detected, SARS-CoV-2 (PCR) Not detected, Coronavirus NL63 (PCR) Not detected, Human Metapneumovir PCR Not detected, Influenza A (H1) PCR Not detected, Influ A (H1N1/09) PCR Not detected, Influenza A (H3) PCR Not detected, Influenza Type A (PCR) Not detected, Influenza Type B (PCR) Not detected, M. pneumoniae (PCR) Not detected, Parainfluenza 1 (PCR) Not detected, Parainfluenza 2 (PCR) Not detected, Parainfluenza 3 (PCR) Not detected, Parainfluenza 4 (PCR) Not detected, RSV (PCR) Not detected, Entero/Rhino (PCR) Not detected 01/04/22 06:00: Specimen Source [place], O2 % 40, ABG pH 7.48 H, ABG pCO2 33.2 L, ABG pO2 148.9 H, ABG HCO3 24.3, ABG Total CO2 25.3, ABG O2 Saturation 99, ABG Base Excess 0.8, Dominic Test N/a, Vent Rate 18, Tidal Volume 420, PEEP 5 01/04/22 06:05: WBC 7.9, RBC 3.28 L, Hgb 9.4 L D, Hct 28.7 L, MCV 87.6, MCH 28.6, MCHC 32.6, RDW 17.3, Plt Count 279, MPV 8.2, Neut % (Auto) 76.3, Lymph % (Auto) 13.7, [place] % (Auto) 8.6, Eos % (Auto) 0.5, Baso % (Auto) 0.9, Neut # (Auto) 6.0, Lymph # (Auto) 1.1, [place] # (Auto) 0.7, Eos # (Auto) 0.0, Baso # (Auto) 0.1 01/04/22 06:05: Sodium 132 L, Potassium 3.5, Chloride 96 L, Carbon Dioxid
--- NOTE | 2022-01-04 09:31 | EXP.PULM.PN ---
Subjective *Date: 01/04/22 *Time: 10:58 Interval history: No acute respiratory vents overnight. Intubated and sedated. Pulmonology Exam Inpatient Vital signs and Labs for Last 24 Hours: Temp Pulse Resp BP Pulse Ox FiO2 100.4 F H 81 18 110/50 L 100 40 01/04/22 08:00 01/04/22 09:00 01/04/22 09:00 01/04/22 09:00 01/04/22 09:00 01/04/22 09:00 Laboratory Results - last 24 hr 01/03/22 13:10: Specimen Source a- line, O2 % 100, ABG pH 7.42, ABG pCO2 39.2, ABG pO2 43.4 L, ABG HCO3 25.1, ABG Total CO2 26.3, ABG O2 Saturation 77 L*, ABG Base Excess 0.7 01/03/22 14:20: Specimen Source [place], O2 % 100, ABG pH 7.37, ABG pCO2 42.8, ABG pO2 141.9 H, ABG HCO3 24.2, ABG Total CO2 25.6, ABG O2 Saturation 98, ABG Base Excess -1.0 01/03/22 15:15: Urine Color Yellow, Urine Appearance Clear, Urine pH 5.5, Ur Specific [place] 1.020, Urine Protein 2+, Urine Glucose (UA) Negative, Urine Ketones Negative, Urine Blood Trace-i, Urine Nitrate Negative, Urine Bilirubin Negative, Urine Urobilinogen 0.2, Ur Leukocyte Esterase Negative, Urine RBC 5-10, Urine WBC 3-5, Ur Squamous Epith Cells Occasional, Amorphous Sediment Trace, Urine Bacteria 2+ 01/03/22 15:55: WBC 9.4 D, RBC 3.66 L, Hgb 10.5 L, Hct 32.5 L, MCV 89.0, MCH 28.7, MCHC 32.2, RDW 17.0, Plt Count 341, MPV 8.2, Neut % (Auto) 88.0 H, Lymph % (Auto) 7.5 L, [place] % (Auto) 3.9, Eos % (Auto) 0.5, Baso % (Auto) 0.2, Neut # (Auto) 8.2 H, Lymph # (Auto) 0.7, [place] # (Auto) 0.4, Eos # (Auto) 0.0, Baso # (Auto) 0.0, Total Counted 100, Neutrophils % (Manual) 91 H, Lymphocytes % (Manual) 8 L, Eosinophils % (Manual) 1, Platelet Estimate Normal, Ovalocytes 1+, Acanthocytes (Spur) 1+ 01/03/22 15:55: Sodium 132 L, Potassium 3.6, Chloride 94 L, Carbon Dioxide 26, Anion Gap 15.6 H, BUN 28 H, Creatinine 1.30 H, Estimated Creat Clear 47, Estimated GFR 53 L, Est GFR ( Amer) 64, Glucose 98, Calcium 8.1 L, Phosphorus 4.3, Magnesium 1.8, Total Bilirubin 1.6 H, AST 75 H, ALT 34, Alkaline Phosphatase 174 H, Total Protein 6.4, Albumin 3.2 L, Globulin 3.2, Albumin/Globulin Ratio 1.0 L 01/03/22 16:00: Chlamy pneumoniae PCR Not detected, Adenovirus (PCR) Not detected, B. pertussis DNA (PCR) Not detected, Coronavirus OC43 (PCR) Not detected, Coronavirus HKU1 (PCR) Not detected, Coronavirus 229E (PCR) Not detected, SARS-CoV-2 (PCR) Not detected, Coronavirus NL63 (PCR) Not detected, Human Metapneumovir PCR Not detected, Influenza A (H1) PCR Not detected, Influ A (H1N1/09) PCR Not detected, Influenza A (H3) PCR Not detected, Influenza Type A (PCR) Not detected, Influenza Type B (PCR) Not detected, M. pneumoniae (PCR) Not detected, Parainfluenza 1 (PCR) Not detected, Parainfluenza 2 (PCR) Not detected, Parainfluenza 3 (PCR) Not detected, Parainfluenza 4 (PCR) Not detected, RSV (PCR) Not detected, Entero/Rhino (PCR) Not detected 01/04/22 06:00: Specimen Source [place], O2 % 40, ABG pH 7.48 H, ABG pCO2 33.2 L, ABG pO2 148.9 H, ABG HCO3 24.3, ABG Total CO2 25.3, ABG O2 Saturation 99, ABG Base Excess 0.8, Dominic Test N/a, Vent Rate 18, Tidal Volume 420, PEEP 5 01/04/22 06:05: WBC 7.9, RBC 3.28 L, Hgb 9.4 L D, Hct 28.7 L, MCV 87.6, MCH 28.6, MCHC 32.6, RDW 17.3, Plt Count 279, MPV 8.2, Neut % (Auto) 76.3, Lymph % (Auto) 13.7, [place] % (Auto) 8.6, Eos % (Auto) 0.5, Baso % (Auto) 0.9, Neut # (Auto) 6.0, Lymph # (Auto) 1.1, [place] # (Auto) 0.7, Eos # (Auto) 0.0, Baso # (Auto) 0.1 01/04/22 06:05: Sodium 132 L, Potassium 3.5, Chloride 96 L, Carbon Dioxide 26, Anion Gap 13.5, BUN 32 H, Creatinine 1.40 H, Estimated Creat Clear 45, Estimated GFR 48 L, Est GFR ( Amer) 59, Glucose 98, Calcium 7.9 L, Total Bilirubin 1.6 H, AST 72 H, ALT 30, Alkaline Phosphatase 140 H, Total Protein 5.8 L, Albumin 2.8 L D, Globulin 3.0, Albumin/Globulin Ratio 0.9 L I & O for Labs for Last 24 Hours: Intake & Output 01/01/22 01/02/22 01/03/22 01/04/22 23:59 23:59 23:59 23:59 Intake Total 512 / 527 423 / 423 Output Total 320 / 355 395 / 395 Balance 192 / 172 28 / 28 Weight 170
--- NOTE | 2022-01-04 11:21 | DIET.NUTRFU ---
Addendum entered by Pili Bhatia RD, LD 01/04/22 11:50: increase TF as tolerated every shift by 10ml to reach 50ml/hour Original Note: TF recommendations: based on dry wt last visit of 70kg, nutritional needs are 1750-1850kcal (25-26kcal/kg), 84-91gm protein (1.2-1.3-stage 2), 1400ml fluid needs. Pulmocare 20ml/hr and then increase gradually to 50ml/hr providing 1200ml/1800kcal/75gm protein with 942ml formula fluid/day. keep flush at minimal d/t dextrose IVF with meds and hx of CHF. Flush with 50ml Y8mildr (200ml/day).
--- NOTE | 2022-01-04 11:24 | PC.NURSE ---
RESP CARE NOTE: ET tube advanced to 22 cm at the teeth, 2 cm advancement per AM xray. Per Dr Winters verbal order.
--- NOTE | 2022-01-04 12:02 | HMH.PHAINT1 ---
Pharmacy Intervention Comments: HOME MEDICATION RECONCILIATION COMPLETED USING OUTPATIENT PHARMACY LIST AND RECENT DISCHARGE MEDICATION LIST.
--- NOTE | 2022-01-04 16:26 | PC.NURSE ---
Patient remains off all sedation, is more alert than this morning, does respond to some painful stimuli, open eyes spontaneously, pupils pinpoint and minimally reactive, moves all extremities, does not follow commands at this time or make purposeful movement, intubated with 7.5 ETT, tube advanced this shift to 22 at the teeth, vent settings AC mode, FiO2 40%, RR 18, TV 420, peep 5, tolerating vent well, O2 saturations 99-100%, paced per telemetry, 2+ pitting edema noted to ble, 1+ edema noted to bue, lung sounds diminished t/o with scattered rhonchi noted in rul, abd soft with hypoactive bowel sounds in all quads, tube feedings initiated this shift, GRV 30 at first check, OG tube at 60, voids per FC, urine yellow and clear, good urine output this shift, peripheral pulses 1+, patient had fever this am, treated with tylenol suppository and has remained afebrile for the rest of the shift, lovenox started for vte prophylaxsis this shift, scuds in place ble, pacemaker site with dsg intact, ss drainage noted to dsg unchanged this shift, arterial line in place left wrist has had some oozing this shift, dsg replaced, stage II coccyx dsg placed this am, patient has been turned q2h side to side only, provided oral care and suctioning, minimal secretions, vss, hob 35 degrees, bed in lowest position with call light in reach, family at bedside.
[2022-01-05] VITALS (37 sets, daily range): BP systolic 90–128; BP diastolic 46–75; PULSE 70–111; RESP 18–24; TEMP 37.1–37.8; O2SAT 96–100; BMI 27.3
--- NOTE | 2022-01-05 05:05 | PC.NURSE ---
Pt will open eyes spontaneously. Pupils continue to be pinpoint and glazed. Pt will turn head towards stimuli. He will move head and extremities when touched. VSS. Pt is currently off all gtts at this time. Epi has been on standby since 229. He remains paced on telemetry. Vent settings are as follows: AC, FiO2 40%, TV 420, PEEP 5. F/C draining to bedside with clear, yellow urine. total urine output is 715ml. No BM this shift. Tube feeds, Pulmocare is currently infusing @ 30 ml/hr. Residuals 15, 10, 40. Pt bathed. Linens changed. Turned Q2 hr. Oral care and suctioning provided. Family remains at bedside.
--- NOTE | 2022-01-05 06:00 | XR_ITS ---
PROCEDURE INFORMATION: Exam: XR Chest Exam date and time: 01/05/2022 5:38 AM Age: 81 years old Clinical indication: Device placement; Ett placement (vent status); Additional info: Intubation TECHNIQUE: Imaging protocol: Radiologic exam of the chest. Views: 1 view. COMPARISON: CR XR CHEST PORTABLE 01/04/2022 5:46 AM FINDINGS: Tubes, catheters and devices: Endotracheal tube above the ying adjacent to the level of the clavicles. nasogastric tube extends below the diaphragm although the location of the tip not identified as it is outside of the [id number]. Pacemaker is present via a left subclavian approach. Lungs: Prominent and indistinct pulmonary vasculature as well as prominence of the interstitium representing edema.. Alveolar airspace disease/consolidation in the perihilar region and particularly within the lung bases left greater than right. Pleural spaces: Pleural effusions bilaterally left greater than right. Heart/Mediastinum: cardiac silhouette is enlarged. Bones/joints: No acute osseous abnormality IMPRESSION: Edema with perihilar and basilar consolidation and pleural effusions left greater than right.Findings mildly progressive from the earlier reference study stated above.
[2022-01-05 06:09] LABS: Basophils % 0.7 % (0.1-2.0); Eosinophils # 0.1 K/mm3 (0.0-0.4); Eosinophils % 1.9 % (0.1-12.0); Hematocrit 27.1 % (42.0-52.0); Hemoglobin 8.8 g/dL (14.1-18.0); Lymphocytes # 0.7 K/mm3 (0.7-4.5); Lymphocytes % 11.9 % (10-50); Mean Corpuscular HGB Conc 32.4 g/dL (31.8-35.4); Mean Corpuscular Hemoglobin 28.8 pg (27.0-31.2); Mean Corpuscular Volume 88.9 fl (80-94); Mean Platelet Volume 8.2 fl (7.4-10.4); Monocytes # 0.5 K/mm3 (0.1-1.0); Monocytes % 8.3 % (1.7-9.3); Neutrophils # 4.2 K/mm3 (1.8-7.8); Neutrophils % 77.3 % (37.0-80.0); Platelet Count 240 K/mm3 (142-424); Red Blood Count 3.05 M/mm3 (4.60-6.20); Red Cell Distribution Width 17.6 % (11.5-17.5); White Blood Count 5.5 K/mm3 (4.8-10.8)
[2022-01-05 06:25] LABS: Chloride 97 mmol/L (98-107); Potassium 3.3 mmoL/L (3.5-5.1); Sodium 134 mmol/L (136-145)
[2022-01-05 06:28] LABS: Anion Gap 11.3 mEq/L (5-15); Blood Urea Nitrogen 29 mg/dl (9-20); Carbon Dioxide 29 mmol/L (22.0-30.0); Creatinine Clearance Estimated 49 mL/min (50-200); Estimated Glomerular Filt Rate 53 ml/min (>60); GFR (African American) 64 ML/MIN (>60)
[2022-01-05 06:29] LABS: Calcium 7.7 mg/dl (8.4-10.2); Glucose 102 mg/dl (74-100)
--- NOTE | 2022-01-05 08:05 | PC.NURSE ---
RESP CARE NOTE: Pt placed in spontaneous breathing trial per Dr Winters order, at Pressure support of 5 cmH2O and PEEP of 5 cmH2O. Will continue to monitor.
--- NOTE | 2022-01-05 08:05 | PC.WOUNDNOTE ---
Assessment of pt coccyx during rounds/am assessment
--- NOTE | 2022-01-05 08:27 | P.PN_ITS ---
Subjective *Date: 01/05/22 *Time: 08:27 Interval history: Patient's granddaughter is in the room with him this morning. He is now off all drips. She is got him to raise his right arm, turn his head, open his eyes, and blink his eyes. He is on a spontaneous breathing trial. Medical Exam Vital signs and Labs for Last 24 Hours: Temp Pulse Resp BP Pulse Ox FiO2 100.0 F H 87 18 99/46 L 100 40 01/05/22 08:00 01/05/22 08:00 01/05/22 08:00 01/05/22 08:00 01/05/22 08:00 01/05/22 08:00 Laboratory Results - last 24 hr 01/04/22 06:00: Specimen Source [place], O2 % 40, ABG pH 7.48 H, ABG pCO2 33.2 L, ABG pO2 148.9 H, ABG HCO3 24.3, ABG Total CO2 25.3, ABG O2 Saturation 99, ABG Base Excess 0.8, Dominic Test N/a, Vent Rate 18, Tidal Volume 420, PEEP 5 01/05/22 05:55: WBC 5.5 D, RBC 3.05 L, Hgb 8.8 L, Hct 27.1 L, MCV 88.9, MCH 28.8, MCHC 32.4, RDW 17.6 H, Plt Count 240, MPV 8.2, Neut % (Auto) 77.3, Lymph % (Auto) 11.9, [place] % (Auto) 8.3, Eos % (Auto) 1.9, Baso % (Auto) 0.7, Neut # (Auto) 4.2, Lymph # (Auto) 0.7, [place] # (Auto) 0.5, Eos # (Auto) 0.1, Baso # (Auto) 0.0 01/05/22 05:55: Sodium 134 L, Potassium 3.3 L, Chloride 97 L, Carbon Dioxide 29, Anion Gap 11.3, BUN 29 H, Creatinine 1.30 H, Estimated Creat Clear 49, Estimated GFR 53 L, Est GFR ( Amer) 64, Glucose 102 H, Calcium 7.7 L I & O for Labs for Last 24 Hours: Intake & Output 01/02/22 01/03/22 01/04/22 01/05/22 11:59 11:59 11:59 11:59 Intake Total 954 / 963 886 / 886 Output Total 825 / 925 2165 / 2165 Balance 129 / 38 -1279 / -1279 Weight 161 lb 175 lb 8 oz 175 lb 14.4 oz Microbiology Reports for the Last 24 Hours: Microbiology 01/03/22 15:15 Urine,Catheterized Urine Culture - Preliminary NO GROWTH AFTER 24 HOURS Comment:: making movements and trying to follow commands Respiratory: Present patient mechanically ventilated Comment:: Paced GI: Present soft; Absent distention or tenderness Extremities: Present edema (lower extremity edema improving) Skin: Present intact and warm Comment:: Seems to be waking up Assessment and Plan *Assessment and plan (1) Cardiac arrest: Status: Acute Category: Medical Code(s): I46.9 - Cardiac arrest, cause unspecified (2) Status post biventricular cardiac pacemaker insertion: Status: Acute Category: Surgical Code(s): Z95.0 - Presence of cardiac pacemaker (3) Mild aortic stenosis: Status: Acute Category: Medical Code(s): I35.0 - Nonrheumatic aortic (valve) stenosis (4) CAD (coronary artery disease): Status: Acute Category: Medical Code(s): I25.10 - Atherosclerotic heart disease of [place] coronary artery without angina pectoris (5) Chronic anemia: Status: Acute Category: Medical Code(s): D64.9 - Anemia, unspecified (6) PAF (paroxysmal atrial fibrillation): Status: Acute Category: Medical Code(s): I48.0 - Paroxysmal atrial fibrillation Plan Cardiology and pulmonology to follow today. Will continue SBT and hopefully can extubate today.
--- NOTE | 2022-01-05 09:00 | EXP.ACUTE.PN ---
Subjective *Date: 01/14/22 *Time: 06:16 Medical Exam Vital signs and Labs for Last 24 Hours: Temp Pulse Resp BP Pulse Ox FiO2 100.0 F H 87 18 99/46 L 100 40 01/05/22 08:00 01/05/22 08:00 01/05/22 08:00 01/05/22 08:00 01/05/22 08:00 01/05/22 08:00 Laboratory Results - last 24 hr 01/05/22 05:55: WBC 5.5 D, RBC 3.05 L, Hgb 8.8 L, Hct 27.1 L, MCV 88.9, MCH 28.8, MCHC 32.4, RDW 17.6 H, Plt Count 240, MPV 8.2, Neut % (Auto) 77.3, Lymph % (Auto) 11.9, [place] % (Auto) 8.3, Eos % (Auto) 1.9, Baso % (Auto) 0.7, Neut # (Auto) 4.2, Lymph # (Auto) 0.7, [place] # (Auto) 0.5, Eos # (Auto) 0.1, Baso # (Auto) 0.0 01/05/22 05:55: Sodium 134 L, Potassium 3.3 L, Chloride 97 L, Carbon Dioxide 29, Anion Gap 11.3, BUN 29 H, Creatinine 1.30 H, Estimated Creat Clear 49, Estimated GFR 53 L, Est GFR ( Amer) 64, Glucose 102 H, Calcium 7.7 L I & O for Labs for Last 24 Hours: Intake & Output 01/02/22 01/03/22 01/04/22 01/05/22 11:59 11:59 11:59 11:59 Intake Total 954 / 963 886 / 886 Output Total 825 / 925 2225 / 2225 Balance 129 / 38 -1339 / -1339 Weight 161 lb 175 lb 8 oz 175 lb 14.4 oz Microbiology Reports for the Last 24 Hours: Microbiology 01/03/22 15:15 Urine,Catheterized Urine Culture - Preliminary NO GROWTH AFTER 24 HOURS
--- NOTE | 2022-01-05 09:02 | PC.NURSE ---
Dr Winters called for update of pt at approx 0840. labs reviewed, xray reviewed. order received for lasix 80mg times 1 now.
[2022-01-05 09:16] LABS: ABG Base Excess 4.9 mmol/L (-2.4-2.3); ABG HCO3 27.9 mmhg (22.0-26.0); ABG Oxygen Saturation 99 % (90-100); ABG PCO2 35.5 mmhg (35.0-45.0); ABG PH 7.51 mmol/L (7.35-7.45); ABG PO2 141.7 mmhg (80-100)
[2022-01-05 09:21] LABS: Oxygen 40 %; PEEP 5; Pressure Support 5; Source A LINE
--- NOTE | 2022-01-05 09:37 | PC.NURSE ---
Per Dr Kapadia, pt is to receive 1 liter of ivf then drip is to be discontinued. 929
--- NOTE | 2022-01-05 09:41 | EXP.CARD.PN ---
Subjective Subjective Date: 01/05/22 Time: 08:00 Principal diagnosis: s/p cardiac arrest and AICD upgrade/ cardiogenic shock Interval history: Off of epi and maintaining pressure. More responsive today, opens eyes to name and follows some of granddaughter's commands. Pupils are normal, left greater then right and sluggish. on sbt currently. adequate urine output noted. Hyponetremia and renal function improving. chest xray from this am shows mildly progressive edema with perihilar and basilar consolidation and pleural effusions. Patient receiving IV lasix. LE edema has greatly improved. Exam Data for Last 24 hours Vital signs and Labs for Last 24 Hours: Temp Pulse Resp BP Pulse Ox FiO2 100.0 F H 87 18 99/46 L 100 40 01/05/22 08:00 01/05/22 08:00 01/05/22 08:00 01/05/22 08:00 01/05/22 08:00 01/05/22 08:00 Laboratory Results - last 24 hr 01/05/22 05:55: WBC 5.5 D, RBC 3.05 L, Hgb 8.8 L, Hct 27.1 L, MCV 88.9, MCH 28.8, MCHC 32.4, RDW 17.6 H, Plt Count 240, MPV 8.2, Neut % (Auto) 77.3, Lymph % (Auto) 11.9, [place] % (Auto) 8.3, Eos % (Auto) 1.9, Baso % (Auto) 0.7, Neut # (Auto) 4.2, Lymph # (Auto) 0.7, [place] # (Auto) 0.5, Eos # (Auto) 0.1, Baso # (Auto) 0.0 01/05/22 05:55: Sodium 134 L, Potassium 3.3 L, Chloride 97 L, Carbon Dioxide 29, Anion Gap 11.3, BUN 29 H, Creatinine 1.30 H, Estimated Creat Clear 49, Estimated GFR 53 L, Est GFR ( Amer) 64, Glucose 102 H, Calcium 7.7 L 01/05/22 06:00: Specimen Source A line, O2 % 40, ABG pH 7.51 H, ABG pCO2 35.5, ABG pO2 141.7 H, ABG HCO3 27.9 H, ABG Total CO2 29.0 H, ABG O2 Saturation 99, ABG Base Excess 4.9 H, Dominic Test N/a, PEEP 5 I & O for Last 24 hours: Intake & Output 01/02/22 01/03/22 01/04/22 01/05/22 23:59 23:59 23:59 23:59 Intake Total 512 / 527 1040 / 1113 288 / 288 Output Total 320 / 355 2175 / 2265 555 / 555 Balance 192 / 172 -1135 / -1152 -267 / -267 Weight 170 lb 3 oz 175 lb 8 oz 175 lb 14.4 oz Microbiology Reports for the Last 24 Hours: Microbiology 01/03/22 15:15 Urine,Catheterized Urine Culture - Preliminary NO GROWTH AFTER 24 HOURS Constitutional Constitutional: no acute distress Comments: currently intubated- on sbt pale warm *Routine HEENT Exam Comments: fixed pinpoint pupils noted Routine Chest/Breast/Axilla Exam Comments: left anterior hematoma noted from device upgrade *Routine Respiratory Exam Respiratory: Present symmetric chest movement Comments: Bilateral wheezes and rhonchi noted but stable from yesterday remains intubated *Routine Cardiovascular Exam Comments: paced with occasional pac *Routine Abdominal Exam Abdominal: Present soft and normoactive bowel sounds; Absent tenderness *Routine Extremities Exam Extremities: Present pallor Comments: Edema has significantly improved, legs are warm and pale. *Routine Skin Exam Skin: Present intact, dry and warm *Routine Neurological Exam Comments: Responds to painful stimuli, opens eyes to name, follows some of grand daughter's commands. Pupils slugglish Detailed Neck Exam: Thyroids Thyroid: Absent bruit Progress Note: A&P Assessment and plan (1) Cardiac arrest: Status: Acute (2) Status post biventricular cardiac pacemaker insertion: Status: Acute (3) Mild aortic stenosis: Status: Acute (4) CAD (coronary artery disease): Status: Acute (5) Chronic anemia: Status: Acute (6) PAF (paroxysmal atrial fibrillation): Status: Acute Assessment and Plan Assessment and Plan for All Diagnoses:: S/p acute respiratory failure/cardiac arrest/Intubation/cardiogenic shock -Currently off of levo and epi drip. -BP remains low but stable and close to patient's baseline. 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
--- NOTE | 2022-01-05 09:43 | EXP.PULM.PN ---
Subjective *Date: 01/05/22 *Time: 10:56 Interval history: No acute respiratory events overnight. Continues to remain intubated. Pulmonology Exam Inpatient Vital signs and Labs for Last 24 Hours: Temp Pulse Resp BP Pulse Ox FiO2 100.0 F H 87 18 99/46 L 100 40 01/05/22 08:00 01/05/22 08:00 01/05/22 08:00 01/05/22 08:00 01/05/22 08:00 01/05/22 08:00 Laboratory Results - last 24 hr 01/05/22 05:55: WBC 5.5 D, RBC 3.05 L, Hgb 8.8 L, Hct 27.1 L, MCV 88.9, MCH 28.8, MCHC 32.4, RDW 17.6 H, Plt Count 240, MPV 8.2, Neut % (Auto) 77.3, Lymph % (Auto) 11.9, [place] % (Auto) 8.3, Eos % (Auto) 1.9, Baso % (Auto) 0.7, Neut # (Auto) 4.2, Lymph # (Auto) 0.7, [place] # (Auto) 0.5, Eos # (Auto) 0.1, Baso # (Auto) 0.0 01/05/22 05:55: Sodium 134 L, Potassium 3.3 L, Chloride 97 L, Carbon Dioxide 29, Anion Gap 11.3, BUN 29 H, Creatinine 1.30 H, Estimated Creat Clear 49, Estimated GFR 53 L, Est GFR ( Amer) 64, Glucose 102 H, Calcium 7.7 L 01/05/22 06:00: Specimen Source A line, O2 % 40, ABG pH 7.51 H, ABG pCO2 35.5, ABG pO2 141.7 H, ABG HCO3 27.9 H, ABG Total CO2 29.0 H, ABG O2 Saturation 99, ABG Base Excess 4.9 H, Dominic Test N/a, PEEP 5 I & O for Labs for Last 24 Hours: Intake & Output 01/02/22 01/03/22 01/04/22 01/05/22 23:59 23:59 23:59 23:59 Intake Total 512 / 527 1040 / 1113 288 / 288 Output Total 320 / 355 2175 / 2265 555 / 555 Balance 192 / 172 -1135 / -1152 -267 / -267 Weight 170 lb 3 oz 175 lb 8 oz 175 lb 14.4 oz Microbiology Reports for the Last 24 Hours: Microbiology 01/03/22 15:15 Urine,Catheterized Urine Culture - Preliminary NO GROWTH AFTER 24 HOURS Head: Present normocephalic and atraumatic ENT: Present normal exam and normal oropharynx Neck: Present normal inspection Respiratory: Present patient mechanically ventilated, respiratory distress, crackles and symmetric chest movement; Absent wheezes Comment:: Hematoma around pacemaker site, improving Cardiac: Present Irregularly Regular, S1/S2, Tachycardia and radial pulses present GI: Present soft and distention; Absent tenderness or guarding Skin: Present intact; Absent cyanosis or jaundice Neuro: Present awake; Absent alert or oriented x 3 Extremities: Present normal inspection and edema; Absent clubbing or cyanosis Psychiatric: Present normal affect and cooperative Assessment and Plan *Assessment and plan (1) On mechanically assisted ventilation: Status: Acute Category: Medical Code(s): Z99.11 - Dependence on respirator [ventilator] status (2) Shock: Status: Acute Category: Medical Code(s): R57.9 - Shock, unspecified Plan Mr. Galaviz is a 81-year-old male signal history of CAD, CHF EF 20 to 25%, A. fib, pulmonary hypertension with a wedge 25 presented for an elective procedure for biventricular pacemaker installation, had a a hypoxic event followed by cardiac arrest status post CPR with return of circulation needing intubation mechanical ventilator and pressor support and pulmonary was called for further management. #Mechanical ventilatory support #Acute hypoxic respiratory failure Plan: Continued improvement in mental status. Following commands more appropriately than yesterday. Patient still appear weak not completely awake to facilitate extubation. Successful SBT this morning. We will continue to monitor awaiting improving mentation for possible extubation. Successfully passed SBT. Not awake completely to facilitate extubation. We will continue to monitor closely. Continue mechanical ventilator support, currently minimal vent settings, PEEP of 5 FiO2 40% and tidal volume of 420 and a rate of 16. ABG from this morning 1 hour post SBT showed evidence of respiratory alkalosis. Chest x-ray from this morning reviewed, continued to bilateral lower lobe infiltrates right greater than left. Improving pleural effusions especially on the right side. No significant change in airspace di
--- NOTE | 2022-01-05 10:14 | CA_ITS ---
APPROVED REPORT EXAM: Limited 2D Echocardiogram Entry Processor: Cora Rice RVT Ht: 5 ft 7 in Wt: 175lbs BSA: 1.91 BP: 99/46 mmHg Indications: EF CHECK,EF OF 20% ON 01/03/22,PT INTUBATED,S/P BI-V PLACEMENT,CAD M-Mode Dimensions RVDd 2.33 cm (0.9-2.6) LA Diam 5.27 cm (1.9-4.0) LVDd 5.29 cm (3.5-5.7) Ao Diam 3.30 cm (2.0-3.7) LVDs 4.79 cm (3.5-5.7) IVSd 0.39 cm (0.6-1.1) PWd 0.75 cm (0.6-1.1) EF (Teich) 20.60% FS 9.50% EDV (Teich) 134.80 mL ESV (Teich) 107.00 mL Conclusion 1. Limited echocardiogram was obtained to evaluate left ventricular systolic function, estimated ejection fraction 20% left ventricle is globally hypokinetic. 2. No significant pericardial effusion noted. Electronically signed by : Daniel Bryan MD 01/05/2022 13:42:22
--- NOTE | 2022-01-05 11:20 | DIET.NUTRFU ---
Spoke to nursing today, tubefeeding is on hold d/t high residuals of 60ml. He is receiving bolus fluid only 1 bag of KCL/NaCl due to low potassium of 3.3 and sodium 134L. BUN and Cr improved from yesterday slightly at 29H/1.3. Received IV lasix yesterday with urine output of 2175ml, continues again today. He still has +3 edema to extremities. Continues to be intubated, when feasible restarted TF and advance as tolerated. Still intubated today, but provider's report indicates more responsive today. Breathing trails in place. If extubated, swallow eval and advance appropriately.
--- NOTE | 2022-01-05 13:20 | PC.NURSE ---
notified dr Winters of pt urine containing blood now. per Dr Winters place vent back in ac mode at 1400
--- NOTE | 2022-01-05 13:56 | PC.NURSE ---
RESP CARE NOTE: Pt placed back into Assist Control mode of ventilation Vt 420 ml, FIO2 40%, Rate of 18bpm, Peep of [address] Winters verbal order.
[2022-01-05 15:02] LABS: Basophils # 0.1 K/mm3 (0-0.2); Basophils % 0.8 % (0.1-2.0); Eosinophils # 0.1 K/mm3 (0.0-0.4); Eosinophils % 1.8 % (0.1-12.0); Hematocrit 26.9 % (42.0-52.0); Lymphocytes # 1.1 K/mm3 (0.7-4.5); Lymphocytes % 16.9 % (10-50); Mean Corpuscular HGB Conc 33.2 g/dL (31.8-35.4); Mean Corpuscular Volume 87.3 fl (80-94); Mean Platelet Volume 7.9 fl (7.4-10.4); Monocytes # 0.4 K/mm3 (0.1-1.0); Monocytes % 6.6 % (1.7-9.3); Neutrophils # 4.7 K/mm3 (1.8-7.8); Neutrophils % 73.9 % (37.0-80.0); Platelet Count 215 K/mm3 (142-424); Red Blood Count 3.09 M/mm3 (4.60-6.20); Red Cell Distribution Width 17.5 % (11.5-17.5); White Blood Count 6.4 K/mm3 (4.8-10.8)
--- NOTE | 2022-01-05 15:41 | PC.NURSE ---
[address] Hedrick that pt urine was bloody, new orders STAT CBC and irrigate bladder. 1418 notified No that pt bp was 70's and 80's sys. ok to restart epi drip as needed. 1420 epi drip restarted. pt bp systolic bp improved from the upper 70's to low 100's with epi at 1mcg. 1500 epi drip dc r/t bp being 128/64
--- NOTE | 2022-01-05 17:55 | PC.NURSE ---
pt has remained intubated this shift. he will follow some simple commands, but cannot consistently follow all commands. pt has edema noted to bilateral elbows, bilateral legs and feet and left hand. pt has art line in place to left wrist, pt has pacer site noted to left chest. pt has stage 2 on coccyx. fine crackles noted in bases, bowel sounds active. family has been at bedside throughout the shift and has occasionally refused oral care r/t pt resting well. nad noted.
[2022-01-06] VITALS (41 sets, daily range): BP systolic 75–122; BP diastolic 49–67; PULSE 70–98; RESP 18–21; TEMP 36.6–37.2; O2SAT 99–100; BMI 23.9
--- NOTE | 2022-01-06 04:51 | PC.NURSE ---
Pt has been opening eyes spontaneously, pupils are reactive but sluggish, pt seems to turn head towards toward stimuli and has turned head when door has been opened, moving all extremities, did become agitated around 0200, at bedside and helped to calm pt, remains paced on telemetry, vent settings are AC mode, FiO2 40%, Rate 18, TV 420, PEEP 5, F/C draining to bedside with hematuria, MD aware, total urine output so far this shift is 425 mL, pt turn and repositioned this shift, oral care provided, dressing to coccyx changed this shift
--- NOTE | 2022-01-06 06:00 | XR_ITS ---
PROCEDURE INFORMATION: Exam: XR Chest Exam date and time: 01/06/2022 5:43 AM Age: 81 years old Clinical indication: Device placement; Ett placement (vent status); Additional info: Intubation check status TECHNIQUE: Imaging protocol: Radiologic exam of the chest. Views: 1 view. COMPARISON: CR XR CHEST PORTABLE 01/05/2022 5:38 AM FINDINGS: Tubes, catheters and devices: Transvenous pacemaker leads in the heart. Enteric tube terminates 3.8 cm above the ying. Enteric tube is seen within the stomach Lungs: Opacities in both mid lung regions and both bases may represent atelectasis or pneumonia. . Pleural spaces: There may be a small pneumothorax in the lateral aspect of the right hemithorax. It measures 9-10 mm in width. The pleura is calcified. It had this appearance since December 18.. There may be mild left pleural effusion. Heart/Mediastinum: Stable cardiomegaly Bones/joints: Median sternotomy IMPRESSION: 1. There may be a small pneumothorax in the lateral aspect of the right hemithorax. It measures 9-10 mm in width. The pleura is calcified. It had this appearance since December 18 2. Opacities in both mid lung regions and both bases may represent atelectasis or pneumonia. . 3. There may be mild left pleural effusion.
[2022-01-06 07:22] LABS: Basophils % 0.8 % (0.1-2.0); Eosinophils # 0.1 K/mm3 (0.0-0.4); Eosinophils % 1.7 % (0.1-12.0); Hematocrit 29.5 % (42.0-52.0); Hemoglobin 9.5 g/dL (14.1-18.0); Lymphocytes # 0.7 K/mm3 (0.7-4.5); Lymphocytes % 17.6 % (10-50); Mean Corpuscular HGB Conc 32.3 g/dL (31.8-35.4); Mean Corpuscular Hemoglobin 28.7 pg (27.0-31.2); Mean Corpuscular Volume 89.1 fl (80-94); Mean Platelet Volume 8.3 fl (7.4-10.4); Monocytes # 0.3 K/mm3 (0.1-1.0); Monocytes % 7.8 % (1.7-9.3); Neutrophils % 72.1 % (37.0-80.0); Platelet Count 184 K/mm3 (142-424); Red Blood Count 3.31 M/mm3 (4.60-6.20); Red Cell Distribution Width 17.3 % (11.5-17.5); White Blood Count 4.2 K/mm3 (4.8-10.8)
[2022-01-06 08:04] LABS: Chloride 98 mmol/L (98-107); Potassium 3.1 mmoL/L (3.5-5.1); Sodium 137 mmol/L (136-145)
[2022-01-06 08:07] LABS: Anion Gap 14.1 mEq/L (5-15); Blood Urea Nitrogen 24 mg/dl (9-20); Calcium 7.8 mg/dl (8.4-10.2); Carbon Dioxide 28 mmol/L (22.0-30.0); Creatinine Clearance Estimated 46 mL/min (50-200); Estimated Glomerular Filt Rate 58 ml/min (>60); GFR (African American) 70 ML/MIN (>60); Glucose 76 mg/dl (74-100)
--- NOTE | 2022-01-06 09:19 | PC.NURSE ---
received call from Dr. Winters with new orders: HOLD Lovenox due to hematuria, Lasix 80mg IV x 1 dose, and to obtain ABG @ noon as pt is now on SBT.
[2022-01-06 12:16] LABS: ABG Base Excess 1.4 mmol/L (-2.4-2.3); ABG Oxygen Saturation 99 % (90-100); ABG PCO2 35.1 mmhg (35.0-45.0); ABG PH 7.47 mmol/L (7.35-7.45); ABG PO2 135.7 mmhg (80-100); ABG TCO2 26.1 mmhg (23-27)
--- NOTE | 2022-01-06 12:16 | EXP.ACUTE.PN ---
Subjective *Date: 01/06/22 *Time: 12:16 Interval history: He appears to be awake and alert and intact neurologically. He will give the thumbs up sign and response to questions. His has said that he communicates as best he can being intubated.He is able to ventilate on his own. A blood gas is pending.Dr. Winters has been very attentive to his status. Hemoglobin has come up to 9.5. White blood cell count is 4200. Sodium is 137. Potassium remains low at 3.1. Chest x-ray indicates a small right pneumothorax which has been present since December 18. He has some atelectasis that is demonstrated on chest x-ray. Medical Exam Vital signs and Labs for Last 24 Hours: Temp Pulse Resp BP Pulse Ox FiO2 97.8 F 70 20 111/56 L 99 40 01/06/22 11:37 01/06/22 12:01 01/06/22 12:00 01/06/22 12:00 01/06/22 12:01 01/06/22 12:01 Laboratory Results - last 24 hr 01/05/22 14:53: WBC 6.4, RBC 3.09 L, Hgb 9.0 L, Hct 26.9 L, MCV 87.3, MCH 29.0, MCHC 33.2, RDW 17.5, Plt Count 215, MPV 7.9, Neut % (Auto) 73.9, Lymph % (Auto) 16.9, [place] % (Auto) 6.6, Eos % (Auto) 1.8, Baso % (Auto) 0.8, Neut # (Auto) 4.7, Lymph # (Auto) 1.1, [place] # (Auto) 0.4, Eos # (Auto) 0.1, Baso # (Auto) 0.1 01/06/22 06:40: WBC 4.2 L D, RBC 3.31 L, Hgb 9.5 L, Hct 29.5 L, MCV 89.1, MCH 28.7, MCHC 32.3, RDW 17.3, Plt Count 184, MPV 8.3, Neut % (Auto) 72.1, Lymph % (Auto) 17.6, [place] % (Auto) 7.8, Eos % (Auto) 1.7, Baso % (Auto) 0.8, Neut # (Auto) 3.0, Lymph # (Auto) 0.7, [place] # (Auto) 0.3, Eos # (Auto) 0.1, Baso # (Auto) 0.0 01/06/22 06:40: Sodium 137, Potassium 3.1 L, Chloride 98, Carbon Dioxide 28, Anion Gap 14.1, BUN 24 H, Creatinine 1.20, Estimated Creat Clear 46, Estimated GFR 58 L, Est GFR ( Amer) 70, Glucose 76, Calcium 7.8 L I & O for Labs for Last 24 Hours: Intake & Output 01/04/22 01/05/22 01/06/22 01/07/22 11:59 11:59 11:59 11:59 Intake Total 954 / 963 1187 / 1286 1220 / 1220 Output Total 825 / 925 2685 / 2815 1713 / 2068 355 / 355 Balance 129 / 38 -1498 / -1529 -493 / -848 -355 / -355 Weight 175 lb 8 oz 175 lb 14.4 oz 154 lb 6 oz Microbiology Reports for the Last 24 Hours: Microbiology 01/03/22 15:50 Sputum - Endotracheal Tube Aspirate Gram Stain - Final 01/03/22 15:50 Sputum - Endotracheal Tube Aspirate Sputum Culture - Preliminary 01/03/22 18:10 Blood Blood Culture - Preliminary NO GROWTH AFTER 48 HOURS 01/03/22 17:00 Blood Blood Culture - Preliminary NO GROWTH AFTER 48 HOURS 01/03/22 15:15 Urine,Catheterized Urine Culture - Final NO GROWTH AFTER 48 HOURS Eyes: Present other (Pupils equal, round, reactive to light and accommodation) ENT: Present other (ET tube in place) Neck: Present normal inspection Respiratory: Present patient mechanically ventilated; Absent respiratory distress Cardiac: Present Reg Rate and Rhythm (Paced rhythm) and Systolic Murmur GI: Present soft; Absent tenderness (male): Present other ([place] catheter in place. Lovenox has been discontinued due to hematuria which is improving.) Extremities: Present full ROM and edema Skin: Present intact Neuro: Present alert (He seems intact) and moves all extremities Assessment and Plan *Assessment and plan (1) Status post biventricular cardiac pacemaker insertion: Status: Acute Category: Surgical Code(s): Z95.0 - Presence of cardiac pacemaker (2) On mechanically assisted ventilation: Status: Acute Category: Medical Code(s): Z99.11 - Dependence on respirator [ventilator] status (3) Chronic anemia: Status: Acute Category: Medical Code(s): D64.9 - Anemia, unspecified (4) CAD (coronary artery disease): Status: Acute Category: Medical Code(s): I25.10 - Atherosclerotic heart disease of [place] coronary artery without angina pectoris (5) Mild aortic stenosis: Status: Acute Category: Med
[2022-01-06 12:17] LABS: Oxygen 40% %
[2022-01-06 12:18] LABS: Allen's Test Non Applicable; PEEP 5; Pressure Support 5; Source A LINE
--- NOTE | 2022-01-06 12:39 | P.PN_ITS ---
Subjective *Date: 01/06/22 *Time: 12:39 Medical Exam Vital signs and Labs for Last 24 Hours: Temp Pulse Resp BP Pulse Ox FiO2 97.8 F 70 20 111/56 L 99 40 01/06/22 11:37 01/06/22 12:01 01/06/22 12:00 01/06/22 12:00 01/06/22 12:01 01/06/22 12:01 Laboratory Results - last 24 hr 01/05/22 14:53: WBC 6.4, RBC 3.09 L, Hgb 9.0 L, Hct 26.9 L, MCV 87.3, MCH 29.0, MCHC 33.2, RDW 17.5, Plt Count 215, MPV 7.9, Neut % (Auto) 73.9, Lymph % (Auto) 16.9, [place] % (Auto) 6.6, Eos % (Auto) 1.8, Baso % (Auto) 0.8, Neut # (Auto) 4.7, Lymph # (Auto) 1.1, [place] # (Auto) 0.4, Eos # (Auto) 0.1, Baso # (Auto) 0.1 01/06/22 06:40: WBC 4.2 L D, RBC 3.31 L, Hgb 9.5 L, Hct 29.5 L, MCV 89.1, MCH 28.7, MCHC 32.3, RDW 17.3, Plt Count 184, MPV 8.3, Neut % (Auto) 72.1, Lymph % (Auto) 17.6, [place] % (Auto) 7.8, Eos % (Auto) 1.7, Baso % (Auto) 0.8, Neut # (Auto) 3.0, Lymph # (Auto) 0.7, [place] # (Auto) 0.3, Eos # (Auto) 0.1, Baso # (Auto) 0.0 01/06/22 06:40: Sodium 137, Potassium 3.1 L, Chloride 98, Carbon Dioxide 28, Anion Gap 14.1, BUN 24 H, Creatinine 1.20, Estimated Creat Clear 46, Estimated GFR 58 L, Est GFR ( Amer) 70, Glucose 76, Calcium 7.8 L 01/06/22 12:00: Specimen Source A line, O2 % 40%, ABG pH 7.47 H, ABG pCO2 35.1, ABG pO2 135.7 H, ABG HCO3 25.0, ABG Total CO2 26.1, ABG O2 Saturation 99, ABG Base Excess 1.4, Dominic Test Non applicable, PEEP 5 I & O for Labs for Last 24 Hours: Intake & Output 01/03/22 01/04/22 01/05/22 01/06/22 23:59 23:59 23:59 23:59 Intake Total 512 / 527 1040 / 1113 1653 / 1729 156 / 156 Output Total 320 / 355 2175 / 2265 2068 / 2118 1015 / 1015 Balance 192 / 172 -1135 / -1152 -415 / -389 -859 / -859 Weight 77.196 kg 79.605 kg 79.787 kg 70.023 kg Microbiology Reports for the Last 24 Hours: Microbiology 01/03/22 15:50 Sputum - Endotracheal Tube Aspirate Gram Stain - Final 01/03/22 15:50 Sputum - Endotracheal Tube Aspirate Sputum Culture - P reliminary 01/03/22 18:10 Blood Blood Culture - Preliminary NO GROWTH AFTER 48 HOURS 01/03/22 17:00 Blood Blood Culture - Preliminary NO GROWTH AFTER 48 HOURS 01/03/22 15:15 Urine,Catheterized Urine Culture - Final NO GROWTH AFTER 48 HOURS The patient's infection will respond to the chosen ABx?: Yes Is the patient receiving the right drug, dose, and route?: Yes Could a more targeted ABx be ordered?: No
--- NOTE | 2022-01-06 17:40 | PC.NURSE ---
Contacted Dr. Winters for hypotension 75/49 (57).
--- NOTE | 2022-01-06 17:45 | PC.NURSE ---
Received new order from Dr. Winters: 500mL LR bolus now.
--- NOTE | 2022-01-06 18:54 | PC.NURSE ---
shift summary: GCS 11T (6T). Is alert and follows all commands. Continues on mechanical ventilation with the following settings: 40%, 18, 440, 5/-. Completed SBT for 5hrs today. Will attempt SBT again @ 8am per Dr. Winters. AV paced on tele with rate 70. Arterial line is positional but continues to read accurately when compared to cuff pressure. Hypotension noted towards end of shift but responded well to LR bolus. Continues NPO status. NGT clamped. [place] catheter with markell UOP. Hematuria noted at beginning of shift. Has diuresed over 1L with Lasix 80mg IV. BLE SCDs on. Full head to toe bath given. Stage II to coccyx with butterfly dressing in place. No longer has BLE edema. RUE edema continues. No BM this shift.
--- NOTE | 2022-01-06 20:45 | PC.NURSE ---
notified MD Ayers that pt's arterial line has no pleth regardless of wrist placement and does not flush or draw, MD Ayers stated okay to remove art line; art line removed, held pressure for 5 minutes, and covered with gauze and tegaderm dressing
[2022-01-07] VITALS (33 sets, daily range): BP systolic 89–120; BP diastolic 49–87; PULSE 70–121; RESP 11–38; TEMP 36.6–37.4; O2SAT 94–100; BMI 25.1
[2022-01-07 07:53] LABS: Basophils % 0.7 % (0.1-2.0); Eosinophils # 0.1 K/mm3 (0.0-0.4); Eosinophils % 1.3 % (0.1-12.0); Hematocrit 27.4 % (42.0-52.0); Hemoglobin 8.5 g/dL (14.1-18.0); Lymphocytes # 0.8 K/mm3 (0.7-4.5); Lymphocytes % 17.7 % (10-50); Mean Corpuscular HGB Conc 31.2 g/dL (31.8-35.4); Mean Corpuscular Hemoglobin 28.3 pg (27.0-31.2); Mean Corpuscular Volume 90.6 fl (80-94); Mean Platelet Volume 8.8 fl (7.4-10.4); Monocytes # 0.4 K/mm3 (0.1-1.0); Neutrophils # 3.4 K/mm3 (1.8-7.8); Neutrophils % 72.3 % (37.0-80.0); Platelet Count 199 K/mm3 (142-424); Red Blood Count 3.02 M/mm3 (4.60-6.20); Red Cell Distribution Width 17.3 % (11.5-17.5); White Blood Count 4.7 K/mm3 (4.8-10.8)
[2022-01-07 07:54] LABS: Chloride 100 mmol/L (98-107); Sodium 138 mmol/L (136-145)
[2022-01-07 07:55] LABS: Potassium 3.5 mmoL/L (3.5-5.1)
[2022-01-07 07:57] LABS: Blood Urea Nitrogen 28 mg/dl (9-20); Creatinine Clearance Estimated 46 mL/min (50-200); Estimated Glomerular Filt Rate 58 ml/min (>60); GFR (African American) 70 ML/MIN (>60)
[2022-01-07 07:58] LABS: Anion Gap 13.5 mEq/L (5-15); Calcium 8.4 mg/dl (8.4-10.2); Carbon Dioxide 28 mmol/L (22.0-30.0); Glucose 77 mg/dl (74-100)
--- NOTE | 2022-01-07 08:15 | XR_ITS ---
PROCEDURE INFORMATION: Exam: XR Chest Exam date and time: 01/07/2022 8:55 AM Age: 81 years old Clinical indication: Condition or disease; Patient HX: Daily intubation xray; Additional info: Daily while intubated TECHNIQUE: Imaging protocol: Radiologic exam of the chest. Views: 1 view. COMPARISON: CR XR CHEST PORTABLE 01/06/2022 5:43 AM FINDINGS: Tubes, catheters and devices: Endotracheal tube terminates approximately 5.2 cm above the ying. NG tube passes into the stomach. Cardiac rhythm maintenance device is in place. Lungs: Slightly improved patchy bibasilar airspace opacities. Pleural spaces: Similar calcified pleural plaques. Probable small bilateral pleural effusions. No definite pneumothorax. Heart/Mediastinum: Changes of prior CABG. Cardiomegaly. Bones/joints: Unremarkable. IMPRESSION: 1. Slightly improved patchy bibasilar airspace opacities. 2. Stable positioning of support apparatus.
--- NOTE | 2022-01-07 09:01 | EXP.ACUTE.PN ---
Subjective *Date: 01/07/22 *Time: 09:01 Interval history: He is still intubated but went for 5 hours breathing on his own yesterday. Chest x-ray is pending from this morning as well as a ABG. Dr. Winters has been in close contact. Extubation today is likely. Medical Exam Vital signs and Labs for Last 24 Hours: Temp Pulse Resp BP Pulse Ox FiO2 98.7 F 95 H 18 89/50 L 100 40 01/07/22 07:54 01/07/22 08:00 01/07/22 08:00 01/07/22 08:00 01/07/22 08:12 01/07/22 08:12 Laboratory Results - last 24 hr 01/06/22 12:00: Specimen Source A line, O2 % 40%, ABG pH 7.47 H, ABG pCO2 35.1, ABG pO2 135.7 H, ABG HCO3 25.0, ABG Total CO2 26.1, ABG O2 Saturation 99, ABG Base Excess 1.4, Dominic Test Non applicable, PEEP 5 01/07/22 07:10: WBC 4.7 L, RBC 3.02 L, Hgb 8.5 L, Hct 27.4 L, MCV 90.6, MCH 28.3, MCHC 31.2 L, RDW 17.3, Plt Count 199, MPV 8.8, Neut % (Auto) 72.3, Lymph % (Auto) 17.7, [place] % (Auto) 8.0, Eos % (Auto) 1.3, Baso % (Auto) 0.7, Neut # (Auto) 3.4, Lymph # (Auto) 0.8, [place] # (Auto) 0.4, Eos # (Auto) 0.1, Baso # (Auto) 0.0 01/07/22 07:10: Sodium 138, Potassium 3.5, Chloride 100, Carbon Dioxide 28, Anion Gap 13.5, BUN 28 H, Creatinine 1.20, Estimated Creat Clear 46, Estimated GFR 58 L, Est GFR ( Amer) 70, Glucose 77, Calcium 8.4 I & O for Labs for Last 24 Hours: Intake & Output 01/04/22 01/05/22 01/06/22 01/07/22 11:59 11:59 11:59 11:59 Intake Total 954 / 963 1187 / 1286 1220 / 1220 850 / 850 Output Total 825 / 925 2685 / 2815 1713 / 2068 1437 / 1437 Balance 129 / 38 -1498 / -1529 -493 / -848 -587 / -587 Weight 175 lb 8 oz 175 lb 14.4 oz 154 lb 6 oz 162 lb Microbiology Reports for the Last 24 Hours: Microbiology 01/03/22 15:50 Sputum - Endotracheal Tube Aspirate Gram Stain - Final 01/03/22 15:50 Sputum - Endotracheal Tube Aspirate Sputum Culture - Final Normal Respiratory Vandana Head: Present normocephalic Neck: Present normal inspection Respiratory: Present decreased breath sounds; Absent rales or respiratory distress Cardiac: Present Reg Rate and Rhythm (Paced) GI: Present soft; Absent tenderness Rectal (male): Present deferred (male): Present other ([place] in place with blood-tinged urine) Extremities: Present edema Skin: Present lesions Neuro: Present Motor Function Intact and moves all extremities Assessment and Plan *Assessment and plan (1) Status post biventricular cardiac pacemaker insertion: Status: Acute Category: Surgical Code(s): Z95.0 - Presence of cardiac pacemaker (2) Hypokalemia: Status: Acute Category: Medical Code(s): E87.6 - Hypokalemia (3) On mechanically assisted ventilation: Status: Acute Category: Medical Code(s): Z99.11 - Dependence on respirator [ventilator] status (4) Chronic anemia: Status: Acute Category: Medical Code(s): D64.9 - Anemia, unspecified (5) CAD (coronary artery disease): Status: Acute Category: Medical Code(s): I25.10 - Atherosclerotic heart disease of [place] coronary artery without angina pectoris (6) Hyponatremia: Status: Acute Category: Medical Code(s): E87.1 - Hypo-osmolality and hyponatremia (7) Chronic systolic heart failure: Status: Acute Category: Medical Code(s): I50.22 - Chronic systolic (congestive) heart failure (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
[2022-01-07 10:00] LABS: ABG Base Excess 2.6 mmol/L (-2.4-2.3); ABG HCO3 26.6 mmhg (22.0-26.0); ABG Oxygen Saturation 97 % (90-100); ABG PH 7.45 mmol/L (7.35-7.45); ABG TCO2 27.8 mmhg (23-27)
[2022-01-07 10:01] LABS: Allen's Test Patient Unable; Oxygen 40% %; PEEP 5; Pressure Support 5; Source Right Radial
--- NOTE | 2022-01-07 10:09 | PC.NURSE ---
contacted Dr. Winters regarding ABG results, agitation, and tachycardia 120-130s. Pt is attempting to pull out ET tube. Reviewed all labs, reports, and clinical picture with Dr. Winters. He ordered to extubate to CPAP. RT (Miguelina) made aware.
--- NOTE | 2022-01-07 10:22 | DIET.NUTRFU ---
Patient was unable to tolerate TF, on hold since 01/05. Minimal IVF provided. IV lasix provided with good results. Edema resolving. Patient extubated today, nursing/PROCESS INSPECTOR to eval for safe swallow and when medically feasible to advance oral diet. Patient is dx with PCM d/t lack of nutrition since hospital stay d/t poor condition and skin breakdown. Well eval need for supplements once oral diet ordered. Labs reviewed on 01/07. Urine output good on 01/[address] will continue to follow POC
--- NOTE | 2022-01-07 18:23 | PC.NURSE ---
shift summary: Pt extubated this morning to 40% CPAP and is tolerating it well. O2 sat high 90s. GCS 10 (). Bilateral mittens placed r/t him attempting to pull CPAP mask off. V paced on tele. Rate in the 110-120s this morning but as the day as progressed, HR has decreased and is now in the 80s. Has been normotensive. Israel catheter with hematuria and oliguria. Received LR 500mL r/t hematuria and oliguria. BLE SCDs. Has been turned and repositioned Q2h. BLE with 2+ edema.
[2022-01-08] VITALS (21 sets, daily range): BP systolic 86–148; BP diastolic 39–87; PULSE 73–121; RESP 18–25; TEMP 36.6–36.8; O2SAT 94–100; BMI 23.3
--- NOTE | 2022-01-08 00:58 | PC.NURSE ---
pt's sats remained 88% on 4LNC, pt mouth breathing and snoring, placed nasal cannula near pt's mouth instead of nares and pt's oxygen saturations went up to 98%, decreased back to 3LNC and pt's oxygen saturation 96%
--- NOTE | 2022-01-08 02:04 | PC.NURSE ---
pt very restless and continued pulling cpap mask off, asked pt if needed a break from cpap and pt shook head yes, took cpap off and placed pt on 5LNC, cleaned out pt's mouth with swabs, oxygen saturations 97%, decreased to 4LNC, oxygen saturations 98% on 4LNC, will continue titrating as long as oxygen saturations tolerate
--- NOTE | 2022-01-08 05:21 | PC.NURSE ---
0515: RADIOLOGY AT BEDSIDE FOR PORTABLE CXR. PATIENT REPOSITIONED AFTER XRAY WAS FINISHED. PATIENT SITTING UP LOOKING AT FAMILY MEMBER IN THE ROOM. PATIENT STARTED WAVING AT FAMILY MEMBER.
--- NOTE | 2022-01-08 06:00 | XR_ITS ---
PROCEDURE INFORMATION: Exam: XR Chest Exam date and time: 01/08/2022 5:11 AM Age: 81 years old Clinical indication: Shortness of breath and other: PT extubated yesterday; Additional info: PT was extubated yesterday fu xray TECHNIQUE: Imaging protocol: Radiologic exam of the chest. Views: 1 view. COMPARISON: CR XR CHEST PORTABLE 01/07/2022 8:55 AM FINDINGS: Tubes, catheters and devices: Interval extubation and removal of NG tube. A defibrillator device is present, and its leads are in appropriate position. Lungs: Similar pulmonary opacities bilaterally. Pulmonary vascular congestion again noted. Pleural spaces: Similar right pleural effusion. No pneumothorax. Calcified pleural plaque again noted. Pleural thickening at the lung apices again noted. Heart/Mediastinum: Stable cardiac size. Post operative changes of CABG. Bones/joints: Unremarkable. Soft tissues: Surgical ellen left upper chest. IMPRESSION: No significant change.
[2022-01-08 06:40] LABS: Chloride 100 mmol/L (98-107); Sodium 141 mmol/L (136-145)
[2022-01-08 06:42] LABS: Blood Urea Nitrogen 35 mg/dl (9-20); Creatinine Clearance Estimated 42 mL/min (50-200); Estimated Glomerular Filt Rate 53 ml/min (>60); GFR (African American) 64 ML/MIN (>60)
[2022-01-08 06:43] LABS: Alanine Aminotransferase 32 U/L (12-78); Albumin Level 3.2 g/dl (3.5-5.0); Albumin/Globulin Ratio 0.9 (1.1-1.8); Alkaline Phosphatase 148 U/L (38-126); Aspartate Amino Transferase 78 U/L (17-59); Bilirubin,Total 1.8 mg/dl (0.2-1.3); Calcium 8.8 mg/dl (8.4-10.2); Carbon Dioxide 30 mmol/L (22.0-30.0); Globulin 3.5 g/dL (1.3-3.2); Glucose 83 mg/dl (74-100); Total Protein,Serum 6.7 g/dl (6.3-8.2)
[2022-01-08 06:46] LABS: Basophils # 0.1 K/mm3 (0-0.2); Eosinophils % 0.7 % (0.1-12.0); Hematocrit 30.5 % (42.0-52.0); Lymphocytes # 0.8 K/mm3 (0.7-4.5); Lymphocytes % 14.6 % (10-50); Mean Corpuscular HGB Conc 31.5 g/dL (31.8-35.4); Mean Corpuscular Hemoglobin 28.7 pg (27.0-31.2); Mean Corpuscular Volume 91.2 fl (80-94); Mean Platelet Volume 8.6 fl (7.4-10.4); Monocytes # 0.5 K/mm3 (0.1-1.0); Monocytes % 8.6 % (1.7-9.3); Neutrophils # 4.2 K/mm3 (1.8-7.8); Neutrophils % 75.1 % (37.0-80.0); Platelet Count 214 K/mm3 (142-424); Red Blood Count 3.35 M/mm3 (4.60-6.20); Red Cell Distribution Width 17.1 % (11.5-17.5); White Blood Count 5.6 K/mm3 (4.8-10.8)
[2022-01-08 06:51] LABS: Hemoglobin 9.6 g/dL (14.1-18.0)
--- NOTE | 2022-01-08 08:52 | EXP.PN ---
Subjective *Date: 01/08/22 *Time: 08:52 Interval history: Patient has been stable throughout the night. Remains on O2 at 2 L/min per nasal cannula with adequate O2 sats. He does communicate indicates that he has no pain and he is not short of breath. He continues with Israel catheter to bedside drainage. He has SCUDs on bilateral lower extremities. stayed with him throughout the night. States he was restless until changed nasal cannula O2 Exam Data for Last 24 hours Vital signs and Labs for Last 24 Hours: Temp Pulse Resp BP Pulse Ox FiO2 98.0 F 114 H 19 148/39 H 97 40 01/08/22 04:00 01/08/22 06:05 01/08/22 06:00 01/08/22 06:00 01/08/22 06:05 01/08/22 00:00 Laboratory Results - last 24 hr 01/07/22 10:00: Specimen Source Right radial, O2 % 40%, ABG pH 7.45, ABG pCO2 39.0, ABG pO2 99.0, ABG HCO3 26.6 H, ABG Total CO2 27.8 H, ABG O2 Saturation 97, ABG Base Excess 2.6 H, Dominic Test Patient unable, PEEP 5 01/08/22 05:36: WBC 5.6, RBC 3.35 L, Hgb 9.6 L D, Hct 30.5 L, MCV 91.2, MCH 28.7, MCHC 31.5 L, RDW 17.1, Plt Count 214, MPV 8.6, Neut % (Auto) 75.1, Lymph % (Auto) 14.6, [place] % (Auto) 8.6, Eos % (Auto) 0.7, Baso % (Auto) 1.0, Neut # (Auto) 4.2, Lymph # (Auto) 0.8, [place] # (Auto) 0.5, Eos # (Auto) 0.0, Baso # (Auto) 0.1 01/08/22 05:36: Sodium 141, Potassium 4.0, Chloride 100, Carbon Dioxide 30, Anion Gap 15.0, BUN 35 H, Creatinine 1.30 H, Estimated Creat Clear 42, Estimated GFR 53 L, Est GFR ( Amer) 64, Glucose 83, Calcium 8.8, Total Bilirubin 1.8 H, AST 78 H, ALT 32, Alkaline Phosphatase 148 H, Total Protein 6.7, Albumin 3.2 L, Globulin 3.5 H, Albumin/Globulin Ratio 0.9 L I & O for Last 24 hours: Intake & Output 01/05/22 01/06/22 01/07/22 01/08/22 11:59 11:59 11:59 11:59 Intake Total 1187 / 1187 1220 / 1220 850 / 850 800 / 800 Output Total 2685 / 2685 1713 / 1713 1519 / 1519 415 / 415 Balance -1498 / -1498 -493 / -493 -669 / -669 385 / 385 Weight 175 lb 14.4 oz 154 lb 6 oz 162 lb 150 lb 6 oz Microbiology Reports for the Last 24 Hours: Microbiology 01/03/22 15:50 Sputum - Endotracheal Tube Aspirate Gram Stain - Final 01/03/22 15:50 Sputum - Endotracheal Tube Aspirate Sputum Culture - Final Normal Respiratory Vandana Constitutional Constitutional: no acute distress and thin Routine Chest/Breast/Axilla Exam Comments: Pacer site seems to be clean and healing. Decreasing ecchymosis. *Routine Respiratory Exam Respiratory: Present decreased breath sounds and rhonchi *Routine Cardiovascular Exam Cardiovascular: Present RRR (Paced rhythm) *Routine Abdominal Exam Abdominal: Present soft and normoactive bowel sounds; Absent tenderness *Routine Extremities Exam Extremities: Present edema (Bilateral ankle), full ROM and pulses intact Comments: SCUDs on bilateral lower extremities *Routine Neurological Exam Neurological: Present alert and moving all extremities Assessment and Plan *Assessment and plan (1) Hypokalemia: Status: Acute Category: Medical Code(s): E87.6 - Hypokalemia (2) Status post biventricular cardiac pacemaker insertion: Status: Acute Category: Surgical Code(s): Z95.0 - Presence of cardiac pacemaker (3) PAF (paroxysmal atrial fibrillation): Status: Acute Category: Medical Code(s): I48.0 - Paroxysmal atrial fibrillation (4) Chronic anemia: Status: Acute Category: Medical Code(s): D64.9 - Anemia, unspecified (5) CAD (coronary artery disease): Status: Acute Category: Medical Code(s): I25.10 - Atherosclerotic heart disease of [place] coronary artery without angina pectoris (6) Cardiac arrest: Status: Acute Category: Medical Code(s): I46.9 - Cardiac arrest, cause unspecified (7) GENNA (acute kidney injury): Status: Acute Category: Medical Code(s): N17.9 - Acute kidney failure, unspecified (8) Pulmonary hypert
--- NOTE | 2022-01-08 08:55 | EXP.CARD.PN ---
Subjective Subjective Date: 01/08/22 Time: 08:00 Principal diagnosis: s/p cardiac arrest and AICD upgrade/ cardiogenic shock Interval history: Patient was extubated yesterday, maintaining sats on 2Liters nc. Had some hematuria over the weekend, his DVT prophalaxis was DC and was started on SCDs. Remains off all drips. Vitals stable. Chest xray from this am reviewed. Labs: Hgb 9.6 and stable, creatinine 1.30. Alert, responds to commands. speech/swallow eval pending. paced rhythm noted. Exam Data for Last 24 hours Vital signs and Labs for Last 24 Hours: Temp Pulse Resp BP Pulse Ox FiO2 98.0 F 114 H 19 148/39 H 97 40 01/08/22 04:00 01/08/22 06:05 01/08/22 06:00 01/08/22 06:00 01/08/22 06:05 01/08/22 00:00 Laboratory Results - last 24 hr 01/07/22 10:00: Specimen Source Right radial, O2 % 40%, ABG pH 7.45, ABG pCO2 39.0, ABG pO2 99.0, ABG HCO3 26.6 H, ABG Total CO2 27.8 H, ABG O2 Saturation 97, ABG Base Excess 2.6 H, Dominic Test Patient unable, PEEP 5 01/08/22 05:36: WBC 5.6, RBC 3.35 L, Hgb 9.6 L D, Hct 30.5 L, MCV 91.2, MCH 28.7, MCHC 31.5 L, RDW 17.1, Plt Count 214, MPV 8.6, Neut % (Auto) 75.1, Lymph % (Auto) 14.6, [place] % (Auto) 8.6, Eos % (Auto) 0.7, Baso % (Auto) 1.0, Neut # (Auto) 4.2, Lymph # (Auto) 0.8, [place] # (Auto) 0.5, Eos # (Auto) 0.0, Baso # (Auto) 0.1 01/08/22 05:36: Sodium 141, Potassium 4.0, Chloride 100, Carbon Dioxide 30, Anion Gap 15.0, BUN 35 H, Creatinine 1.30 H, Estimated Creat Clear 42, Estimated GFR 53 L, Est GFR ( Amer) 64, Glucose 83, Calcium 8.8, Total Bilirubin 1.8 H, AST 78 H, ALT 32, Alkaline Phosphatase 148 H, Total Protein 6.7, Albumin 3.2 L, Globulin 3.5 H, Albumin/Globulin Ratio 0.9 L I & O for Last 24 hours: Intake & Output 01/05/22 01/06/22 01/07/22 01/08/22 23:59 23:59 23:59 23:59 Intake Total 1653 / 1729 1006 / 1006 800 / 800 Output Total 2068 / 2118 1835 / 1850 529 / 544 230 / 230 Balance -415 / -389 -829 / -844 271 / 256 -230 / -230 Weight 175 lb 14.4 oz 154 lb 6 oz 162 lb 150 lb 6 oz Microbiology Reports for the Last 24 Hours: Microbiology 01/03/22 15:50 Sputum - Endotracheal Tube Aspirate Gram Stain - Final 01/03/22 15:50 Sputum - Endotracheal Tube Aspirate Sputum Culture - Final Normal Respiratory Vandana Constitutional Constitutional: no acute distress *Routine Respiratory Exam Respiratory: Present rhonchi and symmetric chest movement Comments: Rhonchi noted on right *Routine Cardiovascular Exam Cardiovascular: Present Normal S1, Normal S2 and tachycardia Comments: paced *Routine Abdominal Exam Abdominal: Present soft and normoactive bowel sounds; Absent tenderness *Routine Extremities Exam Extremities: Present edema, full ROM and normal capillary refill Comments: Bilateral lower extremity edema noted but much improved *Routine Skin Exam Skin: Present intact, dry and warm Detailed Neck Exam: Thyroids Thyroid: Absent bruit Progress Note: A&P Assessment and plan (1) Status post biventricular cardiac pacemaker insertion: Status: Acute (2) Hypokalemia: Status: Acute (3) On mechanically assisted ventilation: Status: Acute (4) Chronic anemia: Status: Acute (5) CAD (coronary artery disease): Status: Acute (6) Hyponatremia: Status: Acute (7) Chronic systolic heart failure: Status: Acute (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 Labs stable. -Extubated on 01/07-maintaining sats on 2 Liters NC. Chronic systolic biventricular heart failure/critical pulmonary htn s/p AICD -EF 20%, severe
--- NOTE | 2022-01-08 09:00 | DIET.NUTRFU ---
Addendum entered by Pili Bhatia RD, LD 01/08/22 14:05: Speech completed eval and he did good with clear liquids. When trialed applesauce he held it in mouth. SUPERVISOR [employer] will continue to work with resident and start clear liquids at dinner Original Note: SUPERVISOR [employer] to eval today, 24 hours post extubation for safe oral intake. No IV bolus ordered, NaCl provided with medication pass. Will continue to follow with diet recommendations
--- NOTE | 2022-01-08 09:19 | EXP.PULM.PN ---
Subjective *Date: 01/08/22 *Time: 09:58 Interval history: No acute respiratory events overnight. Patient awake but not alert and completely oriented. Pulmonology Exam Inpatient Vital signs and Labs for Last 24 Hours: Temp Pulse Resp BP Pulse Ox FiO2 97.9 F 113 H 25 H 118/62 98 40 01/08/22 08:00 01/08/22 08:00 01/08/22 08:00 01/08/22 08:00 01/08/22 08:00 01/08/22 00:00 Laboratory Results - last 24 hr 01/07/22 10:00: Specimen Source Right radial, O2 % 40%, ABG pH 7.45, ABG pCO2 39.0, ABG pO2 99.0, ABG HCO3 26.6 H, ABG Total CO2 27.8 H, ABG O2 Saturation 97, ABG Base Excess 2.6 H, Dominic Test Patient unable, PEEP 5 01/08/22 05:36: WBC 5.6, RBC 3.35 L, Hgb 9.6 L D, Hct 30.5 L, MCV 91.2, MCH 28.7, MCHC 31.5 L, RDW 17.1, Plt Count 214, MPV 8.6, Neut % (Auto) 75.1, Lymph % (Auto) 14.6, [place] % (Auto) 8.6, Eos % (Auto) 0.7, Baso % (Auto) 1.0, Neut # (Auto) 4.2, Lymph # (Auto) 0.8, [place] # (Auto) 0.5, Eos # (Auto) 0.0, Baso # (Auto) 0.1 01/08/22 05:36: Sodium 141, Potassium 4.0, Chloride 100, Carbon Dioxide 30, Anion Gap 15.0, BUN 35 H, Creatinine 1.30 H, Estimated Creat Clear 42, Estimated GFR 53 L, Est GFR ( Amer) 64, Glucose 83, Calcium 8.8, Total Bilirubin 1.8 H, AST 78 H, ALT 32, Alkaline Phosphatase 148 H, Total Protein 6.7, Albumin 3.2 L, Globulin 3.5 H, Albumin/Globulin Ratio 0.9 L I & O for Labs for Last 24 Hours: Intake & Output 01/05/22 01/06/22 01/07/22 01/08/22 23:59 23:59 23:59 23:59 Intake Total 1653 / 1729 1006 / 1006 800 / 800 Output Total 2068 / 2118 1835 / 1850 529 / 544 230 / 230 Balance -415 / -389 -829 / -844 271 / 256 -230 / -230 Weight 175 lb 14.4 oz 154 lb 6 oz 162 lb 150 lb 6 oz Microbiology Reports for the Last 24 Hours: Microbiology 01/03/22 15:50 Sputum - Endotracheal Tube Aspirate Gram Stain - Final 01/03/22 15:50 Sputum - Endotracheal Tube Aspirate Sputum Culture - Final Normal Respiratory Vandana Head: Present normocephalic and atraumatic ENT: Present normal exam and normal oropharynx Neck: Present normal inspection Respiratory: Present respiratory distress, crackles and symmetric chest movement; Absent wheezes Comment:: Hematoma around pacemaker site, improving Cardiac: Present Irregularly Regular, S1/S2, Tachycardia and radial pulses present GI: Present soft and distention; Absent tenderness or guarding Skin: Present intact; Absent cyanosis or jaundice Neuro: Present awake; Absent alert or oriented x 3 Extremities: Present normal inspection and edema; Absent clubbing or cyanosis Comment:: 1+ edema Psychiatric: Present normal affect and cooperative Assessment and Plan *Assessment and plan (1) Pleural effusion, bilateral: Status: Acute Category: Medical Code(s): J90 - Pleural effusion, not elsewhere classified (2) Pneumonia: Status: Acute Qualifiers: Pneumonia type: due to unspecified organism Laterality: bilateral Lung location: lower lobe of lung Qualified Code(s): J18.9 - Pneumonia, unspecified organism Category: Medical Code(s): J18.9 - Pneumonia, unspecified organism Plan #Acute hypoxic respiratory failure #Community-acquired pneumonia Mr. Galaviz is a 81-year-old male signal history of CAD, CHF EF 20 to 25%, A. fib, pulmonary hypertension with a wedge 25 presented for an elective procedure for biventricular pacemaker installation, had a a hypoxic event followed by cardiac arrest status post CPR with return of circulation needing intubation mechanical ventilator and pressor support and pulmonary was called for further management. Patient in bed postextubation had poor mentation and failing SBT secondary low tidal volumes, eventually improved and has successfully extubated to CPAP. Patient also has been diuresed while intubated. We had a lower extremity Doppler that was negative. Cultures so far negative. He has been receiving ceftriaxone azithromycin for community-acquired pneu
--- NOTE | 2022-01-08 13:51 | HMH.OTEV ---
OT Inpatient Evaluation Rehab OT IP Evaluation Start: 01/08/22 09:44 Freq: ONCE Status: Complete Protocol: Document 01/08/22 13:39 [facility] (Rec: 01/08/22 13:50 [facility] [id number]) Rehab OT IP Assessment Subjective History Pt resting in bed on arrival. Pt's present and supportive of OT evaluation. Pt unable to verbally respond at this time. Pt was admitted on 01/03/22 due to cardiac arrestu during pacemaker placement. Pt was intubated on 01/03/22 during procedure and extubated on 01/07/22. Prior to being in the hospital , pt lived at home with his . Pt's reports he was independent with all ADLs and IADLs prior to this event. He did not use a walker or any type of AE during ambulation or ADLs. Following information copied from history and physical report: 81 year old white male with above below medical hx presented to hospital for outpatient scheduled upgrade of AICD to BiVentricular AICD. Shortly after receiving anesthesia patient started to decline requiring intubation and short period of cpr, see dental laboratory technician apprentice report. ROSC was achieved and upgrade of device was completed. Patient currently remains intubated and on Levo and Epi drip. Patient was recently admitted to hospital for GENNA, acute GI bleed, cardiogenic shock, and acute on chronic chf exacerbation requiring milrinone drip.? Patient had follow up visit with Dr. Evans post discharge in which he was suppose to discuss upgrade of device to biventricular AICD but it was never
--- NOTE | 2022-01-08 13:52 | HMH.PTEV ---
Physical Therapy Evaluation Rehab PT IP Evaluation Start: 01/08/22 09:44 Freq: ONCE Status: Active Protocol: Document 01/08/22 13:10 [facility] (Rec: 01/08/22 13:52 [facility] [id number]) Subjective/History History History Pt is a 81 y/o male that presented to [facility] on 01/03/22 for scheduled outpatient upgrade of AICD to BiVentricular AICD. Shortly after receiving anesthesia patient started to decline requiring intubation and short period of cpr, see recyclable materials distributor report. ROSC was achieved and upgrade of device was completed. Pt was then intubated on levo and epi drip with recent improvement and was taken off the ventilator yesterday morning. Subjective Subjective Pt was unable to verbally communicate with therapists this date to anser orientation or subjective questions. Pt was able to follow simple commands with delayed response following verbal, visual and tactile cues with noted ability to perform knee extension and ankle pumps. Pt' s was in the room and reports he was completely independent prior to hospitalization and was ambulating without an AD. Rehab PT IP Eval Objective Appearance Patient Behavior Confused Difficulty following instructions moderate Speech Pattern Mumbled,Difficulty Finding Words,Poor Articulation Ambulation Patient Able to Ambulate No Balance Ability to Arise Unable Sitting Balance Leans or slides in chair Dynamic Sitting Balance Ability Poor Transfers Bed Transfer Ability Maximum x 2 (75% assist) Rehab PT IP prob,goals,plan Problems Date of Evaluation: 01/08/22 PT IP Problems Bed Mobility,Transfers,Gait, Balance,Self care,Safety Rehab Potential Rehab Potential Fair Equipment Needs Assistive Devices Rolling / Wheeled Walker, Wheelchair Plan PT Intervention Pl
--- NOTE | 2022-01-08 15:36 | SW/DCPLANNER ---
Addendum entered by [facility] 01/15/22 14:33: Scottie gooden/ Hospice: patient was admitted inpatient Hospice on 01/13/2022 16:00. Addendum entered by [facility] 01/12/22 09:29: Updated patient information has been faxed to [facility]. Addendum entered by [facility] 01/10/22 14:47: Gina Souza stated that she will be onsite to evaluate patient tomorrow morning and speak w/ family. Addendum entered by [facility] 01/10/22 12:52: Tianna Avila evaluated this patient and stated that patient would benefit more from SNF level of care unless patient clears more. I spoke with patient's regarding situation. is agreeable for patient information to be faxed to [facility] and [place]. Patient information will be faxed today. Discharge date is unknown at this time. Addendum entered by [facility] 01/09/22 14:38: Tianna gooden/ [facility] stated that she would be on site to evaluation this patient tomorrow. Addendum entered by [facility] 01/09/22 13:45: During morning rounds Dr Hedrick discussed discharge plans for this patient and requested that patient discharge to an acute care rehab rather than SNF level of care. I informed [facility] to put referral on hold. I also discussed this with patient's and daughter acute care rehab discharge plans. is fine with resuming referral at [facility]: Tianna Avila is reviewing referral at this time and updated patient information has been faxed. I will continue to follow up with MD, patient's family and [facility]. Addendum entered by [facility] 01/09/22 08:39: Gina Souza will follow up with this patient/family today. Discharge date is unknown at this time. Addendum entered by [facility] 01/08/22 15:50: has called back requesting information be faxed to [facility]. G[facility] stated she does have a male bed open. Patient information has been faxed and I will follow up with Gina, therese and MD in the AM. Original Note: I spoke with patient's regarding discharge plans for this patient. PT/OT has recommended SNF level of care at time of discharge. expressed an interest in [facility] in [facility]. I spoke with Intake at [facility]: they do not have any beds available till the weekend but are willing to review the referral. Patient information has been faxed to Tejal at [facility] ([phone]). I did inform of situation and that we would need to consult another facility incase no beds become available. has requested to be able to speak with family this evening then will follow up with me in the AM regarding additional facilities. Discharge date is unknown at this time.
--- NOTE | 2022-01-08 15:42 | HMH.SLDYSPHA ---
Speech & Language Evaluation Speech/Language Dysphagia Evaluation Start: 01/08/22 14:25 Freq: ONCE Status: Active Protocol: Document 01/08/22 14:00 [id number] (Rec: 01/08/22 15:42 TONYA [id number]) Dysphagia Assess/Goals/Plan Assessment Date of Evaluation: 01/08/22 Evaluation Type Initial Certification Assessment/Problems Pt s/p extubation. Does Patient Qualify for Service Yes Qualify/Failure Comment Based on the results of the clinical swallow evaluation, pt would benefit from skilled ST services at this time. Recommendations PHYSICIAN CERTIFICATION: The specified therapy services are required, authorized, and reviewed every 30 days. Pt will be seen # times/week 3 for # weeks 4 Liquid Type Recommendations Normal/Thin Dysphagia Swallow Precautions/Strategies Sitting Upright (90 deg),No Straw,Liquids from Cup,Liquids from Spoon,Small Bites and Sips Place Food on Either side of Mouth Plan Anticipate reaching STG in # weeks 2 Anticipate reaching LTG in # weeks 4 Pt/Guardian verbally ack understanding Yes of dx/prognosis/goals Pt/Guardian verbally ack understanding Yes of/consent to tx prog G -code Required No STG-Other Comment/Non-Specific Pt will accept trials of LRD w /o s/sxs of aspiration during therapy. Half-Way Goals with Liquids Thin Liquids Pt will be able to eat foods w/more Yes normal consistency Education Instructions provided Diet recommendations and assessment results discussed with pt, family, case management, and nursing, who expressed understanding. Pt/Caregiver able to recall information Able to recall/restate Reinforcement needed No Speech & Language HPI History Present Illness Description of Patient Problem Pt is an 81 year old male presenting to [facility] s/p coding during a pacemaker procedure. Pt was intubated 01/03 and extubated 01/07. Rehab Services Assessed Speech therapy General Information General Current Food Consistancy NPO Dentition Good Dentition Oxygen Status Nasal Cannula Facial Symmetry Symmetrical Ability to Follow Directions Poor Communication Ability Moderate Impairment Dysphagia:Food Presentation Evaluation Food Type Pureed,Liquid
--- NOTE | 2022-01-08 18:10 | PC.NURSE ---
Patient has been able to tolerate clear liquids today. No jello, just broth. Suctioned some yellow phlegm but no bloody sputum throughout shift. VS stable and patient weaned to 1LNC. Patient turned q2. Patient remained in sinus tachycardia throughout the shift. No PO meds started as patient unable to demonstrate swallowing applesauce during speech eval. No complaints of pain noted. Patient able to follow commands but unable to answer orientation questions.
[2022-01-09] VITALS (25 sets, daily range): BP systolic 92–117; BP diastolic 56–75; PULSE 79–140; RESP 18–23; TEMP 36.6–36.9; O2SAT 1–100; BMI 23.3
[2022-01-09 06:40] LABS: Basophils # 0.1 K/mm3 (0-0.2); Basophils % 0.9 % (0.1-2.0); Eosinophils # 0.1 K/mm3 (0.0-0.4); Eosinophils % 0.8 % (0.1-12.0); Hematocrit 31.8 % (42.0-52.0); Hemoglobin 9.9 g/dL (14.1-18.0); Lymphocytes % 16.8 % (10-50); Mean Corpuscular HGB Conc 31.2 g/dL (31.8-35.4); Mean Corpuscular Hemoglobin 28.4 pg (27.0-31.2); Mean Corpuscular Volume 91.2 fl (80-94); Mean Platelet Volume 8.4 fl (7.4-10.4); Monocytes # 0.5 K/mm3 (0.1-1.0); Monocytes % 8.2 % (1.7-9.3); Neutrophils # 4.4 K/mm3 (1.8-7.8); Neutrophils % 73.3 % (37.0-80.0); Platelet Count 211 K/mm3 (142-424); Red Blood Count 3.48 M/mm3 (4.60-6.20); Red Cell Distribution Width 17.2 % (11.5-17.5); White Blood Count 5.9 K/mm3 (4.8-10.8)
[2022-01-09 06:44] LABS: Chloride 102 mmol/L (98-107); Sodium 142 mmol/L (136-145)
[2022-01-09 06:46] LABS: Blood Urea Nitrogen 41 mg/dl (9-20); Creatinine Clearance Estimated 36 mL/min (50-200); Estimated Glomerular Filt Rate 45 ml/min (>60); GFR (African American) 54 ML/MIN (>60)
[2022-01-09 06:47] LABS: Alanine Aminotransferase 54 U/L (12-78); Albumin Level 3.2 g/dl (3.5-5.0); Albumin/Globulin Ratio 0.9 (1.1-1.8); Alkaline Phosphatase 144 U/L (38-126); Aspartate Amino Transferase 111 U/L (17-59); Bilirubin,Total 1.9 mg/dl (0.2-1.3); Calcium 9.1 mg/dl (8.4-10.2); Carbon Dioxide 28 mmol/L (22.0-30.0); Globulin 3.5 g/dL (1.3-3.2); Glucose 90 mg/dl (74-100); Total Protein,Serum 6.7 g/dl (6.3-8.2)
--- NOTE | 2022-01-09 09:04 | EXP.PN ---
Subjective *Date: 01/09/22 *Time: 09:11 Interval history: Granddaughter stayed with patient throughout the night. She states he was restless moving all extremities put, pulling at his gown, placing legs out of bed.He was seen by speech therapy yesterday. Please refer to note. He will take thin liquids only. He has had a poor oral intake with basically just water and broth. He has to be encouraged to swallow. He continues with Israel catheter to bedside drainage. Exam Data for Last 24 hours Vital signs and Labs for Last 24 Hours: Temp Pulse Resp BP Pulse Ox FiO2 97.8 F 118 H 23 117/72 97 40 01/09/22 08:20 01/09/22 06:09 01/09/22 05:52 01/09/22 05:52 01/09/22 07:47 01/08/22 00:00 Laboratory Results - last 24 hr 01/09/22 05:46: WBC 5.9, RBC 3.48 L, Hgb 9.9 L, Hct 31.8 L, MCV 91.2, MCH 28.4, MCHC 31.2 L, RDW 17.2, Plt Count 211, MPV 8.4, Neut % (Auto) 73.3, Lymph % (Auto) 16.8, [place] % (Auto) 8.2, Eos % (Auto) 0.8, Baso % (Auto) 0.9, Neut # (Auto) 4.4, Lymph # (Auto) 1.0, [place] # (Auto) 0.5, Eos # (Auto) 0.1, Baso # (Auto) 0.1 01/09/22 05:46: Sodium 142, Potassium 4.0, Chloride 102, Carbon Dioxide 28, Anion Gap 16.0 H, BUN 41 H, Creatinine 1.50 H, Estimated Creat Clear 36, Estimated GFR 45 L, Est GFR ( Amer) 54 L, Glucose 90, Calcium 9.1, Total Bilirubin 1.9 H, AST 111 H D, ALT 54 D, Alkaline Phosphatase 144 H, Total Protein 6.7, Albumin 3.2 L, Globulin 3.5 H, Albumin/Globulin Ratio 0.9 L I & O for Last 24 hours: Intake & Output 01/06/22 01/07/22 01/08/22 01/09/22 11:59 11:59 11:59 11:59 Intake Total 1220 / 1220 850 / 850 800 / 800 170 / 170 Output Total 1713 / 1713 1519 / 1519 640 / 640 500 / 500 Balance -493 / -493 -669 / -669 160 / 160 -330 / -330 Weight 154 lb 6 oz 162 lb 150 lb 6 oz 150 lb 6.4 oz Microbiology Reports for the Last 24 Hours: Microbiology 01/03/22 18:10 Blood Blood Culture - Final NO GROWTH AFTER 5 DAYS 01/03/22 17:00 Blood Blood Culture - Final NO GROWTH AFTER 5 DAYS Constitutional Constitutional: no acute distress and thin *Routine Respiratory Exam Respiratory: Present decreased breath sounds and CTA bilaterally *Routine Cardiovascular Exam Cardiovascular: Present RRR *Routine Abdominal Exam Abdominal: Present soft and normoactive bowel sounds; Absent tenderness *Routine Extremities Exam Extremities: Present edema; Absent calf tenderness *Routine Neurological Exam Neurological: Present alert (Difficult to determine orientation. Patient seems to understand and will communicate with no speech.) and moving all extremities Assessment and Plan *Assessment and plan (1) Hypokalemia: Status: Acute Category: Medical Code(s): E87.6 - Hypokalemia (2) Status post biventricular cardiac pacemaker insertion: Status: Acute Category: Surgical Code(s): Z95.0 - Presence of cardiac pacemaker (3) PAF (paroxysmal atrial fibrillation): Status: Acute Category: Medical Code(s): I48.0 - Paroxysmal atrial fibrillation (4) Chronic anemia: Status: Acute Category: Medical Code(s): D64.9 - Anemia, unspecified (5) CAD (coronary artery disease): Status: Acute Category: Medical Code(s): I25.10 - Atherosclerotic heart disease of [place] coronary artery without angina pectoris (6) Cardiac arrest: Status: Acute Category: Medical Code(s): I46.9 - Cardiac arrest, cause unspecified (7) GENNA (acute kidney injury): Status: Acute Category: Medical Code(s): N17.9 - Acute kidney failure, unspecified (8) Pulmonary hypertension: Status: Acute Category: Medical Code(s): I27.20 - Pulmonary hypertension, unspecified (9) Chronic systolic heart failure: Status: Acute Category: Medical Code(s): I50.22 - Chronic systolic (congestive) heart failure (10) History of coronary art
--- NOTE | 2022-01-09 10:38 | EXP.CARD.PN ---
Subjective Subjective Date: 01/09/22 Time: 08:00 Principal diagnosis: s/p cardiac arrest and AICD upgrade/ cardiogenic shock Interval history: Patient is awake, follow commands, vitals stable. Has taken little po intake of water and broth. Patient was able to swallow entresto this am but nurse reports it was difficult for patient to do so. Speech therapy PT and OT following. I&O balance is -455. Labs reviewed Exam Data for Last 24 hours Vital signs and Labs for Last 24 Hours: Temp Pulse Resp BP Pulse Ox FiO2 97.8 F 85 23 111/67 91 L 40 01/09/22 08:20 01/09/22 10:00 01/09/22 05:52 01/09/22 10:00 01/09/22 10:00 01/08/22 00:00 Laboratory Results - last 24 hr 01/09/22 05:46: WBC 5.9, RBC 3.48 L, Hgb 9.9 L, Hct 31.8 L, MCV 91.2, MCH 28.4, MCHC 31.2 L, RDW 17.2, Plt Count 211, MPV 8.4, Neut % (Auto) 73.3, Lymph % (Auto) 16.8, [place] % (Auto) 8.2, Eos % (Auto) 0.8, Baso % (Auto) 0.9, Neut # (Auto) 4.4, Lymph # (Auto) 1.0, [place] # (Auto) 0.5, Eos # (Auto) 0.1, Baso # (Auto) 0.1 01/09/22 05:46: Sodium 142, Potassium 4.0, Chloride 102, Carbon Dioxide 28, Anion Gap 16.0 H, BUN 41 H, Creatinine 1.50 H, Estimated Creat Clear 36, Estimated GFR 45 L, Est GFR ( Amer) 54 L, Glucose 90, Calcium 9.1, Total Bilirubin 1.9 H, AST 111 H D, ALT 54 D, Alkaline Phosphatase 144 H, Total Protein 6.7, Albumin 3.2 L, Globulin 3.5 H, Albumin/Globulin Ratio 0.9 L I & O for Last 24 hours: Intake & Output 01/06/22 01/07/22 01/08/22 01/09/22 23:59 23:59 23:59 23:59 Intake Total 1006 / 1006 800 / 800 50 / 50 120 / 120 Output Total 1835 / 1850 529 / 544 730 / 730 225 / 225 Balance -829 / -844 271 / 256 -680 / -680 -105 / -105 Weight 154 lb 6 oz 162 lb 150 lb 6 oz 150 lb 6.4 oz Microbiology Reports for the Last 24 Hours: Microbiology 01/03/22 18:10 Blood Blood Culture - Final NO GROWTH AFTER 5 DAYS 01/03/22 17:00 Blood Blood Culture - Final NO GROWTH AFTER 5 DAYS Constitutional Constitutional: no acute distress and thin *Routine Respiratory Exam Respiratory: Present wheezes and crackles *Routine Cardiovascular Exam Cardiovascular: Present RRR Comments: paced *Routine Abdominal Exam Abdominal: Present soft and normoactive bowel sounds; Absent tenderness *Routine Extremities Exam Extremities: Absent edema or calf tenderness *Routine Neurological Exam Neurological: Present alert (Difficult to determine orientation. Patient seems to understand and will communicate with no speech.) and moving all extremities Progress Note: A&P Assessment and plan (1) Hypokalemia: Status: Acute (2) Status post biventricular cardiac pacemaker insertion: Status: Acute (3) PAF (paroxysmal atrial fibrillation): Status: Acute (4) Chronic anemia: Status: Acute (5) CAD (coronary artery disease): Status: Acute (6) Cardiac arrest: Status: Acute (7) GENNA (acute kidney injury): Status: Acute (8) Pulmonary hypertension: Status: Acute (9) Chronic systolic heart failure: Status: Acute (10) History of coronary artery bypass graft: Status: Chronic (11) Pleural effusion, bilateral: Status: Acute Assessment and Plan Assessment and Plan for All Diagnoses:: S/p acute respiratory failure/cardiac arrest/Intubation/cardiogenic shock-resolved -Currently off drips. Labs stable. -Extubated on 01/07-maintaining sats on 2 Liters NC. Chronic systolic biventricular heart failure/critical pulmonary htn s/p AICD -EF 20%, severe to critical pulmonary htn, biventricular chf -s/p upgrade to BiV AICD on 01/03/2022 (patient EF < 25 percent, NYHA III symptoms, QRS duration 172ms) -currently stable. Restarted Entresto today with difficulty noted during swallowing. Mild aortic stenosis-stable -stable CAD-Stable -Stable, see recent [facility] above GENNA -creatinine worse today at 1.5. Recieved LR 500ml Bolus this am. Per
--- NOTE | 2022-01-09 11:32 | EXP.PULM.PN ---
Subjective *Date: 01/09/22 *Time: 11:32 Interval history: No acute respiratory events overnight. Patient still appeared confused not responding appropriately to verbal questions/comments. Pulmonology Exam Inpatient Vital signs and Labs for Last 24 Hours: Temp Pulse Resp BP Pulse Ox FiO2 97.8 F 85 23 111/67 91 L 40 01/09/22 08:20 01/09/22 10:00 01/09/22 05:52 01/09/22 10:00 01/09/22 10:00 01/08/22 00:00 Laboratory Results - last 24 hr 01/09/22 05:46: WBC 5.9, RBC 3.48 L, Hgb 9.9 L, Hct 31.8 L, MCV 91.2, MCH 28.4, MCHC 31.2 L, RDW 17.2, Plt Count 211, MPV 8.4, Neut % (Auto) 73.3, Lymph % (Auto) 16.8, [place] % (Auto) 8.2, Eos % (Auto) 0.8, Baso % (Auto) 0.9, Neut # (Auto) 4.4, Lymph # (Auto) 1.0, [place] # (Auto) 0.5, Eos # (Auto) 0.1, Baso # (Auto) 0.1 01/09/22 05:46: Sodium 142, Potassium 4.0, Chloride 102, Carbon Dioxide 28, Anion Gap 16.0 H, BUN 41 H, Creatinine 1.50 H, Estimated Creat Clear 36, Estimated GFR 45 L, Est GFR ( Amer) 54 L, Glucose 90, Calcium 9.1, Total Bilirubin 1.9 H, AST 111 H D, ALT 54 D, Alkaline Phosphatase 144 H, Total Protein 6.7, Albumin 3.2 L, Globulin 3.5 H, Albumin/Globulin Ratio 0.9 L I & O for Labs for Last 24 Hours: Intake & Output 01/06/22 01/07/22 01/08/22 01/09/22 23:59 23:59 23:59 23:59 Intake Total 1006 / 1006 800 / 800 50 / 50 120 / 120 Output Total 1835 / 1850 529 / 544 730 / 730 225 / 225 Balance -829 / -844 271 / 256 -680 / -680 -105 / -105 Weight 154 lb 6 oz 162 lb 150 lb 6 oz 150 lb 6.4 oz Microbiology Reports for the Last 24 Hours: Microbiology 01/03/22 18:10 Blood Blood Culture - Final NO GROWTH AFTER 5 DAYS 01/03/22 17:00 Blood Blood Culture - Final NO GROWTH AFTER 5 DAYS Head: Present normocephalic and atraumatic ENT: Present normal exam and normal oropharynx Neck: Present normal inspection Respiratory: Present respiratory distress, rhonchi, crackles and symmetric chest movement; Absent wheezes or able to speak in complete sentences Comment:: Hematoma around pacemaker site, improving Cardiac: Present Irregularly Regular, S1/S2, Tachycardia and radial pulses present GI: Present soft and distention; Absent tenderness or guarding Skin: Present intact; Absent cyanosis or jaundice Neuro: Present awake; Absent alert or oriented x 3 Extremities: Present normal inspection and edema; Absent clubbing or cyanosis Comment:: 1+ edema Psychiatric: Present normal affect and cooperative Assessment and Plan *Assessment and plan (1) Pleural effusion, bilateral: Status: Acute Category: Medical Code(s): J90 - Pleural effusion, not elsewhere classified (2) Pneumonia: Status: Acute Qualifiers: Pneumonia type: due to unspecified organism Laterality: bilateral Lung location: lower lobe of lung Qualified Code(s): J18.9 - Pneumonia, unspecified organism Category: Medical Code(s): J18.9 - Pneumonia, unspecified organism Plan #Acute hypoxic respiratory failure #Community-acquired pneumonia Mr. Galaviz is a 81-year-old male signal history of CAD, CHF EF 20 to 25%, A. fib, pulmonary hypertension with a wedge 25 presented for an elective procedure for biventricular pacemaker installation, had a a hypoxic event followed by cardiac arrest status post CPR with return of circulation needing intubation mechanical ventilator and pressor support and pulmonary was called for further management. Patient in bed postextubation had poor mentation and failing SBT secondary low tidal volumes, eventually improved and has successfully extubated to CPAP. Patient also has been diuresed while intubated. We had a lower extremity Doppler that was negative. Cultures so far negative. He has been receiving ceftriaxone azithromycin for community-acquired pneumonia. His chest x-ray continue to improve there is however continue to show persistent bilateral lower lobe infiltrates concernin
--- NOTE | 2022-01-09 16:38 | PC.NURSE ---
IV metoprolol given twice today per No Abbasi, NITISH. Therapy had moved patient to chair and heart rate became increased in 140's. IV metoprolol given twice as patient had trouble swallowing entresto pill this AM. Patient able to swallow pill after few attempts but had to be redirected multiple times. Speech therapist called who stated she would see pt when more alert and that pt qualifies for full liquid diet based off previous evaluation. VS stable and pt remains on 1LNC. Lung sounds exhibit rhonchi on ascultation.
[2022-01-10] VITALS (25 sets, daily range): BP systolic 74–116; BP diastolic 46–82; PULSE 70–126; RESP 16–24; TEMP 36.4–37.1; O2SAT 89–100; BMI 25.0
[2022-01-10 02:30] LABS: POC Glucose,Bedside 99 (70-110)
--- NOTE | 2022-01-10 05:01 | PC.NURSE ---
Pt able to follow some commands but requires frequent encouragement. Pt will look toward noises but has not focused on people/objects. Slow reaction to light noted in both eyes, right slower compared to left. Pt has been very restless t/o shift moving legs out of bed and moving his head left to right continuously. Pt has had a total of 255ml of UO during shift thus far. Urine is dark brown in color. Pt continues to tolerate 1 L nc with sats>90%. Ex Rhonchi scattered t/o lung bases. 2+ edema noted to RUE. is at bedside.
[2022-01-10 06:30] LABS: Chloride 103 mmol/L (98-107)
[2022-01-10 06:31] LABS: Potassium 4.2 mmoL/L (3.5-5.1); Sodium 145 mmol/L (136-145)
[2022-01-10 06:33] LABS: Alanine Aminotransferase 98 U/L (12-78); Albumin Level 3.3 g/dl (3.5-5.0); Alkaline Phosphatase 149 U/L (38-126); Aspartate Amino Transferase 170 U/L (17-59); Bilirubin,Total 2.2 mg/dl (0.2-1.3); Blood Urea Nitrogen 51 mg/dl (9-20); Creatinine Clearance Estimated 39 mL/min (50-200); Estimated Glomerular Filt Rate 45 ml/min (>60); GFR (African American) 54 ML/MIN (>60)
[2022-01-10 06:34] LABS: Albumin/Globulin Ratio 0.9 (1.1-1.8); Anion Gap 17.2 mEq/L (5-15); Calcium 9.3 mg/dl (8.4-10.2); Carbon Dioxide 29 mmol/L (22.0-30.0); Globulin 3.5 g/dL (1.3-3.2); Glucose 103 mg/dl (74-100); Total Protein,Serum 6.8 g/dl (6.3-8.2)
[2022-01-10 06:36] LABS: Basophils # 0.1 K/mm3 (0-0.2); Basophils % 0.7 % (0.1-2.0); Eosinophils % 0.3 % (0.1-12.0); Hematocrit 32.9 % (42.0-52.0); Hemoglobin 9.6 g/dL (14.1-18.0); Lymphocytes % 13.2 % (10-50); Mean Corpuscular HGB Conc 29.2 g/dL (31.8-35.4); Mean Corpuscular Hemoglobin 27.4 pg (27.0-31.2); Mean Corpuscular Volume 93.8 fl (80-94); Mean Platelet Volume 8.1 fl (7.4-10.4); Monocytes # 0.7 K/mm3 (0.1-1.0); Monocytes % 8.7 % (1.7-9.3); Neutrophils # 5.9 K/mm3 (1.8-7.8); Neutrophils % 77.1 % (37.0-80.0); Platelet Count 221 K/mm3 (142-424); Red Blood Count 3.51 M/mm3 (4.60-6.20); Red Cell Distribution Width 16.7 % (11.5-17.5); White Blood Count 7.7 K/mm3 (4.8-10.8)
--- NOTE | 2022-01-10 08:07 | XR_ITS ---
FINAL REPORT CLINICAL HISTORY: blateral crackles post vent COMPARISON: 01/08/2022 FINDINGS: A single portable view of the chest was obtained. There are postoperative changes from median sternotomy. A left subclavian ICD is present. There is cardiomegaly. There is partially improved pulmonary vascular congestion. There are worsening pulmonary alveolar opacities, right greater than left, consistent with worsening edema or pneumonia. Right pleural thickening and pleural calcification is again identified. There are small pleural effusions. The bony thorax is intact. IMPRESSION: Cardiomegaly with partially improved pulmonary vascular congestion. Worsening edema or pneumonia, right greater than left. Small pleural effusions. Reviewed, Interpreted and Dictated by Jonathon Valladares III, MD Transcribed by Graciela Koo Authenticated and [facility]
--- NOTE | 2022-01-10 08:08 | EXP.PN ---
Subjective *Date: 01/10/22 *Time: 08:08 Interval history: stayed with patient throughout the night. Continues to have frequent movements of the head and extremities. She feels he did rest some. He has had very little p.o. intake. He was unable to swallow pills yesterday. states he has had cough throughout the night. Patient did sit up in a chair yesterday. He was able to take a few steps with very little assistance from physical therapy. He continues with Israel catheter to bedside drainage. O2 is at 2 L/min per nasal cannula. He did receive fluid boluses yesterday due to renal function.Daughter stayed with patient during the night. Hemoglobin remained stable at 9.6. Electrolytes are normal. BUN is 51 and creatinine is 1.5 this morning. Exam Data for Last 24 hours Vital signs and Labs for Last 24 Hours: Temp Pulse Resp BP Pulse Ox FiO2 98.6 F 117 H 24 99/64 L 95 40 01/10/22 04:00 01/10/22 06:09 01/10/22 06:00 01/10/22 06:00 01/10/22 06:09 01/08/22 00:00 Laboratory Results - last 24 hr 01/10/22 02:23: POC Glucose 99 01/10/22 05:40: WBC 7.7 D, RBC 3.51 L, Hgb 9.6 L, Hct 32.9 L, MCV 93.8, MCH 27.4, MCHC 29.2 L, RDW 16.7, Plt Count 221, MPV 8.1, Neut % (Auto) 77.1, Lymph % (Auto) 13.2, [place] % (Auto) 8.7, Eos % (Auto) 0.3, Baso % (Auto) 0.7, Neut # (Auto) 5.9, Lymph # (Auto) 1.0, [place] # (Auto) 0.7, Eos # (Auto) 0.0, Baso # (Auto) 0.1 01/10/22 05:40: Sodium 145, Potassium 4.2, Chloride 103, Carbon Dioxide 29, Anion Gap 17.2 H, BUN 51 H, Creatinine 1.50 H, Estimated Creat Clear 39, Estimated GFR 45 L, Est GFR ( Amer) 54 L, Glucose 103 H, Calcium 9.3, Total Bilirubin 2.2 H, AST 170 H D, ALT 98 H D, Alkaline Phosphatase 149 H, Total Protein 6.8, Albumin 3.3 L, Globulin 3.5 H, Albumin/Globulin Ratio 0.9 L I & O for Last 24 hours: Intake & Output 01/07/22 01/08/22 01/09/22 01/10/22 11:59 11:59 11:59 11:59 Intake Total 850 / 850 800 / 800 970 / 970 1505 / 1505 Output Total 1519 / 1519 640 / 640 500 / 500 555 / 555 Balance -669 / -669 160 / 160 470 / 470 950 / 950 Weight 162 lb 150 lb 6 oz 150 lb 6.4 oz 161 lb 2 oz Constitutional Constitutional: no acute distress Comments: Less purposeful response. *Routine Respiratory Exam Respiratory: Present crackles (Bilateral. A&P.) *Routine Cardiovascular Exam Cardiovascular: Present RRR (Paced rhythm mostly) *Routine Abdominal Exam Abdominal: Present soft and normoactive bowel sounds; Absent tenderness or distended *Routine Extremities Exam Extremities: Absent edema *Routine Neurological Exam Neurological: Present alert Assessment and Plan *Assessment and plan (1) Hypokalemia: Status: Acute Category: Medical Code(s): E87.6 - Hypokalemia (2) Status post biventricular cardiac pacemaker insertion: Status: Acute Category: Surgical Code(s): Z95.0 - Presence of cardiac pacemaker (3) PAF (paroxysmal atrial fibrillation): Status: Acute Category: Medical Code(s): I48.0 - Paroxysmal atrial fibrillation (4) Chronic anemia: Status: Acute Category: Medical Code(s): D64.9 - Anemia, unspecified (5) CAD (coronary artery disease): Status: Acute Category: Medical Code(s): I25.10 - Atherosclerotic heart disease of [place] coronary artery without angina pectoris (6) Cardiac arrest: Status: Acute Category: Medical Code(s): I46.9 - Cardiac arrest, cause unspecified (7) GENNA (acute kidney injury): Status: Acute Category: Medical Code(s): N17.9 - Acute kidney failure, unspecified (8) Pulmonary hypertension: Status: Acute Category: Medical Code(s): I27.20 - Pulmonary hypertension, unspecified (9) Chronic systolic heart failure: Status: Acute Category: Medical Code(s): I50.22 - Chronic systolic (congestive) heart failure (10) History of coronary artery bypass graft: Status: Chroni
--- NOTE | 2022-01-10 08:51 | EXP.CARD.PN ---
Subjective Subjective Date: 01/10/22 Time: 08:00 Principal diagnosis: s/p cardiac arrest and AICD upgrade/ cardiogenic shock Interval history: Patient resting, at bedside. Did manage to get up to bedside chair yesterday with assistance. Still having difficulty with speech and swallowing, continues to have little PO intake. Plan for peg tube placement prior to leaving for rehab. Vitals remain stable. Continues to have adequate UOP. Labs reviewed. reported coughing throughout the night, chest xray from this am pending. Plan for eval per [facility] today for possible acceptance to facility. Exam Data for Last 24 hours Vital signs and Labs for Last 24 Hours: Temp Pulse Resp BP Pulse Ox FiO2 97.6 F 117 H 24 99/64 L 95 40 01/10/22 08:00 01/10/22 06:09 01/10/22 06:00 01/10/22 06:00 01/10/22 06:09 01/08/22 00:00 Laboratory Results - last 24 hr 01/10/22 02:23: POC Glucose 99 01/10/22 05:40: WBC 7.7 D, RBC 3.51 L, Hgb 9.6 L, Hct 32.9 L, MCV 93.8, MCH 27.4, MCHC 29.2 L, RDW 16.7, Plt Count 221, MPV 8.1, Neut % (Auto) 77.1, Lymph % (Auto) 13.2, [place] % (Auto) 8.7, Eos % (Auto) 0.3, Baso % (Auto) 0.7, Neut # (Auto) 5.9, Lymph # (Auto) 1.0, [place] # (Auto) 0.7, Eos # (Auto) 0.0, Baso # (Auto) 0.1 01/10/22 05:40: Sodium 145, Potassium 4.2, Chloride 103, Carbon Dioxide 29, Anion Gap 17.2 H, BUN 51 H, Creatinine 1.50 H, Estimated Creat Clear 39, Estimated GFR 45 L, Est GFR ( Amer) 54 L, Glucose 103 H, Calcium 9.3, Total Bilirubin 2.2 H, AST 170 H D, ALT 98 H D, Alkaline Phosphatase 149 H, Total Protein 6.8, Albumin 3.3 L, Globulin 3.5 H, Albumin/Globulin Ratio 0.9 L I & O for Last 24 hours: Intake & Output 01/07/22 01/08/22 01/09/22 01/10/22 23:59 23:59 23:59 23:59 Intake Total 800 / 800 850 / 850 1585 / 1585 40 / 40 Output Total 529 / 544 730 / 730 560 / 560 220 / 220 Balance 271 / 256 120 / 120 1025 / 1025 -180 / -180 Weight 162 lb 150 lb 6 oz 150 lb 6.4 oz 161 lb 2 oz Constitutional Constitutional: no acute distress Comments: Less purposeful response. *Routine Respiratory Exam Respiratory: Present crackles (Bilateral. A&P.) *Routine Cardiovascular Exam Cardiovascular: Present RRR (Paced rhythm mostly) *Routine Abdominal Exam Abdominal: Present soft and normoactive bowel sounds; Absent tenderness or distended *Routine Extremities Exam Extremities: Absent edema *Routine Neurological Exam Neurological: Present alert Progress Note: A&P Assessment and plan (1) Hypokalemia: Status: Acute (2) Status post biventricular cardiac pacemaker insertion: Status: Acute (3) PAF (paroxysmal atrial fibrillation): Status: Acute (4) Chronic anemia: Status: Acute (5) CAD (coronary artery disease): Status: Acute (6) Cardiac arrest: Status: Acute (7) GENNA (acute kidney injury): Status: Acute (8) Pulmonary hypertension: Status: Acute (9) Chronic systolic heart failure: Status: Acute (10) History of coronary artery bypass graft: Status: Chronic (11) Pleural effusion, bilateral: Status: Acute Assessment and Plan Assessment and Plan for All Diagnoses:: S/p acute respiratory failure/cardiac arrest/Intubation/cardiogenic shock-resolved -Currently off drips. Labs stable. -Extubated on 01/07-maintaining sats on 2 Liters NC. Chronic systolic biventricular heart failure/critical pulmonary htn s/p AICD -EF 20%, severe to critical pulmonary htn, biventricular chf -s/p upgrade to BiV AICD on 01/03/2022 (patient EF < 25 percent, NYHA III symptoms, QRS duration 172ms) -currently stable. -still unable to swallow meds. Plan for peg tube placment prior to dc to rehab ?Mild aortic stenosis-stable -stable CAD-Stable -Stable, see recent [facility] above GENNA -creatinine stable today at? 1.5, did receive fluid bolus yesterday for worsening renal failure. Chronic anemia/hx of GI bleed and epistaxis-no active bleed -Holding eliquis -Hg
--- NOTE | 2022-01-10 09:29 | DIET.NUTRFU ---
Addendum entered by Pili Bhatia RD, LD 01/10/22 13:45: He is receiving lactated ringers for hydration. Edema to BLE resolved, last dose of lasix on 01/06. Therapy was working with him today, plans to discharge to rehab facility when ready. Labs from today reviewed: Na 145, K 4.2, BUN 51, Cr 1.50, liver enzymes are worse with AST of 170 and ALT 98 with alkaline phosphate 149H. Once PEG placed and ready to use, pulmocare at 20ml/hr with goal rate of 50ml/hr ATC providing 1200ml/1800kcal 24kcal/kg)/75gm protein (1.02gm/kg) and 946ml formula water with flush of 85ml [id number] with total fluid of 1456ml (20ml/kg hx of CHF). Will continue to follow POC Addendum entered by Pili Bhatia RD, KIM 01/10/22 11:51: PEG placement scheduled for tomorrow morning, would anticipate TF to start on Saturday Original Note: Patient continues to be unable to swallow, he is able to use straw. But unable to swallow once in oral cavity. Therefore unable to swallow pills. Provider consulting sx for PEG, family is still pursuing aggressive treatment. Will follow up with sx consult and when nutrition will be able to start.
--- NOTE | 2022-01-10 09:46 | PC.NURSE ---
verbal order from Dr Winters at this time to start lr @50. pt also placed on room air at this time by MD. harper to change HS breathing treatment to PRN [id number]
--- NOTE | 2022-01-10 10:03 | PC.NURSE ---
per Dr Hedrick during rounds, pt ok to have sky DC and pt can come out of stepdown. [id number]
--- NOTE | 2022-01-10 10:14 | EXP.PULM.PN ---
Subjective *Date: 01/10/22 *Time: 10:14 Interval history: No acute respiratory events overnight. Patient denies any new respiratory complaints, continues to be awake but confused not completely alert and oriented Pulmonology Exam Inpatient Vital signs and Labs for Last 24 Hours: Temp Pulse Resp BP Pulse Ox FiO2 97.6 F 98 H 24 110/70 93 L 40 01/10/22 08:00 01/10/22 10:00 01/10/22 10:00 01/10/22 10:00 01/10/22 10:00 01/08/22 00:00 Laboratory Results - last 24 hr 01/10/22 02:23: POC Glucose 99 01/10/22 05:40: WBC 7.7 D, RBC 3.51 L, Hgb 9.6 L, Hct 32.9 L, MCV 93.8, MCH 27.4, MCHC 29.2 L, RDW 16.7, Plt Count 221, MPV 8.1, Neut % (Auto) 77.1, Lymph % (Auto) 13.2, [place] % (Auto) 8.7, Eos % (Auto) 0.3, Baso % (Auto) 0.7, Neut # (Auto) 5.9, Lymph # (Auto) 1.0, [place] # (Auto) 0.7, Eos # (Auto) 0.0, Baso # (Auto) 0.1 01/10/22 05:40: Sodium 145, Potassium 4.2, Chloride 103, Carbon Dioxide 29, Anion Gap 17.2 H, BUN 51 H, Creatinine 1.50 H, Estimated Creat Clear 39, Estimated GFR 45 L, Est GFR ( Amer) 54 L, Glucose 103 H, Calcium 9.3, Total Bilirubin 2.2 H, AST 170 H D, ALT 98 H D, Alkaline Phosphatase 149 H, Total Protein 6.8, Albumin 3.3 L, Globulin 3.5 H, Albumin/Globulin Ratio 0.9 L I & O for Labs for Last 24 Hours: Intake & Output 01/07/22 01/08/22 01/09/22 01/10/22 23:59 23:59 23:59 23:59 Intake Total 800 / 800 850 / 850 1585 / 1585 40 / 40 Output Total 529 / 544 730 / 730 560 / 560 220 / 220 Balance 271 / 256 120 / 120 1025 / 1025 -180 / -180 Weight 162 lb 150 lb 6 oz 150 lb 6.4 oz 161 lb 2 oz Microbiology Reports for the Last 24 Hours: Microbiology 01/03/22 18:10 Blood Blood Culture - Final NO GROWTH AFTER 5 DAYS 01/03/22 17:00 Blood Blood Culture - Final NO GROWTH AFTER 5 DAYS Head: Present normocephalic and atraumatic ENT: Present normal exam and normal oropharynx Neck: Present normal inspection Respiratory: Present respiratory distress, rhonchi, crackles and symmetric chest movement; Absent wheezes or able to speak in complete sentences Comment:: Hematoma around pacemaker site, improving Cardiac: Present Irregularly Regular, S1/S2, Tachycardia and radial pulses present GI: Present soft and distention; Absent tenderness or guarding Skin: Present intact; Absent cyanosis or jaundice Neuro: Present awake; Absent alert or oriented x 3 Extremities: Present normal inspection and edema; Absent clubbing or cyanosis Comment:: 1+ edema Psychiatric: Present normal affect and cooperative Assessment and Plan *Assessment and plan (1) Pleural effusion, bilateral: Status: Acute Category: Medical Code(s): J90 - Pleural effusion, not elsewhere classified (2) Pneumonia: Status: Acute Qualifiers: Pneumonia type: due to unspecified organism Laterality: bilateral Lung location: lower lobe of lung Qualified Code(s): J18.9 - Pneumonia, unspecified organism Category: Medical Code(s): J18.9 - Pneumonia, unspecified organism Plan #Acute hypoxic respiratory failure #Community-acquired pneumonia Mr. Galaviz is a 81-year-old male signal history of CAD, CHF EF 20 to 25%, A. fib, pulmonary hypertension with a wedge 25 presented for an elective procedure for biventricular pacemaker installation, had a a hypoxic event followed by cardiac arrest status post CPR with return of circulation needing intubation mechanical ventilator and pressor support and pulmonary was called for further management. Patient in bed postextubation had poor mentation and failing SBT secondary low tidal volumes, eventually improved and has successfully extubated to CPAP. Patient also has been diuresed while intubated. We had a lower extremity Doppler that was negative. Cultures so far negative. He has been receiving ceftriaxone azithromycin for community-acquired pneumonia. His chest x-ray continue to improve there is however continue
--- NOTE | 2022-01-10 11:37 | EXP.SURG.CON ---
History of Present Illness *Admission Date: 01/03/22 *Reason for visit:: Feeding difficulty *History of present illness: This is an 81-year-old gentleman seen in consultation from Dr. Hedrick for percutaneous endoscopic gastrostomy tube placement. Please see truncated portion of today's critical care/pulmonology note forwarded below. Forwarded from Dr. Winters's note (truncated): Mr. Galaviz is a 81-year-old male signal history of CAD, CHF EF 20 to 25%, A. fib, pulmonary hypertension with a wedge 25 presented for an elective procedure for biventricular pacemaker installation, had a a hypoxic event followed by? cardiac arrest status post CPR with return of circulation needing intubation mechanical ventilator and pressor support and pulmonary was called for further management. Patient in bed postextubation had poor mentation and failing SBT secondary low tidal volumes, eventually improved and has successfully extubated to CPAP.? Patient also has been diuresed while intubated.? We had a lower extremity Doppler that was negative.? No significant improvement in mentation since yesterday,? patient appear awake, he is not alert and oriented x3.? He has difficulty articulating words concern for neurological injury during cardiopulmonary arrest. Interval update: No acute change in respiratory status, continue to remain on Ativan saturations maintained at 94% above.? Will wean to room air. No significant change in mentation continue to remain only awake not alert and oriented.? Appears confused. Scheduled for PEG placement as patient failed swallow evaluation PFSH [facility]LY [facility], 1928–1983 Medical History (Updated 01/10/22 @ 11:43 by Quinn Tyler MD) GENNA (acute kidney injury) Anemia CAD (coronary artery disease) Cholecystectomy planned Chronic systolic (congestive) heart failure Chronic systolic heart failure Elevated left ventricular end-diastolic pressure (LVEDP) Feeding difficulty Hyperlipidemia Hypertension Hypokalemia FCI current use of anticoagulant therapy Myocardial Infarction On mechanically assisted ventilation PAF (paroxysmal atrial fibrillation) Pneumonia Pulmonary hypertension Shock Sinusitis Syncope Surgical History (Updated 01/04/22 @ 08:58 by EDUARDO Collins) AICD (automatic cardioverter/defibrillator) present History of inguinal hernia repair Hx of CABG Hx of transurethral resection of prostate Family History Diabetes Coronary artery disease Stroke Social History Smoking Status: Never smoker alcohol intake: current substance use type: denies use current occupational status: retired Travel in the last 8 weeks: None Review of Systems Constitutional Constitutional: Reports weakness *Neurologic Neurologic: Reports weakness Meds Home Medications and Allergies Home Medications Medication Instructions Recorded Confirmed Type aspirin 81 mg tablet,delayed 81 mg PO DAILY pacemaker 10/18/21 01/04/22 History release apixaban 2.5 mg tablet (Eliquis) 2.5 mg PO BID Blood 12/18/21 01/04/22 History thinner/defibrillator ferrous sulfate 325 mg (65 mg 325 mg PO BID Iron Supplement 12/18/21 01/04/22 History iron) tablet herbal drugs 2 tab PO BID Supplement 12/18/21 01/04/22 History atorvastatin 40 mg tablet 40 mg PO DAILY hyperlipidemia 01/04/22 01/04/22 History carvedilol 3.125 mg tablet 3.125 mg PO BID blood pressure 01/04/22 01/04/22 History mupirocin 2 % topical ointment 1 applic topical TID Infection 01/04/22 01/04/22 History sacubitril 24 mg-valsartan 26 mg 1 tab PO BID Heart failure 01/04/22 01/04/22 History tablet (Entresto) ticagrelor 90 mg tablet (Brilinta) 90 mg PO BID pacemaker 01/04/22 01/04/22 History New Prescriptions to Start
--- NOTE | 2022-01-10 12:10 | PC.NURSE ---
respiratory therapy attempted to teach pt to use incentive spirometer and assistant women's tennis coach them through the use. pt is unable to follow commands/comprehend how to use IS. will attempt again later
--- NOTE | 2022-01-10 13:52 | PC.NURSE ---
Called laborer tree tapping and left message for Dr Kapadia. pt hr is currently sustained in the 130's. pt is unable to take po meds and is scheduled for PEG placement in the am. [id number]
--- NOTE | 2022-01-10 14:00 | PC.NURSE ---
notified Dr Winters at 1300 that pt o2 sats were dropping into the 70's r/t frequent periods of apnea.
--- NOTE | 2022-01-10 14:19 | ECG_ITS ---
APPROVED REPORT Exam: Resting ECG HR:130 bpm ECG Measurements Heart Rate 130 AXES AL 134 P -18 QRSd 164 QRS 137 QT 320 T 228 QTc 397 Conclusion ELECTRONIC VENTRICULAR PACEMAKER ABNORMAL RHYTHM ECG UNCONFIRMED REPORT Electronically signed by : Jose Ryan MD 01/11/2022 20:07:31
--- NOTE | 2022-01-10 14:54 | PC.NURSE ---
1412 order received from [facility] for 5mg iv lopressor and 0.25mg of dig. 1420 lopressor administered. beginning bp was 98/63 pt bp briefly dropped to the upper 70's sys. pt hr remained in the 130's during administration. pt apnea increased, pt color became alfred, eyes not focussing, pt not responsive to staff. pt stimulated by shaking and apnea resolved. digoxin dose not admin r/t pt condition. 1445 called toni howard with up[date, message left [address] thompson with update, message left hr 117 when on phone with toni howard at 1450. Dr Kapadia to be updated.
--- NOTE | 2022-01-10 15:50 | PC.NURSE ---
RESP CARE NOTE: Attempted to do deep breathe and cough with patient, to assess ability to perform incentive spirometry. Pt unable to follow instruction for deep breath and cough, he does turn head and eyes toward speaker but doesn't follow any instruction for breathing or coughing.
[2022-01-10 15:57] LABS: ABG Base Excess -2.4 mmol/L (-2.4-2.3); ABG HCO3 21.3 mmhg (22.0-26.0); ABG Oxygen Saturation 96 % (90-100); ABG PCO2 30.3 mmhg (35.0-45.0); ABG PH 7.47 mmol/L (7.35-7.45); ABG PO2 82.2 mmhg (80-100); ABG TCO2 22.2 mmhg (23-27)
[2022-01-10 16:02] LABS: Oxygen 2.5L %; Source Right Radial
--- NOTE | 2022-01-10 16:32 | PC.NURSE ---
1530 order received from Nichole Karimi to not give digoxin ivp. also told to order amiodarone drip and amiodarone bolus and prepare for pt to be cardioverted. 1600 Rita presented at bedside to assess pt and pacemaker. pacemaker interrogated by Dr ashford and pacer rep. pt had received amio bolus and hr was now 107 (previously 120's). cardioversion cancelled. order received for pt to have 40mg iv lasix times 1 and to dc maintenance ivf. external male catheter placed on pt at this time as well r/t lasix being given.
--- NOTE | 2022-01-10 18:08 | PC.NURSE ---
pt has been restless this shift, unable to answer questions. is able to follow some commands but has a severe delay noted. family is at bedside and have stated wishes that pt be a do not resuscitate. they have also stated that they would like to speak with Dr Hedrick prior to signing consent for PEG tube as they have several questions. Dr Hedrick notified and is on unit at 1810.
--- NOTE | 2022-01-10 18:41 | P.PN_ITS ---
Subjective *Date: 01/10/22 *Time: 18:41 Interval history: The patient was seen by Dr. Tyler. He is planning to place a PEG tomorrow. The family had some additional questions. I spent some time talking to them.The granddaughter asked about the possibility of a CT head scan which I think is reasonable request under the circumstances. It could help weigh in in terms of proceeding with the PEG. He developed tachycardia earlier and had to get a dose of amiodarone which corrected the rhythm disturbance. He is now on an amiodarone drip and back in stepdown. Medical Exam Vital signs and Labs for Last 24 Hours: Temp Pulse Resp BP Pulse Ox FiO2 97.6 F 110 H 17 109/77 L 99 40 01/10/22 15:12 01/10/22 17:56 01/10/22 15:12 01/10/22 15:12 01/10/22 17:56 01/08/22 00:00 Laboratory Results - last 24 hr 01/10/22 02:23: POC Glucose 99 01/10/22 05:40: WBC 7.7 D, RBC 3.51 L, Hgb 9.6 L, Hct 32.9 L, MCV 93.8, MCH 27.4, MCHC 29.2 L, RDW 16.7, Plt Count 221, MPV 8.1, Neut % (Auto) 77.1, Lymph % (Auto) 13.2, [place] % (Auto) 8.7, Eos % (Auto) 0.3, Baso % (Auto) 0.7, Neut # (Auto) 5.9, Lymph # (Auto) 1.0, [place] # (Auto) 0.7, Eos # (Auto) 0.0, Baso # (Auto) 0.1 01/10/22 05:40: Sodium 145, Potassium 4.2, Chloride 103, Carbon Dioxide 29, Anion Gap 17.2 H, BUN 51 H, Creatinine 1.50 H, Estimated Creat Clear 39, Estimated GFR 45 L, Est GFR ( Amer) 54 L, Glucose 103 H, Calcium 9.3, Total Bilirubin 2.2 H, AST 170 H D, ALT 98 H D, Alkaline Phosphatase 149 H, Total Protein 6.8, Albumin 3.3 L, Globulin 3.5 H, Albumin/Globulin Ratio 0.9 L 01/10/22 15:42: Specimen Source Right radial, O2 % 2.5l, ABG pH 7.47 H, ABG pCO2 30.3 L, ABG pO2 82.2, ABG HCO3 21.3 L, ABG Total CO2 22.2 L, ABG O2 Saturation 96, ABG Base Excess -2.4 I & O for Labs for Last 24 Hours: Intake & Output 01/08/22 01/09/22 01/10/22 01/11/22 11:59 11:59 11:59 11:59 Intake Total 800 / 800 970 / 970 1505 / 1505 0 / 0 Output Total 640 / 640 500 / 500 655 / 655 Balance 160 / 160 470 / 470 850 / 850 0 / 0 Weight 150 lb 6 oz 150 lb 6.4 oz 161 lb 2 oz Comment:: `There seems to be no change in the patient's overall clinical condition. His vital signs are stable at this point. His neurologic status seems unchanged. He moves about in the bed. He does respond to sounds and questions. Assessment and Plan *Assessment and plan (1) Feeding difficulty: Status: Acute Category: Medical Code(s): R63.30 - Feeding difficulties, unspecified (2) Status post biventricular cardiac pacemaker insertion: Status: Acute Category: Surgical Code(s): Z95.0 - Presence of cardiac pacemaker (3) Anoxic encephalopathy: Status: Acute Category: Medical Code(s): G93.1 - Anoxic brain damage, not elsewhere classified Plan CT head scan, non contrast.
--- NOTE | 2022-01-10 18:46 | CT_ITS ---
PROCEDURE INFORMATION: Exam: CT Head Without Contrast Exam date and time: 01/10/2022 7:42 PM Age: 81 years old Clinical indication: Screening exam; Patient HX: Study preop for peg placement in am; Additional info: Anoxic encephalopathy TECHNIQUE: Imaging protocol: Computed tomography of the head without contrast. Radiation optimization: All CT scans at this facility use at least one of these dose optimization techniques: automated exposure control; mA and/or kV adjustment per patient size (includes targeted exams where dose is matched to clinical indication); or iterative reconstruction. COMPARISON: CT HEAD/BRAIN WO CON 11/27/2021 5:53 PM FINDINGS: Limitations: Patient motion artifact severely degrades images, limiting sensitivity of exam. Brain: No large intra- or extra-axial fluid collection. No significant mass effect or midline shift. [place]-white matter differentiation is grossly intact. Cerebral ventricles: No hydrocephalus. Paranasal sinuses: No air fluid levels in the visualized paranasal sinuses. Mastoid air cells: Visualized mastoid air cells are well aerated. Orbital cavities: Bilateral lens replacement. Globes and retro-orbital structures are otherwise unremarkable. Bones/joints: No evidence of depressed calvarial or skull base fracture. Soft tissues: Unremarkable. IMPRESSION: No evidence of acute intracranial abnormality within the limits of this exam.
--- NOTE | 2022-01-10 19:54 | PC.NURSE ---
[address] Hedrick face to face that pt has not voided since sky was dc at approx 1000am. new order to insert new sky
--- NOTE | 2022-01-10 20:32 | PC.NURSE ---
pt went to ct scan and back with 2 radiology technicians and this RN on telemetry with fabian cordonip running, once got pt back up to floor pt had small bowel movement, cleaned pt up, got picture of wound on coccyx, changed dressing on coccyx, changed sheets, and turned pt; family members in room updated on pt's poc
[2022-01-11] VITALS (25 sets, daily range): BP systolic 81–110; BP diastolic 50–78; PULSE 60–113; RESP 14–30; TEMP 36.4–36.9; O2SAT 88–100; BMI 24.1
[2022-01-11 00:56] LABS: Microscopic, Urine URINE MICROSCOPIC (MICROSCOPIC)
[2022-01-11 00:57] LABS: Appearance,Urine CLEAR (Clear); Bilirubin,Urine Negative (Negative); Blood, Urine 3+ (Negative); Color,Urine YELLOW (Yellow); Glucose,Urine (UA) Negative (Negative); Ketones,Urine Negative (Negative); Leukocyte Esterase,Urine TRACE (Negative); Nitrate,Urine Negative (Negative); PH,Urine 5.5 (5.0-8.5); Protein,Urine 2+ (Negative); Specific Gravity, Urine 1.025 (1.005-1.030); Urobilinogen,Urine 0.2 EU/dl (0.2)
[2022-01-11 01:16] LABS: Amorphous Sediment,Urine 1+ /lpf; Bacteria,Urine 1+ /lpf; RBC,Urine 20-50 #/hpf (0-3); WBC,Urine Occasional #/hpf (0-3)
--- NOTE | 2022-01-11 07:01 | PC.NURSE ---
pt to scope/PEG procedure with tele monitor on bed, 2LNC and oxygen tank, amio drip running at 0.5/16.7mL, consent obtained prior to pt leaving floor, family staying in room
[2022-01-11 07:02] LABS: Basophils % 0.5 % (0.1-2.0); Eosinophils # 0.1 K/mm3 (0.0-0.4); Hematocrit 32.5 % (42.0-52.0); Hemoglobin 10.3 g/dL (14.1-18.0); Lymphocytes % 11.3 % (10-50); Mean Corpuscular HGB Conc 31.5 g/dL (31.8-35.4); Mean Corpuscular Hemoglobin 28.9 pg (27.0-31.2); Mean Corpuscular Volume 91.8 fl (80-94); Mean Platelet Volume 8.9 fl (7.4-10.4); Monocytes # 0.7 K/mm3 (0.1-1.0); Monocytes % 8.2 % (1.7-9.3); Neutrophils # 7.1 K/mm3 (1.8-7.8); Platelet Count 216 K/mm3 (142-424); Red Blood Count 3.55 M/mm3 (4.60-6.20); Red Cell Distribution Width 17.4 % (11.5-17.5); White Blood Count 8.9 K/mm3 (4.8-10.8)
--- NOTE | 2022-01-11 08:04 | P.PCN_ITS ---
Procedure: Date: 01/11/22 Patient Date of :: 1940 Procedure Performed:: Percutaneous endoscopic gastrostomy tube placement Indications:: Feeding difficulty Performing Provider:: Quinn Tyler MD Referring Provider:: Dr. Hedrick Sedation:: Monitored anesthesia care Procedure:: After informed consent was obtained the patient was taken to the endoscopy suite. Sedation ensued after the patient was transferred to the left lateral decubitus position. Pulse, blood pressure, and oxygen saturation were monitored throughout the procedure. The endoscope was advanced into the gastric lumen. Transillumination and impulse both confirmed. The left upper quadrant was prepped and draped in a sterile fashion. After infiltration local anesthetic a small transverse incision was made at the point of maximal i mpulse/transillumination. A large bore needle/Angiocath was placed in position under direct visualization. The guidewire was placed through the Angiocath and grasped with snare. The snare was brought out in a retrograde fashion and then secured to the feeding tube. The feeding tube was then pulled into position and anchored at 2.5 cm. The gastroscope was readvanced. Bumper confirmed to be in good position. The tube rotated without difficulty. The gastroscope was carefully removed and the patient was transferred to recovery in stable condition. Please see findings and specimens below for detail. Findings:: Transillumination and impulse confirmed PEG anchored at 2.5 cm Specimens:: None Recommendations:: Post-PEG orders placed Complications:: No immediate Estimated blood obtained (mL): 5
[2022-01-11 08:13] LABS: Chloride 105 mmol/L (98-107); Potassium 4.8 mmoL/L (3.5-5.1); Sodium 145 mmol/L (136-145)
[2022-01-11 08:16] LABS: Alanine Aminotransferase 154 U/L (12-78); Albumin Level 3.2 g/dl (3.5-5.0); Alkaline Phosphatase 131 U/L (38-126); Anion Gap 19.8 mEq/L (5-15); Aspartate Amino Transferase 300 U/L (17-59); Bilirubin,Total 2.7 mg/dl (0.2-1.3); Blood Urea Nitrogen 64 mg/dl (9-20); Calcium 9.2 mg/dl (8.4-10.2); Carbon Dioxide 25 mmol/L (22.0-30.0); Creatinine Clearance Estimated 31 mL/min (50-200); Estimated Glomerular Filt Rate 36 ml/min (>60); GFR (African American) 44 ML/MIN (>60); Globulin 3.3 g/dL (1.3-3.2); Glucose 105 mg/dl (74-100); Total Protein,Serum 6.5 g/dl (6.3-8.2)
--- NOTE | 2022-01-11 09:09 | EXP.CARD.PN ---
Subjective Subjective Date: 01/11/22 Time: 08:00 Principal diagnosis: s/p cardiac arrest and AICD upgrade/ cardiogenic shock Interval history: Patient resting with family at bedside. PEG tube placed this am, patient less responsive but is post sedation. Yesterday patient developed sinus tach. Was given Metoprolol, Dig and started on Amio drip, currently ns rate of 70. CT of head was performed yesterday and negative. Chest xray from 01/10 shows partially improved pulmonary vascular congestion with worsening edema or pneumonia, right greater than left. Small pleural effusions. AM labs show worsening creatinine to 1.80, AST 300, ALT 154, Alk phos 131. Decreased UOP noted for last 24 hours. Exam Data for Last 24 hours Vital signs and Labs for Last 24 Hours: Temp Pulse Resp BP Pulse Ox FiO2 98.3 F 70 18 97/52 L 100 40 01/11/22 06:00 01/11/22 08:15 01/11/22 08:15 01/11/22 08:15 01/11/22 08:15 01/08/22 00:00 Laboratory Results - last 24 hr 01/10/22 15:42: Specimen Source Right radial, O2 % 2.5l, ABG pH 7.47 H, ABG pCO2 30.3 L, ABG pO2 82.2, ABG HCO3 21.3 L, ABG Total CO2 22.2 L, ABG O2 Saturation 96, ABG Base Excess -2.4 01/11/22 00:00: Urine Color Yellow, Urine Appearance Clear, Urine pH 5.5, Ur Specific [place] 1.025, Urine Protein 2+, Urine Glucose (UA) Negative, Urine Ketones Negative, Urine Blood 3+, Urine Nitrate Negative, Urine Bilirubin Negative, Urine Urobilinogen 0.2, Ur Leukocyte Esterase Trace, Urine RBC 20-50, Urine WBC Occasional, Amorphous Sediment 1+, Urine Bacteria 1+ 01/11/22 06:54: WBC 8.9, RBC 3.55 L, Hgb 10.3 L, Hct 32.5 L, MCV 91.8, MCH 28.9, MCHC 31.5 L, RDW 17.4, Plt Count 216, MPV 8.9, Neut % (Auto) 79.0, Lymph % (Auto) 11.3, [place] % (Auto) 8.2, Eos % (Auto) 1.0, Baso % (Auto) 0.5, Neut # (Auto) 7.1, Lymph # (Auto) 1.0, [place] # (Auto) 0.7, Eos # (Auto) 0.1, Baso # (Auto) 0.0 01/11/22 06:54: Sodium 145, Potassium 4.8, Chloride 105, Carbon Dioxide 25, Anion Gap 19.8 H, BUN 64 H D, Creatinine 1.80 H, Estimated Creat Clear 31, Estimated GFR 36 L, Est GFR ( Amer) 44 L, Glucose 105 H, Calcium 9.2, Total Bilirubin 2.7 H, AST 300 H D, ALT 154 H D, Alkaline Phosphatase 131 H, Total Protein 6.5, Albumin 3.2 L, Globulin 3.3 H, Albumin/Globulin Ratio 1.0 L I & O for Last 24 hours: Intake & Output 01/08/22 01/09/22 01/10/22 01/11/22 23:59 23:59 23:59 23:59 Intake Total 850 / 850 1585 / 1585 427 / 427 Output Total 730 / 730 560 / 560 320 / 320 250 / 250 Balance 120 / 120 1025 / 1025 107 / 107 -250 / -250 Weight 150 lb 6 oz 150 lb 6.4 oz 161 lb 2 oz 155 lb 9 oz Constitutional Constitutional: no acute distress Comments: Less purposeful response. *Routine Respiratory Exam Respiratory: Present wheezes and crackles (Bilateral. A&P.) *Routine Cardiovascular Exam Cardiovascular: Present RRR (Paced rhythm mostly) *Routine Abdominal Exam Abdominal: Present soft and normoactive bowel sounds; Absent tenderness or distended *Routine Extremities Exam Extremities: Absent edema *Routine Neurological Exam Neurological: Present alert Progress Note: A&P Assessment and plan (1) Feeding difficulty: Status: Acute (2) Status post biventricular cardiac pacemaker insertion: Status: Acute (3) Anoxic encephalopathy: Status: Acute Assessment and Plan Assessment and Plan for All Diagnoses:: S/p acute respiratory failure/cardiac arrest/Intubation/cardiogenic shock -Extubated on 01/07-maintaining sats on 2 Liters NC. -Patient had episode of tachycardia yesterday, was given metoprolol, dig and started on amio drip. Currently vpaced at 70, BP 97/52. Liver enzymes continue to rise, UOP has decreased. Will get repeat echo, treat with fluids, and stop amio. 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
--- NOTE | 2022-01-11 09:22 | XR_ITS ---
FINAL REPORT CLINICAL HISTORY: worsening edema or pneumonia on chest xray COMPARISON: January 10, 2022 FINDINGS: PORTABLE CHEST There is moderate cardiomegaly. Sternotomy wires are present. A biventricular pacer is present. There are patchy bilateral airspace infiltrates, particularly at the left base. There is loculated fluid in the periphery of the right hemithorax. In comparison to previous exam, the infiltrate in the right lung has improved slightly but the infiltrate in the left lung is worsening. There is no pneumothorax. IMPRESSION: Persistent bilateral infiltrates, improved on the right and worsened on the left. Reviewed, Interpreted and Dictated by Dane Quinn MD Transcribed by Graciela Koo Authenticated and [facility]
--- NOTE | 2022-01-11 09:32 | EXP.PULM.PN ---
Subjective *Date: 01/11/22 *Time: 11:20 Interval history: No acute respiratory vents overnight. Continued minimal oxygen supplementation. No significant improvement in mentation. Pulmonology Exam Inpatient Vital signs and Labs for Last 24 Hours: Temp Pulse Resp BP Pulse Ox FiO2 98.3 F 70 18 97/52 L 100 40 01/11/22 06:00 01/11/22 08:15 01/11/22 08:15 01/11/22 08:15 01/11/22 08:15 01/08/22 00:00 Laboratory Results - last 24 hr 01/10/22 15:42: Specimen Source Right radial, O2 % 2.5l, ABG pH 7.47 H, ABG pCO2 30.3 L, ABG pO2 82.2, ABG HCO3 21.3 L, ABG Total CO2 22.2 L, ABG O2 Saturation 96, ABG Base Excess -2.4 01/11/22 00:00: Urine Color Yellow, Urine Appearance Clear, Urine pH 5.5, Ur Specific [place] 1.025, Urine Protein 2+, Urine Glucose (UA) Negative, Urine Ketones Negative, Urine Blood 3+, Urine Nitrate Negative, Urine Bilirubin Negative, Urine Urobilinogen 0.2, Ur Leukocyte Esterase Trace, Urine RBC 20-50, Urine WBC Occasional, Amorphous Sediment 1+, Urine Bacteria 1+ 01/11/22 06:54: WBC 8.9, RBC 3.55 L, Hgb 10.3 L, Hct 32.5 L, MCV 91.8, MCH 28.9, MCHC 31.5 L, RDW 17.4, Plt Count 216, MPV 8.9, Neut % (Auto) 79.0, Lymph % (Auto) 11.3, [place] % (Auto) 8.2, Eos % (Auto) 1.0, Baso % (Auto) 0.5, Neut # (Auto) 7.1, Lymph # (Auto) 1.0, [place] # (Auto) 0.7, Eos # (Auto) 0.1, Baso # (Auto) 0.0 01/11/22 06:54: Sodium 145, Potassium 4.8, Chloride 105, Carbon Dioxide 25, Anion Gap 19.8 H, BUN 64 H D, Creatinine 1.80 H, Estimated Creat Clear 31, Estimated GFR 36 L, Est GFR ( Amer) 44 L, Glucose 105 H, Calcium 9.2, Total Bilirubin 2.7 H, AST 300 H D, ALT 154 H D, Alkaline Phosphatase 131 H, Total Protein 6.5, Albumin 3.2 L, Globulin 3.3 H, Albumin/Globulin Ratio 1.0 L I & O for Labs for Last 24 Hours: Intake & Output 01/08/22 01/09/22 01/10/22 01/11/22 23:59 23:59 23:59 23:59 Intake Total 850 / 850 1585 / 1585 427 / 427 Output Total 730 / 730 560 / 560 320 / 320 250 / 250 Balance 120 / 120 1025 / 1025 107 / 107 -250 / -250 Weight 150 lb 6 oz 150 lb 6.4 oz 161 lb 2 oz 155 lb 9 oz Microbiology Reports for the Last 24 Hours: Microbiology 01/03/22 18:10 Blood Blood Culture - Final NO GROWTH AFTER 5 DAYS 01/03/22 17:00 Blood Blood Culture - Final NO GROWTH AFTER 5 DAYS Head: Present normocephalic and atraumatic ENT: Present normal exam and normal oropharynx Neck: Present normal inspection Respiratory: Present respiratory distress, rhonchi, crackles and symmetric chest movement; Absent wheezes or able to speak in complete sentences Comment:: Hematoma around pacemaker site, improving Cardiac: Present Irregularly Regular, S1/S2, Tachycardia and radial pulses present GI: Present soft and distention; Absent tenderness or guarding Skin: Present intact; Absent cyanosis or jaundice Neuro: Absent alert, awake or oriented x 3 Extremities: Present normal inspection and edema; Absent clubbing or cyanosis Comment:: 1+ edema Psychiatric: Present normal affect and cooperative Assessment and Plan *Assessment and plan (1) Pleural effusion, bilateral: Status: Acute Category: Medical Code(s): J90 - Pleural effusion, not elsewhere classified (2) Pneumonia: Status: Acute Qualifiers: Laterality: bilateral Lung location: lower lobe of lung Pneumonia type: due to unspecified organism Qualified Code(s): J18.9 - Pneumonia, unspecified organism Category: Medical Code(s): J18.9 - Pneumonia, unspecified organism Plan #Acute hypoxic respiratory failure #Community-acquired pneumonia #AMS Mr. Galaviz is a 81-year-old male signal history of CAD, CHF EF 20 to 25%, A. fib, pulmonary hypertension with a wedge 25 presented for an elective procedure for biventricular pacemaker installation, had a a hypoxic event followed by cardiac arrest status post CPR with return of circulation needing intubation mechanical ventilator and pressor
--- NOTE | 2022-01-11 09:40 | CA_ITS ---
APPROVED REPORT EXAM: Comprehensive 2D, Doppler, and color-flow Echocardiogram Brush Washer: Daay Chery, RT(R) Ht: 5 ft 7 in Wt: 155lbs BSA: 1.81 BP: 97/52 mmHg Indications: cardiogenic shock s/p BI-V placement effusion, CAD, AFIB, PHTN, EF check only. EF 01/03/22 20%. Conclusion 1. Limited echocardiogram was performed to evaluate left ventricular systolic function. 2. The left ventricle is mildly dilated, there is severely reduced left ventricular systolic function, estimated ejection fraction 10 to 15%, left ventricle is globally hypokinetic. 3. No significant pericardial effusion noted. Electronically signed by : Daniel Bryan MD 01/12/2022 12:44:41
--- NOTE | 2022-01-11 09:59 | EXP.ACUTE.PN ---
Subjective *Date: 01/11/22 *Time: 09:59 Interval history: I spoke with the family at length last night. A CT scan of the head was ordered and was not remarkable. This was reassuring to both me and the family. The PEG tube was placed this morning without difficulty. Neurologically the patient has not changed much. I feel that he is dehydrated and fluids are ordered D5 half-normal saline at 125 cc an hour. Medications will be resumed per PEG starting this evening. Overall prognosis remains guarded due to the patient's poor improvements regarding neurologic status. Medical Exam Vital signs and Labs for Last 24 Hours: Temp Pulse Resp BP Pulse Ox FiO2 98.3 F 70 18 97/52 L 100 40 01/11/22 06:00 01/11/22 08:15 01/11/22 08:15 01/11/22 08:15 01/11/22 08:15 01/08/22 00:00 Laboratory Results - last 24 hr 01/10/22 15:42: Specimen Source Right radial, O2 % 2.5l, ABG pH 7.47 H, ABG pCO2 30.3 L, ABG pO2 82.2, ABG HCO3 21.3 L, ABG Total CO2 22.2 L, ABG O2 Saturation 96, ABG Base Excess -2.4 01/11/22 00:00: Urine Color Yellow, Urine Appearance Clear, Urine pH 5.5, Ur Specific [place] 1.025, Urine Protein 2+, Urine Glucose (UA) Negative, Urine Ketones Negative, Urine Blood 3+, Urine Nitrate Negative, Urine Bilirubin Negative, Urine Urobilinogen 0.2, Ur Leukocyte Esterase Trace, Urine RBC 20-50, Urine WBC Occasional, Amorphous Sediment 1+, Urine Bacteria 1+ 01/11/22 06:54: WBC 8.9, RBC 3.55 L, Hgb 10.3 L, Hct 32.5 L, MCV 91.8, MCH 28.9, MCHC 31.5 L, RDW 17.4, Plt Count 216, MPV 8.9, Neut % (Auto) 79.0, Lymph % (Auto) 11.3, [place] % (Auto) 8.2, Eos % (Auto) 1.0, Baso % (Auto) 0.5, Neut # (Auto) 7.1, Lymph # (Auto) 1.0, [place] # (Auto) 0.7, Eos # (Auto) 0.1, Baso # (Auto) 0.0 01/11/22 06:54: Sodium 145, Potassium 4.8, Chloride 105, Carbon Dioxide 25, Anion Gap 19.8 H, BUN 64 H D, Creatinine 1.80 H, Estimated Creat Clear 31, Estimated GFR 36 L, Est GFR ( Amer) 44 L, Glucose 105 H, Calcium 9.2, Total Bilirubin 2.7 H, AST 300 H D, ALT 154 H D, Alkaline Phosphatase 131 H, Total Protein 6.5, Albumin 3.2 L, Globulin 3.3 H, Albumin/Globulin Ratio 1.0 L I & O for Labs for Last 24 Hours: Intake & Output 01/08/22 01/09/22 01/10/22 01/11/22 11:59 11:59 11:59 11:59 Intake Total 800 / 800 970 / 970 1505 / 1505 387 / 387 Output Total 640 / 640 500 / 500 655 / 655 250 / 250 Balance 160 / 160 470 / 470 850 / 850 137 / 137 Weight 150 lb 6 oz 150 lb 6.4 oz 161 lb 2 oz 155 lb 9 oz Head: Present normocephalic Eyes: Present other (Pupils equal round reactive to light and accommodation) ENT: Present mucous membranes dry Neck: Present normal inspection Respiratory: Present rales (Particularly on the right) and rhonchi; Absent respiratory distress Cardiac: Present Reg Rate and Rhythm (Paced) GI: Present soft and other (PEG and dressing in place.) Comment:: [place] catheter was replaced Extremities: Present edema (Only a trace) Skin: Present intact Neuro: Present awake Comment:: No real neurologic improvement evidenced at this point. Assessment and Plan *Assessment and plan (1) Anoxic encephalopathy: Status: Acute Category: Medical Code(s): G93.1 - Anoxic brain damage, not elsewhere classified (2) Feeding difficulty: Status: Acute Category: Medical Code(s): R63.30 - Feeding difficulties, unspecified (3) PEG (percutaneous endoscopic gastrostomy) status: Status: Acute Category: Surgical Code(s): Z93.1 - Gastrostomy status (4) Status post biventricular cardiac pacemaker insertion: Status: Acute Category: Surgical Code(s): Z95.0 - Presence of cardiac pacemaker (5) CAD (coronary artery disease): Status: Acute Category: Medical Code(s): I25.10 - Atherosclerotic heart disease of [place] coronary artery without angina pectoris (6) GENNA (acute kidney injury): Status: Acute Category: Medical Code(s): N17.9 - Acute kidney failure, unspecified
[2022-01-11 11:04] LABS: Ammonia < 9 umol/L (9-30)
--- NOTE | 2022-01-11 11:08 | DIET.NUTRFU ---
Patient had PEG placed earlier today, surgeon said can used after 4 hours. Surgeon also recommended bolus feed, patient is anxious and moves around alot afraid it might get pulled out if running on pump ATC. Abdominal binder ordered along with mitts. Patient has been NPO for most of stay, clear liquids was ordered from 01/09- but patient unable to follow commands to swallow, therefore was not getting much nutrition. He did receive minimal TF on 01/04-01/05 while intubated. Patient needed PEG placed to meet nutritional needs, prognosis remains guarded due to limited improvements. He is now a DNR. Weight is down to 70kg, no edema noted. Continues to has stage 2 to coccyx which looks worse possibly d/t lack of nutrition. Nutritional needs at [facility] are 1850-1950kcal and 85-95gm protein and 1400-1500ml fluid. Currently receiving D5 for hydration, labs reviewed: Na 145, 4.8, BUN 64H (51H), Cr 1.8 (1.5H)renal labs worse, liver enzyme are worse also at AST 300H (170H) ALT 154H (98H). When ready will start Nutren 2.0 at 50ml bolus via PEG Q 4 hours and increase as tolerated with goal amount at 150ml [id number]/day= 1800kcal/75.6gm protein and 622.8ml formula fluid. May need additional protein powder to meet wound healing needs, will eval after goal rate is reached. Flush with 60ml before and after each bolus (120ml [id number]). Total fluid amount would be 1350ml/day. Will review with nursing.
--- NOTE | 2022-01-11 14:00 | PC.NURSE ---
Addendum entered by Debra Sanon, RT 01/11/22 15:41: Patient also placed back on 2 lpm n/c due to decreasing oxygen saturation, before suctioning attempt. He has periods of apnea at times, and decreasing oxygen saturations. Original Note: RESP CARE NOTE: Attempted NT suctioning per Dr Winters verbal order, but patient thrashing head and body and started coughing. Small amount dark yellow secretions suctioned via oral suctioning, following the strong cough response of attempted NT suctioning.
--- NOTE | 2022-01-11 16:02 | PC.NURSE ---
Pt will open his eyes to voice but is unable to follow commands. Rhonchi noted to lungs. He remains on 3L NC with O2 sats measuring >90%. Attempted to remove O2 but saturations would intermittently drop to lower 80's. O2 drop coincided with pt's intermittent apnea. He's been paced on telemetry. His sky is to bedside draining dark markell urine. He's had a total of 250mls out this shift. Abdominal binder in place. Tube feeds administered per order. Residuals were 30 mls at 1600. Edema noted to BUE. Large bruise noted to left chest/side. Pacemaker incision open to air. Scattered bruising noted. Bed is locked and in the lowest position, call light is within reach. Family is at bedside.
[2022-01-12] VITALS (16 sets, daily range): BP systolic 98–123; BP diastolic 59–79; PULSE 70–120; RESP 16–26; TEMP 36.4–36.8; O2SAT 90–98; BMI 23.2
--- NOTE | 2022-01-12 05:45 | PC.NURSE ---
Pt responds to painful stimuli. Opens eyes spontaneously. Moans at times. Thrashes about in bed. Does not follow commands or have purposeful movements. BP has been stable. Has been tachycardic at times this shift. Paced on telemetry. He is currently on 1L O2 NC. Lungs noted to have crackles to (L) base. Scattered wheezing and rhonchi noted. O2 sats mid to upper 90s. Tube feed Nutren 2.0 boluses admin at 2000 and 000 with residuals 30, 40. Tube feed was increased from 50 ml to 75 ml at 2000. Tube feed was held at 0400 due to residual of 230 ml. Pt has had 3 soft BM. F/C draining to bedside with tea colored urine and sediment noted. Pt bathed and oral care administered. Family remains at bedside.
--- NOTE | 2022-01-12 06:31 | EXP.SURG.PN ---
Subjective Narrative: Per nursing, percutaneous endoscopic gastrostomy tube has been utilized without difficulty. Exam Data for Last 24 hours Vital signs and Labs for Last 24 Hours: Temp Pulse Resp BP Pulse Ox FiO2 97.6 F 110 H 26 H 111/79 94 L 40 01/12/22 05:07 01/12/22 06:00 01/12/22 06:00 01/12/22 06:00 01/12/22 06:00 01/08/22 00:00 Laboratory Results - last 24 hr 01/11/22 06:54: WBC 8.9, RBC 3.55 L, Hgb 10.3 L, Hct 32.5 L, MCV 91.8, MCH 28.9, MCHC 31.5 L, RDW 17.4, Plt Count 216, MPV 8.9, Neut % (Auto) 79.0, Lymph % (Auto) 11.3, [place] % (Auto) 8.2, Eos % (Auto) 1.0, Baso % (Auto) 0.5, Neut # (Auto) 7.1, Lymph # (Auto) 1.0, [place] # (Auto) 0.7, Eos # (Auto) 0.1, Baso # (Auto) 0.0 01/11/22 06:54: Sodium 145, Potassium 4.8, Chloride 105, Carbon Dioxide 25, Anion Gap 19.8 H, BUN 64 H D, Creatinine 1.80 H, Estimated Creat Clear 31, Estimated GFR 36 L, Est GFR ( Amer) 44 L, Glucose 105 H, Calcium 9.2, Total Bilirubin 2.7 H, AST 300 H D, ALT 154 H D, Alkaline Phosphatase 131 H, Total Protein 6.5, Albumin 3.2 L, Globulin 3.3 H, Albumin/Globulin Ratio 1.0 L 01/11/22 10:50: Ammonia < 9 L I & O for Last 24 hours: Intake & Output 01/09/22 01/10/22 01/11/22 01/12/22 11:59 11:59 11:59 11:59 Intake Total 970 / 970 1505 / 1505 387 / 387 390 / 390 Output Total 500 / 500 655 / 655 400 / 400 450 / 450 Balance 470 / 470 850 / 850 -13 / -13 -60 / -60 Weight 150 lb 6.4 oz 161 lb 2 oz 155 lb 9 oz 150 lb Constitutional Comments: Unchanged *Routine Abdominal Exam Comments: PEG in position. Rotates easily. No sign of infection. Progress Note: A&P Assessment and plan (1) Feeding difficulty: Status: Acute Assessment and plan: Continue tube feeds via PEG as per primary service/dietary (2) Status post biventricular cardiac pacemaker insertion: Status: Acute (3) Anoxic encephalopathy: Status: Acute
[2022-01-12 06:35] LABS: Basophils % 0.4 % (0.1-2.0); Hemoglobin 10.3 g/dL (14.1-18.0); Lymphocytes # 0.5 K/mm3 (0.7-4.5); Lymphocytes % 7.5 % (10-50); Mean Corpuscular HGB Conc 31.4 g/dL (31.8-35.4); Mean Corpuscular Hemoglobin 28.6 pg (27.0-31.2); Mean Corpuscular Volume 91.1 fl (80-94); Mean Platelet Volume 9.3 fl (7.4-10.4); Monocytes # 0.5 K/mm3 (0.1-1.0); Monocytes % 7.5 % (1.7-9.3); Neutrophils # 5.3 K/mm3 (1.8-7.8); Neutrophils % 84.6 % (37.0-80.0); Platelet Count 270 K/mm3 (142-424); Red Blood Count 3.62 M/mm3 (4.60-6.20); Red Cell Distribution Width 17.8 % (11.5-17.5); White Blood Count 6.3 K/mm3 (4.8-10.8)
[2022-01-12 06:44] LABS: Chloride 105 mmol/L (98-107); Potassium 4.1 mmoL/L (3.5-5.1); Sodium 145 mmol/L (136-145)
[2022-01-12 06:46] LABS: Alanine Aminotransferase 140 U/L (12-78); Alkaline Phosphatase 138 U/L (38-126); Anion Gap 19.1 mEq/L (5-15); Aspartate Amino Transferase 248 U/L (17-59); Bilirubin,Total 2.5 mg/dl (0.2-1.3); Blood Urea Nitrogen 71 mg/dl (9-20); Carbon Dioxide 25 mmol/L (22.0-30.0); Creatinine Clearance Estimated 26 mL/min (50-200); Estimated Glomerular Filt Rate 30 ml/min (>60); GFR (African American) 37 ML/MIN (>60)
[2022-01-12 06:47] LABS: Albumin Level 3.3 g/dl (3.5-5.0); Albumin/Globulin Ratio 0.9 (1.1-1.8); Calcium 9.1 mg/dl (8.4-10.2); Globulin 3.5 g/dL (1.3-3.2); Glucose 135 mg/dl (74-100); Total Protein,Serum 6.8 g/dl (6.3-8.2)
--- NOTE | 2022-01-12 08:33 | EXP.ACUTE.PN ---
Subjective *Date: 01/12/22 *Time: 08:33 Interval history: Nursing and family state he has not been able to follow commands this morning. His family states he was agitated throughout the night and did receive some pain medication which helped. He has been coughing quite a bit throughout the night. Medical Exam Vital signs and Labs for Last 24 Hours: Temp Pulse Resp BP Pulse Ox FiO2 97.6 F 86 26 H 111/79 94 L 40 01/12/22 05:07 01/12/22 08:18 01/12/22 06:00 01/12/22 06:00 01/12/22 06:00 01/08/22 00:00 Laboratory Results - last 24 hr 01/11/22 10:50: Ammonia < 9 L 01/11/22 10:50: Cortisol 29.6 01/12/22 05:48: WBC 6.3 D, RBC 3.62 L, Hgb 10.3 L, Hct 33.0 L, MCV 91.1, MCH 28.6, MCHC 31.4 L, RDW 17.8 H, Plt Count 270, MPV 9.3, Neut % (Auto) 84.6 H, Lymph % (Auto) 7.5 L, [place] % (Auto) 7.5, Eos % (Auto) 0.0 L, Baso % (Auto) 0.4, Neut # (Auto) 5.3, Lymph # (Auto) 0.5 L, [place] # (Auto) 0.5, Eos # (Auto) 0.0, Baso # (Auto) 0.0 01/12/22 05:48: Sodium 145, Potassium 4.1, Chloride 105, Carbon Dioxide 25, Anion Gap 19.1 H, BUN 71 H, Creatinine 2.10 H, Estimated Creat Clear 26, Estimated GFR 30 L, Est GFR ( Amer) 37 L, Glucose 135 H D, Calcium 9.1, Total Bilirubin 2.5 H, AST 248 H, ALT 140 H, Alkaline Phosphatase 138 H, Total Protein 6.8, Albumin 3.3 L, Globulin 3.5 H, Albumin/Globulin Ratio 0.9 L I & O for Labs for Last 24 Hours: Intake & Output 01/09/22 01/10/22 01/11/22 01/12/22 11:59 11:59 11:59 11:59 Intake Total 970 / 970 1505 / 1505 387 / 387 390 / 390 Output Total 500 / 500 655 / 655 400 / 400 450 / 450 Balance 470 / 470 850 / 850 -13 / -13 -60 / -60 Weight 150 lb 6.4 oz 161 lb 2 oz 155 lb 9 oz 150 lb Constitutional: Present agitated Respiratory: Present rhonchi and wheezes Comment:: Paced GI: Present soft and other (PEG tube in place); Absent distention Extremities: Absent edema Skin: Present intact Comment:: Altered mental status - Patient does open his eyes to voice but cannot follow commands Assessment and Plan *Assessment and plan (1) Anoxic encephalopathy: Status: Acute Category: Medical Code(s): G93.1 - Anoxic brain damage, not elsewhere classified (2) Feeding difficulty: Status: Acute Category: Medical Code(s): R63.30 - Feeding difficulties, unspecified (3) PEG (percutaneous endoscopic gastrostomy) status: Status: Acute Category: Surgical Code(s): Z93.1 - Gastrostomy status (4) Status post biventricular cardiac pacemaker insertion: Status: Acute Category: Surgical Code(s): Z95.0 - Presence of cardiac pacemaker (5) CAD (coronary artery disease): Status: Acute Category: Medical Code(s): I25.10 - Atherosclerotic heart disease of [place] coronary artery without angina pectoris (6) GENNA (acute kidney injury): Status: Acute Category: Medical Code(s): N17.9 - Acute kidney failure, unspecified (7) Stented coronary artery: Status: Acute Category: Surgical Code(s): Z95.5 - Presence of coronary angioplasty implant and graft (8) History of coronary artery bypass graft: Status: Chronic Category: Surgical Code(s): Z95.1 - Presence of aortocoronary bypass graft (9) Ischemic cardiomyopathy: Status: Chronic Category: Medical Code(s): I25.5 - Ischemic cardiomyopathy (10) Elevated liver function tests: Status: Acute Category: Medical Code(s): R79.89 - Other specified abnormal findings of blood chemistry Plan IV fluids were ordered and patient began PEG tube feedings yesterday. According to his nurse, he had quite a bit of residual. He was seen by cardiology and they ordered an echo, which is still pending. They restarted his Coreg and Brilinta. He was also seen by pulmonology and he continued duo nebs and nasal oxygen. His mentation still does not seem to be improving. He is agitated this morning and wheezing.
--- NOTE | 2022-01-12 08:46 | XR_ITS ---
FINAL REPORT CLINICAL HISTORY: wheezing COMPARISON: One day prior FINDINGS: There is a left subclavian ICD. Cardiomegaly is noted. There has been prior median sternotomy. There is pulmonary vascular congestion. There are persistent pulmonary opacities that could represent edema or pneumonia. There is partially improved aeration of the left lung base. A small left pleural effusion is present. There is no pneumothorax. The bony thorax is intact. IMPRESSION: Persistent pulmonary opacities could represent edema or pneumonia. Reviewed, Interpreted and Dictated by Jonathon Valladares III, MD Transcribed by Raza Bean Authenticated and [facility]
--- NOTE | 2022-01-12 09:37 | EXP.CARD.PN ---
Subjective Subjective Date: 01/12/22 Time: 08:00 Principal diagnosis: s/p cardiac arrest and AICD upgrade/ cardiogenic shock Interval history: Patient continues to decline, family reports restless night. Coughing and wheezing noted, chest xray pending. Patient is awake, not following commands. Labs as follows: Creatinine 2.10, BUN 71, Total Bili 2.5, AST 248, ALT 140, Alk phos 138. Patient remains vpaced, rate 100s. BP acceptable. Little UOP noted. Patient began PEG tube feeding yesterday, nurse reports significant residual left. 1+edema noted to ankles. Exam Data for Last 24 hours Vital signs and Labs for Last 24 Hours: Temp Pulse Resp BP Pulse Ox FiO2 97.6 F 86 20 123/71 97 40 01/12/22 08:00 01/12/22 08:18 01/12/22 08:00 01/12/22 08:00 01/12/22 08:00 01/08/22 00:00 Laboratory Results - last 24 hr 01/11/22 10:50: Ammonia < 9 L 01/11/22 10:50: Cortisol 29.6 01/12/22 05:48: WBC 6.3 D, RBC 3.62 L, Hgb 10.3 L, Hct 33.0 L, MCV 91.1, MCH 28.6, MCHC 31.4 L, RDW 17.8 H, Plt Count 270, MPV 9.3, Neut % (Auto) 84.6 H, Lymph % (Auto) 7.5 L, [place] % (Auto) 7.5, Eos % (Auto) 0.0 L, Baso % (Auto) 0.4, Neut # (Auto) 5.3, Lymph # (Auto) 0.5 L, [place] # (Auto) 0.5, Eos # (Auto) 0.0, Baso # (Auto) 0.0 01/12/22 05:48: Sodium 145, Potassium 4.1, Chloride 105, Carbon Dioxide 25, Anion Gap 19.1 H, BUN 71 H, Creatinine 2.10 H, Estimated Creat Clear 26, Estimated GFR 30 L, Est GFR ( Amer) 37 L, Glucose 135 H D, Calcium 9.1, Total Bilirubin 2.5 H, AST 248 H, ALT 140 H, Alkaline Phosphatase 138 H, Total Protein 6.8, Albumin 3.3 L, Globulin 3.5 H, Albumin/Globulin Ratio 0.9 L I & O for Last 24 hours: Intake & Output 01/09/22 01/10/22 01/11/22 01/12/22 23:59 23:59 23:59 23:59 Intake Total 1585 / 1585 427 / 427 195 / 390 195 / 195 Output Total 560 / 560 320 / 320 550 / 800 300 / 300 Balance 1025 / 1025 107 / 107 -355 / -410 -105 / -105 Weight 150 lb 6.4 oz 161 lb 2 oz 155 lb 9 oz 150 lb Constitutional Constitutional: diaphoretic and agitated Comments: Not following commands *Routine Respiratory Exam Respiratory: Present wheezes and crackles *Routine Cardiovascular Exam Cardiovascular: Present Normal S1 and Normal S2 Comments: vpaced and tachy *Routine Extremities Exam Extremities: Present edema and pallor Comments: edema forming at ankles. Progress Note: A&P Assessment and plan (1) Anoxic encephalopathy: Status: Acute (2) Feeding difficulty: Status: Acute (3) PEG (percutaneous endoscopic gastrostomy) status: Status: Acute (4) Status post biventricular cardiac pacemaker insertion: Status: Acute (5) CAD (coronary artery disease): Status: Acute (6) GENNA (acute kidney injury): Status: Acute (7) Stented coronary artery: Status: Acute (8) History of coronary artery bypass graft: Status: Chronic (9) Ischemic cardiomyopathy: Status: Chronic (10) Elevated liver function tests: Status: Acute Assessment and Plan Assessment and Plan for All Diagnoses:: S/p acute respiratory failure/cardiac arrest/Intubation/cardiogenic shock -Extubated on 01/07-maintaining sats on 2 Liters NC. 01/12- Worsening creatinine noted despite being adequately hydrated for 48 hours. Decreased UOP noted. Elevated liver enzymes still noted. Start milrinone drip today. 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 Entresto and lasix on hold due to worsening creatinine. Patient started on milrinone drip. Continue coreg 3.125 BID via PEG tube. If BP drops on milrinone, can administer midodrine 5mg for BP support. Repeat limied Echo from 01/11 shows EF 10-15% Altered mental status -CT head 01/10/2022- negative for acute process. -Ammonia < 9 01/12
--- NOTE | 2022-01-12 09:38 | EXP.PULM.PN ---
Subjective *Date: 01/12/22 *Time: 11:09 Interval history: No acute respiratory events overnight. No significant improvement in mentation. Pulmonology Exam Inpatient Vital signs and Labs for Last 24 Hours: Temp Pulse Resp BP Pulse Ox FiO2 97.6 F 86 20 123/71 97 40 01/12/22 08:00 01/12/22 08:18 01/12/22 08:00 01/12/22 08:00 01/12/22 08:00 01/08/22 00:00 Laboratory Results - last 24 hr 01/11/22 10:50: Ammonia < 9 L 01/11/22 10:50: Cortisol 29.6 01/12/22 05:48: WBC 6.3 D, RBC 3.62 L, Hgb 10.3 L, Hct 33.0 L, MCV 91.1, MCH 28.6, MCHC 31.4 L, RDW 17.8 H, Plt Count 270, MPV 9.3, Neut % (Auto) 84.6 H, Lymph % (Auto) 7.5 L, [place] % (Auto) 7.5, Eos % (Auto) 0.0 L, Baso % (Auto) 0.4, Neut # (Auto) 5.3, Lymph # (Auto) 0.5 L, [place] # (Auto) 0.5, Eos # (Auto) 0.0, Baso # (Auto) 0.0 01/12/22 05:48: Sodium 145, Potassium 4.1, Chloride 105, Carbon Dioxide 25, Anion Gap 19.1 H, BUN 71 H, Creatinine 2.10 H, Estimated Creat Clear 26, Estimated GFR 30 L, Est GFR ( Amer) 37 L, Glucose 135 H D, Calcium 9.1, Total Bilirubin 2.5 H, AST 248 H, ALT 140 H, Alkaline Phosphatase 138 H, Total Protein 6.8, Albumin 3.3 L, Globulin 3.5 H, Albumin/Globulin Ratio 0.9 L I & O for Labs for Last 24 Hours: Intake & Output 01/09/22 01/10/22 01/11/22 01/12/22 23:59 23:59 23:59 23:59 Intake Total 1585 / 1585 427 / 427 195 / 390 195 / 195 Output Total 560 / 560 320 / 320 550 / 800 300 / 300 Balance 1025 / 1025 107 / 107 -355 / -410 -105 / -105 Weight 150 lb 6.4 oz 161 lb 2 oz 155 lb 9 oz 150 lb Microbiology Reports for the Last 24 Hours: Microbiology 01/03/22 18:10 Blood Blood Culture - Final NO GROWTH AFTER 5 DAYS 01/03/22 17:00 Blood Blood Culture - Final NO GROWTH AFTER 5 DAYS Head: Present normocephalic and atraumatic ENT: Present normal exam and normal oropharynx Neck: Present normal inspection Respiratory: Present respiratory distress, rhonchi, crackles and symmetric chest movement; Absent wheezes or able to speak in complete sentences Comment:: Hematoma around pacemaker site, improving Cardiac: Present Irregularly Regular, S1/S2, Tachycardia and radial pulses present GI: Present soft and distention; Absent tenderness or guarding Skin: Present intact; Absent cyanosis or jaundice Neuro: Absent alert, awake or oriented x 3 Extremities: Present normal inspection and edema; Absent clubbing or cyanosis Comment:: 1+ edema Psychiatric: Present normal affect; Absent cooperative Assessment and Plan *Assessment and plan (1) Pleural effusion, bilateral: Status: Acute Category: Medical Code(s): J90 - Pleural effusion, not elsewhere classified (2) Pneumonia: Status: Acute Qualifiers: Laterality: bilateral Lung location: lower lobe of lung Pneumonia type: due to unspecified organism Qualified Code(s): J18.9 - Pneumonia, unspecified organism Category: Medical Code(s): J18.9 - Pneumonia, unspecified organism (3) Atelectasis of both lungs: Status: Acute Category: Medical Code(s): J98.11 - Atelectasis (4) Respiratory failure with hypoxia: Status: Acute Category: Medical Code(s): J96.91 - Respiratory failure, unspecified with hypoxia Plan #Acute hypoxic respiratory failure #Community-acquired pneumonia s/p ABx copmletion #LL atelectasis Mr. Galavzi is a 81-year-old male signal history of CAD, CHF EF 20 to 25%, A. fib, pulmonary hypertension with a wedge 25 presented for an elective procedure for biventricular pacemaker installation, had a a hypoxic event followed by cardiac arrest status post CPR with return of circulation needing intubation mechanical ventilator and pressor support and pulmonary was called for further management. Patient in bed postextubation had poor mentation and failing SBT secondary low tidal volumes, eventually improved and has successfully extubated to CPAP. Annie
--- NOTE | 2022-01-12 12:55 | PC.NURSE ---
Addendum entered by Dorie Bach RN 01/12/22 17:53: RESIDUAL RECHECK AT 1600 WAS 200 ML'S. NOTIFIED AND HE STATED TO INCREASE REGLAN DOSE TO 5 MG AND IF RESIDUAL IS >200 ML'S TO HOLD FEEDINGS. CONTINUE TO CHECK RESIDUAL Q4H. Original Note: PT WAS TURNED AND REPOSITIONED AT 1200. PLACEMENT OF PEG VERIFIED. RESIDUAL WAS CHECKED AND PT WAS NOTED TO HAVE OVER 240ML'S OF WATERY TUBE FEEDING. NOTIFIED FAMILY PHYSICIAN, AND MADHAVI SANTORO. MADHAVI SANTORO NOTIFIED AND HE ORDERED REGLAN 2.5 MG Q6H SCHEDULED PER G-TUBE AND TO CONTINUE TO CHECK RESIDUALS. PT HAS NOT FOLLOWED COMMANDS AT ALL THIS SHIFT. NO VERBAL RESPONSE. PT WAS UNABLE TO PARTICIPATE WITH PHYSICAL THERAPY THIS SHIFT. CONTINUES TO THRASH IN BED. NO DIRECT EYE CONTACT. ORAL CARE PROVIDED. PACED ON TELEMETRY. OCCASIONAL TACHYCARDIA. BP MAINTAINING 124/68. O2 SATURATION 95-98% ON 1 L NC. LUNG SOUNDS HAVE SCATTERED WHEEZES/RHONCHI. SWELLING NOTED TO BUE/BLE. WOUND NOTED TO COCCYX WITH DRESSING C/D/I. WILL CONTINUE TO MONITOR.
[2022-01-13] VITALS (15 sets, daily range): BP systolic 90–134; BP diastolic 42–77; PULSE 70–119; RESP 17–30; TEMP 36.6–36.9; O2SAT 93–98; BMI 23.4
--- NOTE | 2022-01-13 02:06 | PC.NURSE ---
Ryley KLIEN notified @ 0130 of pt continuing to be restless after medication administration through gtube. also told about residuals of 230 ml both at 2000 and 0000. Drainage also noted around gtube area. DSGs changed. New orders received to pt morphine 1mg IV once. Orders carried out.
--- NOTE | 2022-01-13 03:57 | PC.NURSE ---
Pt has been restless t/o shift. Has slept in small increments. Pain medication administered per may. 2nd percocet administered after 1st dose did not improve pain. Morphine 1 mg administered. VS currently stable. Pt is currently on 2L O2 NC. Rhonchi noted t/o lung block. Apnea noted at times. Drainage noted around peg tube. DSGs changed periodically t/o shift to keep abdomen dry. Tube feeds not restarted due to residuals. 230, 230, 170. Residual aspirated has been dark bile in color. Pt turned Q2 hr. Pt has had one BM this shift. F/C draining to bedside with dark markell urine. Milrinone is infusing @ 0.125 mcg/kg/min.
--- NOTE | 2022-01-13 06:44 | XR_ITS ---
PROCEDURE INFORMATION: Exam: XR Chest Exam date and time: 01/13/2022 6:48 AM Age: 81 years old Clinical indication: Shortness of breath; Additional info: Decline in respiratory status TECHNIQUE: Imaging protocol: Radiologic exam of the chest. Views: 1 view. COMPARISON: CR XR CHEST PORTABLE 01/12/2022 12:39 PM FINDINGS: Tubes, catheters and devices: Transvenous pacemaker leads Lungs: Opacities in the right upper lobe and both bases may represent atelectasis or pneumonia.. Pleural spaces: Calcified pleural plaques may represent exposure to asbestos Heart/Mediastinum: Cardiomegaly and vascular prominence may represent interstitial edema or mild congestive heart failure.. Bones/joints: Median sternotomy IMPRESSION: 1. Cardiomegaly and vascular prominence may represent interstitial edema or mild congestive heart failure.. 2. Opacities in the right upper lobe and both bases may represent atelectasis or pneumonia..
--- NOTE | 2022-01-13 07:03 | PC.NURSE ---
Spoke with Ryley KLEIN about decline in pt status. New orders received to get CXR and give Lasix 20 mg IV. Orders carried out.
--- NOTE | 2022-01-13 08:15 | EXP.SURG.PN ---
Subjective Narrative: Nurses report continued high residuals on any tube feeds . Nursing also reports a fairly significant amount of clear fluid leaking from the PEG site . Exam Data for Last 24 hours Vital signs and Labs for Last 24 Hours: Temp Pulse Resp BP Pulse Ox FiO2 98.0 F 89 22 99/56 L 97 40 01/13/22 04:00 01/13/22 06:00 01/13/22 06:00 01/13/22 06:00 01/13/22 06:00 01/08/22 00:00 Laboratory Results - last 24 hr 01/11/22 10:50: Cortisol 29.6 I & O for Last 24 hours: Intake & Output 01/10/22 01/11/22 01/12/22 01/13/22 11:59 11:59 11:59 11:59 Intake Total 1505 / 1505 387 / 387 390 / 390 51 / 51 Output Total 655 / 655 400 / 400 450 / 450 775 / 775 Balance 850 / 850 -13 / -13 -60 / -60 -724 / -724 Weight 161 lb 2 oz 155 lb 9 oz 150 lb 151 lb 2 oz Constitutional Comments: Unchanged *Routine Cardiovascular Exam Cardiovascular: Absent tachycardia *Routine Abdominal Exam Comments: PEG remains in good position. PEG easily rotates without difficulty. No sign of infection. Serous fluid leakage noted. Progress Note: A&P Assessment and plan (1) Feeding difficulty: Status: Acute Assessment and plan: High residuals noted with bolus feeding. May benefit from continuous very low rate trophic feeds if relatively assured that patient would not pull on tubing Continue medical management (Reglan) as per primary service (2) PEG (percutaneous endoscopic gastrostomy) status: Status: Acute Assessment and plan: Serous fluid from PEG site could be from subcutaneous tissue, abdominal cavity, or intragastric. No sign of infection or dislodgment. No sign of bleeding. Maintain focus pressure dressing
[2022-01-13 09:34] LABS: Basophils % 0.2 % (0.1-2.0); Eosinophils % 0.9 % (0.1-12.0); Hematocrit 33.1 % (42.0-52.0); Hemoglobin 10.4 g/dL (14.1-18.0); Lymphocytes # 0.3 K/mm3 (0.7-4.5); Lymphocytes % 6.6 % (10-50); Mean Corpuscular HGB Conc 31.4 g/dL (31.8-35.4); Mean Corpuscular Hemoglobin 28.8 pg (27.0-31.2); Mean Corpuscular Volume 91.8 fl (80-94); Mean Platelet Volume 9.1 fl (7.4-10.4); Monocytes # 0.1 K/mm3 (0.1-1.0); Monocytes % 2.9 % (1.7-9.3); Neutrophils # 4.3 K/mm3 (1.8-7.8); Neutrophils % 89.5 % (37.0-80.0); Platelet Count 269 K/mm3 (142-424); Red Cell Distribution Width 17.8 % (11.5-17.5); White Blood Count 4.8 K/mm3 (4.8-10.8)
--- NOTE | 2022-01-13 09:37 | DIET.NUTRFU ---
Spoke with RN yesterday and pt having high residuals 12 hours after bolus feeds. Rn reported residuals looked like watery TF. Pt has continued to have residuals over 200mL without TF bolus per RN note. MD has started pt on Reglan. Pt was started on bolus feeds due to fear of tube being pulled out per surgeon recommendation but if pt continues to have high residuals recommend starting pt on continuous feeds. If starting on continuous feeds recommend that pt be started on Nutren 2.0 at 20mL/hr and slowly increase to a goal rate of 38mL/hr with 120mL free water flush every 4 hours. Nutren 2.0 at goal rate of 38mL/hr continuous with 120mL free water flushes every 4 hours would provide pt 1,824 kcal, 77 gram protein, and 1,351 mL. Will continue to monitor pt for residuals and toleration of formula.
[2022-01-13 09:38] LABS: Chloride 107 mmol/L (98-107); Sodium 146 mmol/L (136-145)
[2022-01-13 09:39] LABS: Potassium 3.9 mmoL/L (3.5-5.1)
[2022-01-13 09:41] LABS: Alanine Aminotransferase 105 U/L (12-78); Albumin Level 2.9 g/dl (3.5-5.0); Albumin/Globulin Ratio 0.9 (1.1-1.8); Alkaline Phosphatase 111 U/L (38-126); Anion Gap 11.9 mEq/L (5-15); Aspartate Amino Transferase 177 U/L (17-59); Bilirubin,Total 2.9 mg/dl (0.2-1.3); Carbon Dioxide 31 mmol/L (22.0-30.0); Creatinine Clearance Estimated 26 mL/min (50-200); Estimated Glomerular Filt Rate 30 ml/min (>60); GFR (African American) 37 ML/MIN (>60); Globulin 3.3 g/dL (1.3-3.2); Total Protein,Serum 6.2 g/dl (6.3-8.2)
[2022-01-13 09:42] LABS: Calcium 8.9 mg/dl (8.4-10.2); Glucose 117 mg/dl (74-100)
[2022-01-13 09:45] LABS: MANUAL DIFFERENTIAL MANUAL DIFFERENTIAL (MANUAL DIFF)
[2022-01-13 09:46] LABS: Blood Urea Nitrogen 80 mg/dl (9-20)
[2022-01-13 10:29] LABS: Lymphocytes % 4 % (10-50); Monocytes % 1 % (2-9); Neutrophils % 95 % (42-76); Total Cells Counted 100
[2022-01-13 10:30] LABS: Anisocytosis 1+; Hypochromasia 1+; Macrocytosis 1+; Ovalocytes 1+; Platelet Estimate Normal; Poikilocytosis 1+
--- NOTE | 2022-01-13 11:01 | PC.NURSE ---
residual check this morning was over 240 ml's of charcoal/brownish colored fluid. no bolus feed given at this time.
--- NOTE | 2022-01-13 11:42 | EXP.ACUTE.PN ---
Subjective *Date: 01/13/22 *Time: 11:42 Interval history: He had a difficult night. He is having periods of apnea. His blood pressure is maintained. His heart rate is maintained by pacemaker. His latest echocardiogram was a disappointing report. His ejection fraction may be in the 10 to 15% which has declined from the 20%.His neurologic status has not improved. I spent some time talking with the family. They understand that his situation is dire and not likely to improve. Medical Exam Vital signs and Labs for Last 24 Hours: Temp Pulse Resp BP Pulse Ox FiO2 97.9 F 81 26 H 90/55 L 96 40 01/13/22 08:19 01/13/22 10:00 01/13/22 10:00 01/13/22 10:00 01/13/22 10:00 01/08/22 00:00 Laboratory Results - last 24 hr 01/13/22 09:28: WBC 4.8, RBC 3.60 L, Hgb 10.4 L, Hct 33.1 L, MCV 91.8, MCH 28.8, MCHC 31.4 L, RDW 17.8 H, Plt Count 269, MPV 9.1, Neut % (Auto) 89.5 H, Lymph % (Auto) 6.6 L, [place] % (Auto) 2.9, Eos % (Auto) 0.9, Baso % (Auto) 0.2, Neut # (Auto) 4.3, Lymph # (Auto) 0.3 L, [place] # (Auto) 0.1, Eos # (Auto) 0.0, Baso # (Auto) 0.0, Total Counted 100, Neutrophils % (Manual) 95 H, Lymphocytes % (Manual) 4 L, Monocytes % (Manual) 1 L, Platelet Estimate Normal, Hypochromasia 1+, Poikilocytosis 1+, Anisocytosis 1+, Macrocytosis 1+, Ovalocytes 1+ 01/13/22 09:28: Sodium 146 H, Potassium 3.9, Chloride 107, Carbon Dioxide 31 H, Anion Gap 11.9, BUN 80 H, Creatinine 2.10 H, Estimated Creat Clear 26, Estimated GFR 30 L, Est GFR ( Amer) 37 L, Glucose 117 H, Calcium 8.9, Total Bilirubin 2.9 H, AST 177 H D, ALT 105 H, Alkaline Phosphatase 111, Total Protein 6.2 L, Albumin 2.9 L D, Globulin 3.3 H, Albumin/Globulin Ratio 0.9 L I & O for Labs for Last 24 Hours: Intake & Output 01/10/22 01/11/22 01/12/22 01/13/22 11:59 11:59 11:59 11:59 Intake Total 1505 / 1505 387 / 387 390 / 390 51 / 51 Output Total 655 / 655 400 / 400 450 / 450 955 / 955 Balance 850 / 850 -13 / -13 -60 / -60 -904 / -904 Weight 161 lb 2 oz 155 lb 9 oz 150 lb 151 lb 2 oz Head: Present normocephalic Comment:: JVD Respiratory: Present rhonchi (Periods of apnea.) Comment:: Paced rhythm GI: Present soft and other; Absent distention Comments:: He continues to run high residuals which has impeded PEG tube feedings. Rectal (male): Present other Comments:: He is having bowel movements. (male): Present other Comment:: [place] catheter in place. Draining clear urine. Skin: Present intact (No new lesions.) Neuro: Present Other (No improvement.He has received a dose of morphine for agitation which seem to help.) Assessment and Plan *Assessment and plan (1) Anoxic encephalopathy: Status: Acute Category: Medical Code(s): G93.1 - Anoxic brain damage, not elsewhere classified (2) Feeding difficulty: Status: Acute Category: Medical Code(s): R63.30 - Feeding difficulties, unspecified (3) Pneumonia: Status: Acute Qualifiers: Pneumonia type: due to unspecified organism Laterality: bilateral Lung location: lower lobe of lung Qualified Code(s): J18.9 - Pneumonia, unspecified organism Category: Medical Code(s): J18.9 - Pneumonia, unspecified organism (4) Status post biventricular cardiac pacemaker insertion: Status: Acute Category: Surgical Code(s): Z95.0 - Presence of cardiac pacemaker (5) Shock: Status: Acute Category: Medical Code(s): R57.9 - Shock, unspecified (6) PEG (percutaneous endoscopic gastrostomy) status: Status: Acute Category: Surgical Code(s): Z93.1 - Gastrostomy status (7) Cardiac arrest: Status: Acute Category: Medical Code(s): I46.9 - Cardiac arrest, cause unspecified (8) GENNA (acute kidney injury): Status: Acute Category: Medical Code(s): N17.9 - Acute kidney failure, unspecified (9) Chronic systolic heart failure: Status: Acute Category: Medical Cod
--- NOTE | 2022-01-13 12:34 | PC.NURSE ---
FAMILY WAS CALLED IN THIS MORNING DUE TO RAPID DECLINE T/O THE NIGHT. WHEN ROUNDED IT WAS DECIDED THAT THEY WANTED PT TO BE KEPT COMFORTABLE. HOSPICE HAS BEEN CONTACTED PER FAMILY REQUEST.
--- NOTE | 2022-01-13 17:24 | PC.NURSE ---
HOSPICE ARRIVED AT 1400 TO TALK WITH FAMILY. FAMILY REQUESTED FOR PT'S DRIP TO BE STOPPED AND THEY WANTED PT TO BE KEPT COMFORTABLE. PT IS RELAXED AFTER MORPHINE DOSE. TURNED AND REPOSITIONED. ORAL CARE PROVIDED. WAS NOTIFIED. HYOSCYAMINE 0.125 MG WAS ORDERED TO BE GIVEN THROUGH G-TUBE Q6H PRN. REGLAN WAS DC'D. DRIP WAS STOPPED. AND PT WAS TRANSFERRED OUT OF STEPDOWN TO COMFORT/HOSPICE CARE. 1700 BP 91/48. HR 89. PACED ON TELEMETRY. O2 SATURATION 96% ON 2 L NC. RESPIRATIONS 22. PT HAS HAD PERIODS OF APNEA T/O THE SHIFT. PT HAS WEEPING PITTING EDEMA NOTED TO BUE. EDEMA NOTED TO BLE. DRAINAGE NOTED AROUND PEG TUBE. WILL CONTINUE TO MONITOR.
[2022-01-14] VITALS: BP 91/42; PULSE 81; PULSE 90; RESP 21; O2SAT 94
[2022-01-14 04:00] VITALS: BP 77/45; PULSE 90; PULSE 91; RESP 21; TEMP 37.1; O2SAT 89
--- NOTE | 2022-01-14 04:43 | PC.NURSE ---
Pt DNR, comfort care measures in place. Morphine 2 mg IV and levsin given as needed. Family remains at bedside. Breaths are becoming more agonal. VS are declining. Pt turned and repositioned as family requests.
--- NOTE | 2022-01-14 05:35 | PC.NURSE ---
Ryley KLEIN notified of pt . He will come to hospital to pronounce.
--- NOTE | 2022-01-14 06:09 | P.PN_ITS ---
Subjective *Date: 01/14/22 *Time: 06:09 Interval history: The patient became pulseless and nonbreathing at 5:32 AM. I pronounced him at 6:05 AM. His family was present at the bedside. He had been established in hospice care January 13. Medical Exam Vital signs and Labs for Last 24 Hours: Temp Pulse Resp BP Pulse Ox FiO2 98.7 F 91 H 21 77/45 L 89 L 28 01/14/22 04:00 01/14/22 04:00 01/14/22 04:00 01/14/22 04:00 01/14/22 04:00 01/13/22 20:30 Laboratory Results - last 24 hr 01/13/22 09:28: WBC 4.8, RBC 3.60 L, Hgb 10.4 L, Hct 33.1 L, MCV 91.8, MCH 28.8, MCHC 31.4 L, RDW 17.8 H, Plt Count 269, MPV 9.1, Neut % (Auto) 89.5 H, Lymph % (Auto) 6.6 L, [place] % (Auto) 2.9, Eos % (Auto) 0.9, Baso % (Auto) 0.2, Neut # (Auto) 4.3, Lymph # (Auto) 0.3 L, [place] # (Auto) 0.1, Eos # (Auto) 0.0, Baso # (Auto) 0.0, Total Counted 100, Neutrophils % (Manual) 95 H, Lymphocytes % (Manual) 4 L, Monocytes % (Manual) 1 L, Platelet Estimate Normal, Hypochromasia 1+, Poikilocytosis 1+, Anisocytosis 1+, Macrocytosis 1+, Ovalocytes 1+ 01/13/22 09:28: Sodium 146 H, Potassium 3.9, Chloride 107, Carbon Dioxide 31 H, Anion Gap 11.9, BUN 80 H, Creatinine 2.10 H, Estimated Creat Clear 26, Estimated GFR 30 L, Est GFR ( Amer) 37 L, Glucose 117 H, Calcium 8.9, Total Bilirubin 2.9 H, AST 177 H D, ALT 105 H, Alkaline Phosphatase 111, Total Protein 6.2 L, Albumin 2.9 L D, Globulin 3.3 H, Albumin/Globulin Ratio 0.9 L I & O for Labs for Last 24 Hours: Intake & Output 01/11/22 01/12/22 01/13/22 01/14/22 11:59 11:59 11:59 11:59 Intake Total 387 / 387 390 / 390 51 / 51 Output Total 400 / 400 450 / 450 955 / 955 350 / 350 Balance -13 / -13 -60 / -60 -904 / -904 -322 / -322 Weight 155 lb 9 oz 150 lb 151 lb 2 oz Respiratory: Absent normal respiratory effort (Nonbreathing) Cardiac: Absent Reg Rate and Rhythm (Pulseless) Assessment and Plan *Assessment and plan (1) : Status: Acute Category: Medical Code(s): R99 - Ill-defined and unknown cause of mortality (2) Anoxic encephalopathy: Status: Acute Category: Medical Code(s): G93.1 - Anoxic brain damage, not elsewhere classified (3) Pneumonia: Status: Acute Qualifiers: Pneumonia type: due to unspecified organism Laterality: bilateral Lung location: lower lobe of lung Qualified Code(s): J18.9 - Pneumonia, unspecified organism Category: Medical Code(s): J18.9 - Pneumonia, unspecified organism (4) Status post biventricular cardiac pacemaker insertion: Status: Acute Category: Surgical Code(s): Z95.0 - Presence of cardiac pacemaker (5) Cardiac arrest: Status: Acute Category: Medical Code(s): I46.9 - Cardiac arrest, cause unspecified (6) Chronic systolic heart failure: Status: Acute Category: Medical Code(s): I50.22 - Chronic systolic (congestive) heart failure (7) Ischemic cardiomyopathy: Status: Chronic Category: Medical Code(s): I25.5 - Ischemic cardiomyopathy (8) PEG (percutaneous endoscopic gastrostomy) status: Status: Acute Category: Surgical Code(s): Z93.1 - Gastrostomy status (9) History of coronary artery bypass graft: Status: Chronic Category: Surgical Code(s): Z95.1 - Presence of aortocoronary bypass graft Plan Release body to home.
--- NOTE | 2022-01-14 06:26 | PC.NURSE ---
Ryley KLEIN pronounced pt at 0605. Rod Loera from [facility] contacted at 0615. Ruled out for donation. #[phone].
--- NOTE | 2022-01-14 07:12 | PC.NURSE ---
[facility] contacted for their services by request of family.
--- NOTE | 2022-01-18 21:50 | EXP.DC.SUM ---
General Admission date:: 01/03/22 Discharge date: 01/14/22 HPI HPI HPI: 81 year old white male with above below medical hx presented to hospital for outpatient scheduled upgrade of AICD to BiVentricular AICD. Shortly after receiving anesthesia patient started to decline requiring intubation and short period of cpr, see labeling specialist report. ROSC was achieved and upgrade of device was completed. Patient currently remains intubated and on Levo and Epi drip. Patient was recently admitted to hospital for GENNA, acute GI bleed, cardiogenic shock, and acute on chronic chf exacerbation requiring milrinone drip.? Patient had follow up visit with Dr. Evans post discharge in which he was suppose to discuss upgrade of device to biventricular AICD but it was never discussed per patient and his at last visit. During last office visit patient and agreed to upgrade device at this facility as the patient was still having exacerbation of symptoms at that time. Patient is currently intubated on levo and epi.? ? [facility] 11/27/2021 IMPRESSION Critical two-vessel coronary disease involving the proximal LAD and circumflex artery along with obtuse marginal artery Successful stenting the proximal to mid LAD critical disease reduced to 0% with 2 contiguous drug-eluting stents Successful stenting the proximal circumflex artery severe disease reduced to 0% followed by additional stenting into the first obtuse marginal artery reducing the critical subtotal occlusion to 0% Successful angioplasty of the second obtuse marginal artery reducing a jailed 90% stenosis to 0% Critical left ventricular dysfunction with severely elevated LVEDP and severe regional wall motion abnormality PLAN 1. Supportive care which should include dual antiplatelet therapy 2. Avoidance of IV fluids due to GENNA and cardiogenic shock 3. Brilinta 90 twice daily plus aspirin 81 mg daily 4. Supportive care 5. Depending on the results of the creatinine tomorrow it would be reasonable to start patient on Entresto while carefully monitoring creatinine levels 6. Recommend renal duplex to evaluate for renal artery stenosis 7. Echocardiogram in the morning 8. Low-dose beta-blockers once hemodynamically stable 9. Gentle diuresis due to critically elevated LVEDP.? I do anticipate the EDP will improve now that patient has been revascularized and LV dysfunction should hopefully improved from acute stenting 10. LDL less than 55 to be achieved with high intensity statin Echo 12/19/2021 Conclusion 1.? Dilated left ventricle seen with his left ventricular systolic function, estimated ejection fraction 20-25% left ventricle is globally hypokinetic, grade 2 diastolic dysfunction seen with tissue Doppler evidence of raise left atrial pressure. 2.? Thickened and calcified aortic valve, the aortic valve area calculated in the study is 1.6 cm 5 which represents mild aortic stenosis, previously reported aortic valve 8.9 cm??? 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 Aortic valve is thickened and calcified leaflet continue to display mobility. 3.? Moderate mitral and mild tricuspid regurgitation. 4.? No significant pericardial effusion. 5.? Inferior vena cava is poorly visualized. 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 Restart milrinone 0.125 mcg/kg/min 2. Patient likely is experiencing an GENNA secondary to the hypotension.? It is doubtful diuretics will be efficacious at this point until the GENNA resolves, which will likely take 48 to 96 hours 3. In the meantime
== END 2022-01-14 09:04 | disposition expired | DRG 226 ==
LOC: 2ND 13:56
PROVIDERS: Internal Medicine Pulmonary Disease; Surgery; Admitting Provider Family Medicine; PCP Family Medicine; Referring Provider Internal Medicine; Visit Provider Family Medicine
PROC: 0JH609Z Insertion of Cardiac Resynchronization Defibrillator Pulse Generator into Chest Subcutaneous Tissue and Fascia, Open Approach (ICD-10-PCS; principal; 2022-01-03 11:00)
PROC: 0DH63UZ Insertion of Feeding Device into Stomach, Percutaneous Approach (ICD-10-PCS; CPT 43246; principal; 2022-01-11 07:30)
DX: I46.9 Cardiac arrest, cause unspecified (principal); J18.9 Pneumonia, unspecified organism; J96.01 Acute respiratory failure with hypoxia; N17.9 Acute kidney failure, unspecified; E87.1 Hypo-osmolality and hyponatremia; I50.22 Chronic systolic (congestive) heart failure; G93.1 Anoxic brain damage, not elsewhere classified; I25.10 Atherosclerotic heart disease of native coronary artery without angina pectoris; I48.0 Paroxysmal atrial fibrillation; Z51.5 Encounter for palliative care; I27.20 Pulmonary hypertension, unspecified; Z79.01 Long term (current) use of anticoagulants; Z95.5 Presence of coronary angioplasty implant and graft; I25.5 Ischemic cardiomyopathy; E87.6 Hypokalemia; Z95.810 Presence of automatic (implantable) cardiac defibrillator; Z95.1 Presence of aortocoronary bypass graft; R63.30 Feeding difficulties, unspecified; Z93.1 Gastrostomy status; I08.3 Combined rheumatic disorders of mitral, aortic and tricuspid valves; R57.0 Cardiogenic shock; I11.0 Hypertensive heart disease with heart failure
CPT/HCPCS: 31500; 94002; 43246; 33249; 36415; 70450; 71045; 80048; 80053; 81001; 82140; 82533; 82803; 82962; 83735; 84100; 85007; 85025; 87040; 87070; 87086; 87205; 87581; 87632; 87798; 92526; 92610; 93005; 93308; 93970; 94003; 94640; 94760; 94761; 97110; 97163; 97166; 97530; C1725; C1769; C1882; C1894; C1900; C9803; J0282; J0456; J0696; J2260; J2310; J7060; Q9967; U0003; U0005